=== PATIENT | female | born 1975 | race Caucasian/White ===

== ENCOUNTER 2017-02-11 15:47 | Inpatient (IN) | payer OTHER ==
[~2017-02-11] VITALS: Ht 152.4 cm; Wt 72.6 kg
[2017-02-11 18:34] LABS: ADD UMIC NO; URINE BILIRUBIN (Dip) NEGATIVE (NEGATIVE); URINE BLOOD (Dip) NEGATIVE (NEGATIVE); URINE COLOR LT. YELLOW (YELLOW); URINE GLUCOSE (Dip) NEGATIVE (NEGATIVE); URINE KETONES (Dip) NEGATIVE (NEGATIVE); URINE LEUKOCYTE ESTERASE (Dip) NEGATIVE (NEGATIVE); URINE NITRITE (Dip) NEGATIVE (NEGATIVE); URINE TOTAL PROTEIN (Dip) NEGATIVE (NEGATIVE); URINE UROBILINOGEN (Dip) 0.2 E.U./dL (0.1-1.0)
[2017-02-11 18:38] VITALS: Ht 152.4 cm; Wt 72.6 kg
[2017-02-11 19:14] VITALS: BP 116/67; PULSE 90; RESP 18
[2017-02-11 19:57] VITALS: BP 115/67; RESP 19
--- NOTE | 2017-02-11 19:59 | QN ---
Documentation Comment a/p htn cva hx lupus plan per order LINDSAY WEISS MD Feb 11, 2017 19:59
[2017-02-11] MEDS ORDERED: LACTULOSE 30ML CUP PO PRN (20:00)
[2017-02-11] MEDS ORDERED: MAGNESIUM HYDROXIDE 30ML CUP PO PRN (20:00)
[2017-02-11] MEDS ORDERED: PHENOL 1.4% SOLN 180 ML BTL MT PRN (20:00)
[2017-02-11] MEDS ORDERED: BISACODYL 10 MG SUPP PR PRN (20:00)
[2017-02-11] MEDS ORDERED: DIPHENHYDRAMINE 50 MG INJ IV PRN (20:00)
[2017-02-11] MEDS ORDERED: LORAZEPAM 2 MG INJ IV PRN (20:00)
[2017-02-11] MEDS: HYDROmorphONE 1 MG/ML SYG IV PRN (20:48)
[2017-02-11] MEDS: SENNA TAB PO SCH (21:35)
[2017-02-11] MEDS: ATORVASTATIN 20 MG TAB PO SCH (21:36)
[2017-02-11] MEDS: AMLODIPINE 5 MG TAB PO SCH (21:36)
[2017-02-11] MEDS: DOCUSATE SODIUM 100 MG CAP PO SCH (21:36)
[2017-02-11] MEDS: ENOXAPARIN 80 MG/0.8 ML SYG SC SCH (21:39)
[2017-02-11] MEDS: NACL 0.9% 3 ML SYG IV SCH (22:08)
[2017-02-12] MEDS: NACL 0.9% 3 ML SYG IV SCH ×3 (06:27→22:57)
[2017-02-12] MEDS: PANTOPRAZOLE 40 MG INJ IV SCH (06:28)
[2017-02-12 06:40] LABS: ADD SCAN DIFF NO
[2017-02-12 06:44] LABS: BASOPHILS % 0.3 % (0.0-2.0); EOSINOPHILS # 0.2 10^3/ul (0.0-0.5); EOSINOPHILS % 2.7 % (0.0-7.0); HEMATOCRIT 38.7 % (37.0-47.0); HEMOGLOBIN 12.5 g/dl (12.0-16.0); LYMPHOCYTES # 2.1 10^3/ul (0.8-2.9); MEAN CORPUSCULAR HEMOGLOBIN 27.4 pg (29.0-33.0); MEAN CORPUSCULAR HGB CONC 32.3 g/dl (32.0-37.0); MEAN CORPUSCULAR VOLUME 84.9 fl (82.0-101.0); MEAN PLATELET VOLUME 10.4 fl (7.4-10.4); MONOCYTE # 0.5 10^3/ul (0.3-0.9); MONOCYTES % 6.9 % (0.0-11.0); NEUTROPHIL # 4.6 10^3/ul (1.6-7.5); NEUTROPHILS % 61.8 % (39.0-77.0); PLATELET COUNT 306 10^3/UL (140-415); RED BLOOD COUNT 4.56 10^6/ul (4.20-5.40); RED CELL DISTRIBUTION WIDTH 13.7 % (11.5-14.5); WHITE BLOOD COUNT 7.5 10^3/ul (4.8-10.8)
[2017-02-12 06:57] LABS: ALBUMIN 3.6 g/dl (3.3-4.9)
[2017-02-12 06:58] LABS: POTASSIUM 3.9 mmol/L (3.5-5.1)
[2017-02-12 07:00] LABS: BILIRUBIN,INDIRECT 0.9 mg/dl (0-1.1); BILIRUBIN,TOTAL 0.9 mg/dl (0.2-1.3); CREATININE 0.67 mg/dl (0.44-1.00); TOTAL PROTEIN 7.2 g/dl (6.1-8.1)
[2017-02-12 07:01] LABS: CALCIUM 8.6 mg/dl (8.4-10.2)
[2017-02-12 08:00] VITALS: BP 97/57; RESP 20
[2017-02-12] MEDS: ASPIRIN (EC) 81 MG TAB PO SCH (09:36)
[2017-02-12] MEDS: ENOXAPARIN 80 MG/0.8 ML SYG SC SCH ×2 (09:37→20:53)
[2017-02-12] MEDS: DOCUSATE SODIUM 100 MG CAP PO SCH ×2 (09:38→20:52)
[2017-02-12] MEDS: ACETAMINOPHEN 325 MG TAB PO PRN ×2 (09:50→15:17)
--- NOTE | 2017-02-12 12:31 | HP ---
DATE OF ADMISSION: 02/11/2017 PHYSICAL MEDICINE AND REHABILITATION HISTORY AND PHYSICAL/POST- ADMISSION ASSESSMENT DATE OF VISIT: 02/12/2017 REHABILITATION IMPAIRMENT GROUP: Posterior left frontal lobe cerebrovascular accident. CHIEF COMPLAINT: Impaired mobility, left-sided weakness, difficulty with speech. HISTORY OF PRESENT ILLNESS: This is a 42-year-old right-handed female with past medical history significant for lupus and hypertension, who initially presented to outside hospital on 02/05/2017 with difficulty in speech and left- sided weakness. Workup done in the hospital including MRI brain which showed a large area of acute infarction involving the posterior left frontal lobe extending to the insular cortex. A CT angio showed no hemodynamically significant stenosis or occlusion, no aneurysms. The patient was evaluated by neurology. She was out of the window timeframe to receive TPA. She did have further workup per neurology, unfortunately our records here of her hospital stay there are limited. The patient's functional deficits noted to include significant left-sided weakness, aphasia, dysphagia as well as impairments in mobility and self-care ADLs. She did work with physical, occupational and speech therapy and noted to have significant functional decline from her baseline independent status. She was noted to have mild to moderate oropharyngeal dysphagia and ST recommended pureed diet with thin liquids. With physical therapy, she required minimal assistance for transfers and gait of 10 feet with a walker. She required moderate assistance for most of her ADLs. Due to her overall significant functional decline and ongoing medical comorbidities, she was thought to benefit from acute inpatient rehabilitation. PAST MEDICAL AND PAST SURGICAL HISTORY: As stated in the history of present illness including history of lupus and hypertension. FAMILY HISTORY: Reports noncontributory. SOCIAL HISTORY: Denies all current toxic habits. The patient lives with her in a two-story home with 12 steps to get to the second floor. No steps to enter the home. The patient's reports that she would be able to stay on the bottom floor on discharge if needed. Prior to her stroke, the patient was completely independent for all functional mobility and self-care ADLs and did not use any assistive device. Please see history and physical for current level of function MEDICATIONS ON ADMISSION: Reviewed in the electronic medical records including : 1. Aspirin. 2. Protonix. 3. Norvasc. 4. Lipitor. 5. Lovenox. 6. Colace. 7. Senokot. 8. Benadryl prn. 9. Dilaudid prn. 10. Ativan prn. 11. Phenol prn 12. Tylenol prn. 13. Dulcolax prn. 14. Milk of magnesia prn. 15. Lactulose prn. ALLERGIES: THE PATIENT IS ALLERGIC TO: 1. MORPHINE. 2. PREDNISONE. LABORATORIES/IMAGING: Reviewed in the electronic medical records. WBC 7.5, hemoglobin 12.5, hematocrit 38.7, platelets 306. Sodium 138, potassium 3.9, BUN 11, creatinine 0.67. REVIEW OF SYSTEMS: Limited by patient's aphasia. GENERAL: Denies fevers. No chills. EYES: She does report at times double vision since her stroke, but no new visual changes today. ENT: Significant for dysphagia, currently on modified diet. RESPIRATORY: Denies current shortness of breath. No cough. CARDIOVASCULAR: Denies chest pain. No palpitations. GENITOURINARY: Denies hematuria. No dysuria. GASTROINTESTINAL: No abdominal pain, no nausea, no vomiting. NEUROLOGICAL: Significant for left-sided weakness and left-sided hemisensory loss. MUSCULOSKELETAL: Significant for history of lupus. SKIN: Denies itching. PSYCHIATRIC: Denies history of anxiety or depression. A 10-point review of systems is otherwise negative. PHYSICAL EXAMINATION: VITAL SIGNS: Blood pressure 115/67, heart rate 99, temperature 98.2 Fahrenheit , O2 saturation 98% on room air. GENERAL: The patient is a well-nourished, well-developed, awake, alert, in no acute distress. HEENT: Normocephalic, atraumatic. Mucous membranes moist. Extraocular muscles are intact. NECK: Supple, nontender. RESPIRATORY: Respirations are nonlabored, symmetrical air entry bilaterally. No wheezing. No accessory muscle use. CARDIOVASCULAR: Regular rate and rhythm, audible S1, S2. ABDOMEN: Soft, nontender, bowel sounds present, no masses palpated. EXTREMITIES: Calves nontender. No cyanosis, no distal edema. SKIN: Rash underneath bilateral breasts. Skin is warm and dry. PSYCHIATRIC: Affect is somewhat flat. She is oriented to self, hospital (when given choices), and January 2017. MUSCULOSKELETAL/ NEUROLOGIC: The patient is awake, alert, in no acute distress. The patient is significantly aphasic, more so expressive component, and is communicating through a language board. She is able to follow simple commands and responds to yes/no questions. Extraocular muscles are intact. Reports decreased sensation on the left side of her face. Tongue protrudes midline. Overall on the right side she appears to have good to good plus strength with active range of motion within functional limits. Left upper extremity strength approximately 2 to 2+/5 with some pain reported with movement , possible neuropathic pain component, but reports discomfort from prior peripheral line that was infiltrated at prior hospital. Left hip flexors, knee extensors 2-/5, minimal movement at left ankle. Patient reports decreased sensation overall on the left. Tone testing limited due to patient somewhat guarding. No ankle clonus. IMPRESSION: 1. Acute infarction involving the posterior frontal lobe extending into the insular cortex. 2. Impaired mobility, gait and balance. 3. Impaired self-care activities of daily living. 4. Left nondominant hemiparesis. 5. Left hemisensory loss. 6. Aphasia 7. Oropharyngeal dysphagia. 8. Hypertension. 9. Lupus. PLAN: 1. The patient will be admitted for inpatient comprehensive interdisciplinary rehabilitation to address impairments of medical conditions listed above, while assessing equipment needs and compensatory strategies with coordinated interdisciplinary services that will include physical, occupational and speech therapy and close monitoring and treatment with 24-hour rehabilitation nursing. This interdisciplinary program will be performed under the direction of church secretary. The patient is anticipated to be able to tolerate 3 hours daily of therapies for at least 5/7 days per week. 2. Begin physical therapy for bed mobility, transfers, balance training, gait training, lower extremity strengthening, range of motion, coordination. 3. Begin occupational therapies for activities of daily living, functional transfers, patient education, adaptive equipment evaluation, upper extremity strengthening, range of motion, coordination. 4. Speech therapy for treatment of dysphagia as well as aphasia. 5. Rehabilitation nursing to provide the patient education regarding current medications as they relate to medical illness. Monitor pain, monitor bowel and bladder programs and administer such programs and reinforce those activities with therapies. 6. Dr. Ace is following for management of medical comorbidities. 7. For hypertension, currently blood pressure appears to be controlled on Norvasc. Internal medicine to adjust further as needed. 8. For her history of lupus, we will monitor for flareups and continue medical management per internal medicine. 9. Continue secondary stroke prevention per neurology recommendations. Have asked staff to try to obtain complete medical records from outside hospital. 10. Possible adjustment disorder in the setting of acute CVA. Monitor mood. REHABILITATION GOALS: Decrease overall burden of care on caregiver. Improve bed mobility, transfers, gait and self-care ADLs to standby assistance level with assistive device and adaptive equipment as needed. Improve speech and swallowing and be able to have the patient meet nutritional needs by mouth. ESTIMATED LENGTH OF STAY: Approximately 2-3 weeks. ANTICIPATED DISPOSITION: To home with family support. Her case will be discussed at the weekly interdisciplinary conference. PROGNOSIS: At the current time, this inpatient hospital rehabilitation stay is medically necessary to achieve important health and functional goals. The patient requires frequent physician visits, 24-hour rehabilitation nursing and a coordinated intensive rehabilitation program as described above to address complex medical, nursing and rehabilitation needs. The patient has a good prognosis for benefiting from this program and returning to home and community. REHABILITATION PHYSICIAN POST-ADMISSION ASSESSMENT REVIEW: I have had the opportunity to examine the patient within 24 hours of admission and have reviewed the preadmission assessment and find it consistent with my examination and evaluation of the patient. I confirm that this patient is appropriate for admission and treatment in this inpatient rehabilitation hospital. She needs intensive interdisciplinary rehabilitation care and is expected to achieve meaningful goals within a reasonable period of time that are consistent with the planned discharge disposition as noted above. Dictated By: PRABHA WAGGONER MD, RA/CLARKE Conf#: [id number] DID#: [id number] [id number]
--- NOTE | 2017-02-12 18:12 | CONS ---
Date/Time of Note Date/Time of Note DATE: 02/12/17 TIME: 18:03 Assessment/Plan Assessment/Plan Chief Complaint/Hosp Course 1. S/p stroke 2. expressive aphasia 3. Hypertension stable 4. History of lupus Problems: Additional Assessment/Plan 1. Control hypertension 2. Continue OT Consultation Date/Type/Reason Admit Date/Time Feb 11, 2017 at 17:51 Initial Consult Date 02/11/17 Type of Consultation: nephrology Reason for Consultation Dr Ace 24 HR Interval Summary Subjective hx not possible: pt non-verbal Exam/Review of Systems Vital Signs Vitals Vital Signs Date Time Temp Pulse Resp B/P Pulse Ox O2 Delivery O2 Flow Rate FiO2 02/12/17 08:00 98.1 80 20 97/57 96 02/11/17 19:14 Room Air Intake and Output 02/11/17 02/11/17 02/12/17 15:00 23:00 07:00 Intake Total 500 ml Balance 500 ml Exam Constitutional: alert Psych: no complaints Eyes: nl conjunctiva ENMT: nl external ears & nose Neck: supple Respiratory: clear to auscultation Cardiovascular: regular rate and rhythm Gastrointestinal: soft Results Result Diagram: 02/12/17 0600 02/12/17 0600 Results 24 hrs Laboratory Tests Test 02/11/17 18:21 02/12/17 06:00 Urine Color LT. YELLOW Urine Clarity CLEAR Urine pH 6.5 Urine Specific [place] 1.010 Urine Ketones NEGATIVE Urine Nitrite NEGATIVE Urine Bilirubin NEGATIVE Urine Urobilinogen 0.2 E.U./dL Urine Leukocyte Esterase NEGATIVE Urine Hemoglobin NEGATIVE Urine Glucose NEGATIVE Urine Total Protein NEGATIVE White Blood Count 7.5 Red Blood Count 4.56 Hemoglobin 12.5 Hematocrit 38.7 Mean Corpuscular Volume 84.9 Mean Corpuscular Hemoglobin 27.4 L Mean Corpuscular Hemoglobin Concent 32.3 Red Cell Distribution Width 13.7 Platelet Count 306 Mean Platelet Volume 10.4 Neutrophils % 61.8 Lymphocytes % 28.0 Monocytes % 6.9 Eosinophils % 2.7 Basophils % 0.3 Nucleated Red Blood Cells % 0.0 Neutrophils # 4.6 Lymphocytes # 2.1 Monocytes # 0.5 Eosinophils # 0.2 Basophils # 0.0 Nucleated Red Blood Cells # 0.0 Sodium Level 138 Potassium Level 3.9 Chloride Level 104 Carbon Dioxide Level 28 Anion Gap 10 Blood Urea Nitrogen 11 Creatinine 0.67 Glucose Level 90 Calcium Level 8.6 Total Bilirubin 0.9 Direct Bilirubin 0.00 Indirect Bilirubin 0.9 Aspartate Amino Transf (AST/SGOT) 23 Alanine Aminotransferase (ALT/SGPT) 22 Alkaline Phosphatase 103 Total Protein 7.2 Albumin 3.6 Globulin 3.60 H Albumin/Globulin Ratio 1.00 Medications Medications Current Medications Amlodipine Besylate (Norvasc) 5 mg HS PO Last administered on 02/11/17 21:36; Admin Dose 5 MG; Start 02/11/17 at 21:00 Atorvastatin Calcium (Lipitor) 20 mg DAILY@21 PO Last administered on 21:36; Admin Dose 20 MG; Start 02/11/17 at 21:00 Enoxaparin Sodium (Lovenox) 70 mg Q12 SC Last administered on 02/12/17 09:37; Admin Dose 70 MG; Start 02/11/17 at 21:00 Diphenhydramine HCl (Benadryl) 25 mg Q6H PRN IV ALLERGIC REACTION; Start at 20:00 Hydromorphone HCl (Dilaudid) 0.5 mg Q4H PRN IV PAIN 4-6 (MODERATE) Last administered on 02/11/17 20:48; Admin Dose 0.5 MG; Start 02/11/17 at 20:00 Lorazepam (Ativan) 0.5 mg Q6H PRN IV ANXIETY; Start 02/11/17 at 20:00 Pantoprazole (Protonix Iv) 40 mg DAILY@06 IV Last administered on 02/12/17 06: 28; Admin Dose 40 MG; Start 02/12/17 at 06:00 Phenol (Chloraseptic Throat [place]) 1 spray PRN PRN [place] SORE THROAT; Start at 20:00 IV Flush (NS 3 ml) 3 ml Q8 IV Last administered on 02/12/17 13:52; Admin Dose 3 ML; Start 02/11/17 at 22:00 Docusate Sodium (Colace) 100 mg BID PO Last administered on 02/12/17 09:38; Admin Dose 100 MG; Start 02/11/17 at 21:00 Senna (Senokot) 1 tab HS PO Last administered on 02/11/17 21:35; Admin Dose 1 TAB; Start 02/11/17 at 21:00 Acetaminophen (Tylenol Tab) 650 mg Q4H PRN PO PAIN Last administered on 15:17; Admin Dose 650 MG; Start 02/11/17 at 20:00 Bisacodyl (Dulcolax Supp) 10 mg DAILY PRN [place] CONSTIPATION; Start 02/11/17 at 20 :00 Magnesium Hydroxide (Milk Of Mag) 30 ml BID PRN PO CONSTIPATION; Start at 20:00 Lactulose (Enulose) 20 gm DAILY PRN PO CONSTIPATION; Start 02/11/17 at 20:00 SUSIE GRAVES Feb 12, 2017 18:12
[2017-02-12 20:02] VITALS: BP 116/66; RESP 18
[2017-02-12] MEDS: AMLODIPINE 5 MG TAB PO SCH (20:52)
[2017-02-12] MEDS: SENNA TAB PO SCH (20:52)
[2017-02-12] MEDS: ATORVASTATIN 20 MG TAB PO SCH (20:52)
[2017-02-12] MEDS: HYDROmorphONE 1 MG/ML SYG IV PRN (21:47)
[2017-02-13] MEDS: PANTOPRAZOLE 40 MG INJ IV SCH (06:40)
[2017-02-13] MEDS: NACL 0.9% 3 ML SYG IV SCH ×3 (06:40→22:08)
[2017-02-13 07:37] VITALS: BP 97/53; RESP 18
[2017-02-13] MEDS: ASPIRIN (EC) 81 MG TAB PO SCH (08:28)
[2017-02-13] MEDS: DOCUSATE SODIUM 100 MG CAP PO SCH ×2 (08:29→20:14)
[2017-02-13] MEDS: ENOXAPARIN 80 MG/0.8 ML SYG SC SCH ×2 (08:36→20:16)
[2017-02-13] MEDS: ACETAMINOPHEN 325 MG TAB PO PRN (11:38)
[2017-02-13] MEDS: HYDROmorphONE 1 MG/ML SYG IV PRN (14:04)
[2017-02-13] MEDS ORDERED: HYDROCODONE/APAP (5/325) TAB PO PRN (15:00)
--- NOTE | 2017-02-13 15:29 | PN ---
Date/Time of Note Date/Time of Note DATE: 02/13/17 TIME: 15:26 Assessment/Plan VTE Prophylaxis VTE Prophylaxis Intervention: other Lines/Catheters IV C[facility]ter Type (from [facility] [facility] Urinary Cath still in place: No Assessment/Plan Chief Complaint/Hosp Course HTN HX LUPUS CVA W LEFT SIDE WEAKNESS HX MIGRAINE Problems: Subjective 24 Hr Interval Summary Subjective hx not possible: other (LEFT SIDE WEAKNESS) Eyes: no complaints ENT: no complaints Respiratory: no complaints Cardiovascular: chest pain Gastrointestinal: no complaints Genitourinary: no complaints Musculoskeletal: back pain Skin: no complaints Neurologic: no complaints, other (LEFT SIDE WEAKNESS) Endocrine: no complaints Immunologic: no complaints Exam/Review of Systems Vital Signs Vitals Vital Signs Date Time Temp Pulse Resp B/P Pulse Ox O2 Delivery O2 Flow Rate FiO2 02/13/17 07:37 98.0 74 18 97/53 98 02/11/17 19:14 Room Air Intake and Output 02/12/17 02/12/17 02/13/17 15:00 23:00 07:00 Intake Total 1000 ml 700 ml Balance 1000 ml 700 ml Exam Constitutional: alert, non-verbal, oriented, well developed, No distress Psych: no complaints Head: normocephalic Eyes: nl conjunctiva ENMT: nl external ears & nose Neck: masses, non-tender, supple Respiratory: clear to auscultation, normal air movement Cardiovascular: nl pulses, regular rate and rhythm Gastrointestinal: nl liver, spleen, soft, No distended Musculoskeletal: nl extremities to inspection Extremities: normal pulses Neurological: CHEFS II-XII intact Results Result Diagram: 02/12/17 0600 02/12/17 0600 Medications Medications Current Medications Amlodipine Besylate (Norvasc) 5 mg HS PO Last administered on 02/12/17 20:52; Admin Dose 5 MG; Start 02/11/17 at 21:00 Atorvastatin Calcium (Lipitor) 20 mg DAILY@21 PO Last administered on 20:52; Admin Dose 20 MG; Start 02/11/17 at 21:00 Enoxaparin Sodium (Lovenox) 70 mg Q12 SC Last administered on 02/13/17 08:36; Admin Dose 70 MG; Start 02/11/17 at 21:00 Diphenhydramine HCl (Benadryl) 25 mg Q6H PRN IV ALLERGIC REACTION; Start at 20:00 Hydromorphone HCl (Dilaudid) 0.5 mg Q4H PRN IV PAIN 4-6 (MODERATE) Last administered on 02/13/17 14:04; Admin Dose 0.5 MG; Start 02/11/17 at 20:00 Lorazepam (Ativan) 0.5 mg Q6H PRN IV ANXIETY; Start 02/11/17 at 20:00 Pantoprazole (Protonix Iv) 40 mg DAILY@06 IV Last administered on 02/13/17 06: 40; Admin Dose 40 MG; Start 02/12/17 at 06:00 Phenol (Chloraseptic Throat [place]) 1 spray PRN PRN [place] SORE THROAT; Start at 20:00 IV Flush (NS 3 ml) 3 ml Q8 IV Last administered on 02/13/17 14:07; Admin Dose 3 ML; Start 02/11/17 at 22:00 Docusate Sodium (Colace) 100 mg BID PO Last administered on 02/13/17 08:29; Admin Dose 100 MG; Start 02/11/17 at 21:00 Senna (Senokot) 1 tab HS PO Last administered on 02/12/17 20:52; Admin Dose 1 TAB; Start 02/11/17 at 21:00 Acetaminophen (Tylenol Tab) 650 mg Q4H PRN PO PAIN Last administered on 11:38; Admin Dose 650 MG; Start 02/11/17 at 20:00 Bisacodyl (Dulcolax Supp) 10 mg DAILY PRN [place] CONSTIPATION; Start 02/11/17 at 20 :00 Magnesium Hydroxide (Milk Of Mag) 30 ml BID PRN PO CONSTIPATION; Start at 20:00 Lactulose (Enulose) 20 gm DAILY PRN PO CONSTIPATION; Start 02/11/17 at 20:00 Nystatin (Nystatin Powder) 1 applic BID TOP ; Start 02/13/17 at 21:00 Hydromorphone HCl (Dilaudid) 2 mg Q4H PRN PO PAIN; Start 02/13/17 at 15:00 LINDSAY WEISS MD Feb 13, 2017 15:29
[2017-02-13] MEDS: HYDROmorphONE 2 MG TAB PO PRN ×2 (18:16→22:09)
[2017-02-13] MEDS: SENNA TAB PO SCH (20:14)
[2017-02-13] MEDS: ATORVASTATIN 20 MG TAB PO SCH (20:14)
[2017-02-13] MEDS: NYSTATIN 30 GM POWDER BTL TOP SCH (20:16)
[2017-02-13] MEDS: AMLODIPINE 5 MG TAB PO SCH (20:20)
[2017-02-13 20:42] VITALS: BP 103/55; RESP 18
[2017-02-14] MEDS: PANTOPRAZOLE (EC) 40 MG TAB PO SCH (06:28)
[2017-02-14] MEDS: NACL 0.9% 3 ML SYG IV SCH ×3 (06:28→20:36)
[2017-02-14] MEDS: ASPIRIN (EC) 81 MG TAB PO SCH (08:11)
[2017-02-14] MEDS: HYDROmorphONE 1 MG/ML SYG IV PRN ×4 (08:11→17:46)
[2017-02-14] MEDS: DOCUSATE SODIUM 100 MG CAP PO SCH ×2 (09:00→20:35)
[2017-02-14] MEDS: NYSTATIN 30 GM POWDER BTL TOP SCH ×2 (09:00→20:37)
[2017-02-14] MEDS: ENOXAPARIN 80 MG/0.8 ML SYG SC SCH ×2 (10:08→20:37)
[2017-02-14] MEDS: HYDROmorphONE 2 MG TAB PO PRN ×2 (12:23→21:11)
--- NOTE | 2017-02-14 13:29 | CONS ---
Date/Time of Note Date/Time of Note DATE: 02/14/17 TIME: 13:28 Consult Date/Type/Reason Admit Date/Time Feb 11, 2017 at 17:51 Initial Consult Date Type of Consultation: nephrology Subjective Family conference held today and current medical and functional status reviewed , in addition to dc goals. Objective Vital Signs Date Time Temp Pulse Resp B/P Pulse Ox O2 Delivery O2 Flow Rate FiO2 02/13/17 20:42 98.2 68 18 103/55 98 02/11/17 19:14 Room Air Intake and Output 02/13/17 02/13/17 02/14/17 15:00 23:00 07:00 Intake Total 480 ml 240 ml 780 ml Balance 480 ml 240 ml 780 ml INTERDISCIPLINARY TEAM CONFERENCE BOWEL- Cont BLADDER-Cont SKIN- intact OT- DRESSING-mod/max BATHING-mod/max TOILETING-mod/max PT- BED MOBILITY-max TRANSFERS-max AMBULATION-max 20 feet W.C. MOBILITY-min/mod SPEECH- COGNITION-max DYPHAGIA- just upgraded from puree diet to mech soft A/P- Interdisciplinary team conference held today. Please see interdisciplinary sheet. Working toward d.c. with family with post discharge follow up of physical therapy, occupational therapy. Will pursue insurance authorization for further stay. Results/Medications Result Diagram: 02/12/17 0600 02/12/17 0600 Medications Current Medications Amlodipine Besylate (Norvasc) 5 mg HS PO Last administered on 02/12/17 20:52; Admin Dose 5 MG; Start 02/11/17 at 21:00 Atorvastatin Calcium (Lipitor) 20 mg DAILY@21 PO Last administered on 20:14; Admin Dose 20 MG; Start 02/11/17 at 21:00 Enoxaparin Sodium (Lovenox) 70 mg Q12 SC Last administered on 02/14/17 10:08; Admin Dose 70 MG; Start 02/11/17 at 21:00 Diphenhydramine HCl (Benadryl) 25 mg Q6H PRN IV ALLERGIC REACTION; Start at 20:00 Hydromorphone HCl (Dilaudid) 0.5 mg Q4H PRN IV PAIN 4-6 (MODERATE) Last administered on 02/14/17 10:00; Admin Dose 0.5 MG; Start 02/11/17 at 20:00 Lorazepam (Ativan) 0.5 mg Q6H PRN IV ANXIETY; Start 02/11/17 at 20:00 Phenol (Chloraseptic Throat [place]) 1 spray PRN PRN [place] SORE THROAT; Start at 20:00 IV Flush (NS 3 ml) 3 ml Q8 IV Last administered on 02/14/17 06:28; Admin Dose 3 ML; Start 02/11/17 at 22:00 Docusate Sodium (Colace) 100 mg BID PO Last administered on 02/13/17 20:14; Admin Dose 100 MG; Start 02/11/17 at 21:00 Senna (Senokot) 1 tab HS PO Last administered on 02/13/17 20:14; Admin Dose 1 TAB; Start 02/11/17 at 21:00 Acetaminophen (Tylenol Tab) 650 mg Q4H PRN PO PAIN Last administered on 11:38; Admin Dose 650 MG; Start 02/11/17 at 20:00 Bisacodyl (Dulcolax Supp) 10 mg DAILY PRN [place] CONSTIPATION; Start 02/11/17 at 20 :00 Magnesium Hydroxide (Milk Of Mag) 30 ml BID PRN PO CONSTIPATION; Start at 20:00 Lactulose (Enulose) 20 gm DAILY PRN PO CONSTIPATION; Start 02/11/17 at 20:00 Nystatin (Nystatin Powder) 1 applic BID TOP Last administered on 02/14/17 09: 00; Admin Dose 1 APPLIC; Start 02/13/17 at 21:00 Hydromorphone HCl (Dilaudid) 2 mg Q4H PRN PO PAIN Last administered on 12:23; Admin Dose 2 MG; Start 02/13/17 at 15:00 Pantoprazole (Protonix Tab) 40 mg DAILY@06 PO Last administered on 02/14/17 06 :28; Admin Dose 40 MG; Start 02/14/17 at 06:00 LARISSA WILLS MD Feb 14, 2017 13:29
--- NOTE | 2017-02-14 18:24 | CONS ---
Date/Time of Note Date/Time of Note DATE: 02/14/17 TIME: 18:24 Assessment/Plan Assessment/Plan Chief Complaint/Hosp Course HTN HX LUPUS CVA W LEFT SIDE WEAKNESS HX MIGRAINE better plan pt ot Problems: Consultation Date/Type/Reason Admit Date/Time Feb 11, 2017 at 17:51 Initial Consult Date Type of Consultation: nephrology 24 HR Interval Summary Constitutional: no complaints Exam/Review of Systems Vital Signs Vitals Vital Signs Date Time Temp Pulse Resp B/P Pulse Ox O2 Delivery O2 Flow Rate FiO2 02/13/17 20:42 98.2 68 18 103/55 98 02/11/17 19:14 Room Air Intake and Output 02/13/17 02/13/17 02/14/17 15:00 23:00 07:00 Intake Total 480 ml 240 ml 780 ml Balance 480 ml 240 ml 780 ml Exam Neck: supple Respiratory: clear to auscultation Cardiovascular: regular rate and rhythm Results Result Diagram: 02/12/17 0600 02/12/17 0600 Medications Medications Current Medications Amlodipine Besylate (Norvasc) 5 mg HS PO Last administered on 02/12/17 20:52; Admin Dose 5 MG; Start 02/11/17 at 21:00 Atorvastatin Calcium (Lipitor) 20 mg DAILY@21 PO Last administered on 20:14; Admin Dose 20 MG; Start 02/11/17 at 21:00 Enoxaparin Sodium (Lovenox) 70 mg Q12 SC Last administered on 02/14/17 10:08; Admin Dose 70 MG; Start 02/11/17 at 21:00 Diphenhydramine HCl (Benadryl) 25 mg Q6H PRN IV ALLERGIC REACTION; Start at 20:00 Hydromorphone HCl (Dilaudid) 0.5 mg Q4H PRN IV PAIN 4-6 (MODERATE) Last administered on 02/14/17 17:46; Admin Dose 0.5 MG; Start 02/11/17 at 20:00 Lorazepam (Ativan) 0.5 mg Q6H PRN IV ANXIETY; Start 02/11/17 at 20:00 Phenol (Chloraseptic Throat [place]) 1 spray PRN PRN [place] SORE THROAT; Start at 20:00 IV Flush (NS 3 ml) 3 ml Q8 IV Last administered on 02/14/17 14:33; Admin Dose 3 ML; Start 02/11/17 at 22:00 Docusate Sodium (Colace) 100 mg BID PO Last administered on 02/13/17 20:14; Admin Dose 100 MG; Start 02/11/17 at 21:00 Senna (Senokot) 1 tab HS PO Last administered on 02/13/17 20:14; Admin Dose 1 TAB; Start 02/11/17 at 21:00 Acetaminophen (Tylenol Tab) 650 mg Q4H PRN PO PAIN Last administered on 11:38; Admin Dose 650 MG; Start 02/11/17 at 20:00 Bisacodyl (Dulcolax Supp) 10 mg DAILY PRN [place] CONSTIPATION; Start 02/11/17 at 20 :00 Magnesium Hydroxide (Milk Of Mag) 30 ml BID PRN PO CONSTIPATION; Start at 20:00 Lactulose (Enulose) 20 gm DAILY PRN PO CONSTIPATION; Start 02/11/17 at 20:00 Nystatin (Nystatin Powder) 1 applic BID TOP Last administered on 02/14/17 09: 00; Admin Dose 1 APPLIC; Start 02/13/17 at 21:00 Hydromorphone HCl (Dilaudid) 2 mg Q4H PRN PO PAIN Last administered on 12:23; Admin Dose 2 MG; Start 02/13/17 at 15:00 Pantoprazole (Protonix Tab) 40 mg DAILY@06 PO Last administered on 02/14/17 06 :28; Admin Dose 40 MG; Start 02/14/17 at 06:00 LINDSAY WEISS MD Feb 14, 2017 18:24
[2017-02-14 19:47] VITALS: BP 117/67; RESP 20
[2017-02-14] MEDS: ATORVASTATIN 20 MG TAB PO SCH (20:35)
[2017-02-14] MEDS: SENNA TAB PO SCH (20:35)
[2017-02-14] MEDS: AMLODIPINE 5 MG TAB PO SCH (20:39)
[2017-02-15] MEDS: PANTOPRAZOLE (EC) 40 MG TAB PO SCH (06:46)
[2017-02-15] MEDS: NACL 0.9% 3 ML SYG IV SCH ×3 (06:47→21:15)
[2017-02-15 08:08] VITALS: BP 101/59; RESP 18
[2017-02-15] MEDS: DOCUSATE SODIUM 100 MG CAP PO SCH ×2 (08:27→21:11)
[2017-02-15] MEDS: ASPIRIN (EC) 81 MG TAB PO SCH (08:27)
[2017-02-15] MEDS: ENOXAPARIN 80 MG/0.8 ML SYG SC SCH ×2 (08:31→21:23)
[2017-02-15] MEDS: NYSTATIN 30 GM POWDER BTL TOP SCH ×2 (09:02→21:22)
[2017-02-15] MEDS: HYDROmorphONE 1 MG/ML SYG IV PRN ×4 (09:28→18:32)
[2017-02-15] MEDS: HYDROmorphONE 2 MG TAB PO PRN (10:51)
--- NOTE | 2017-02-15 10:53 | CONS ---
Date/Time of Note Date/Time of Note DATE: 02/15/17 TIME: 10:53 Consult Date/Type/Reason Admit Date/Time Feb 11, 2017 at 17:51 Type of Consultation: nephrology Subjective Patient motivated Objective pulm-cta abd-soft Vital Signs Date Time Temp Pulse Resp B/P Pulse Ox O2 Delivery O2 Flow Rate FiO2 02/15/17 08:08 98.2 62 18 101/59 97 02/11/17 19:14 Room Air Intake and Output 02/14/17 02/14/17 02/15/17 14:59 22:59 06:59 Intake Total 300 ml 520 ml 300 ml Balance 300 ml 520 ml 300 ml Results/Medications Result Diagram: 02/12/17 0600 02/12/17 0600 Medications Current Medications Amlodipine Besylate (Norvasc) 5 mg HS PO Last administered on 02/14/17 20:39; Admin Dose 5 MG; Start 02/11/17 at 21:00 Atorvastatin Calcium (Lipitor) 20 mg DAILY@21 PO Last administered on 20:35; Admin Dose 20 MG; Start 02/11/17 at 21:00 Enoxaparin Sodium (Lovenox) 70 mg Q12 SC Last administered on 02/15/17 08:31; Admin Dose 70 MG; Start 02/11/17 at 21:00 Diphenhydramine HCl (Benadryl) 25 mg Q6H PRN IV ALLERGIC REACTION; Start at 20:00 Hydromorphone HCl (Dilaudid) 0.5 mg Q4H PRN IV PAIN 4-6 (MODERATE) Last administered on 02/15/17 09:28; Admin Dose 0.5 MG; Start 02/11/17 at 20:00 Lorazepam (Ativan) 0.5 mg Q6H PRN IV ANXIETY; Start 02/11/17 at 20:00 Phenol (Chloraseptic Throat [place]) 1 spray PRN PRN [place] SORE THROAT; Start at 20:00 IV Flush (NS 3 ml) 3 ml Q8 IV Last administered on 02/15/17 06:47; Admin Dose 3 ML; Start 02/11/17 at 22:00 Docusate Sodium (Colace) 100 mg BID PO Last administered on 02/15/17 08:27; Admin Dose 100 MG; Start 02/11/17 at 21:00 Senna (Senokot) 1 tab HS PO Last administered on 02/14/17 20:35; Admin Dose 1 TAB; Start 02/11/17 at 21:00 Acetaminophen (Tylenol Tab) 650 mg Q4H PRN PO PAIN Last administered on 11:38; Admin Dose 650 MG; Start 02/11/17 at 20:00 Bisacodyl (Dulcolax Supp) 10 mg DAILY PRN [place] CONSTIPATION; Start 02/11/17 at 20 :00 Magnesium Hydroxide (Milk Of Mag) 30 ml BID PRN PO CONSTIPATION; Start at 20:00 Lactulose (Enulose) 20 gm DAILY PRN PO CONSTIPATION; Start 02/11/17 at 20:00 Nystatin (Nystatin Powder) 1 applic BID TOP Last administered on 02/15/17 09: 02; Admin Dose 1 APPLIC; Start 02/13/17 at 21:00 Hydromorphone HCl (Dilaudid) 2 mg Q4H PRN PO PAIN Last administered on 10:51; Admin Dose 2 MG; Start 02/13/17 at 15:00 Pantoprazole (Protonix Tab) 40 mg DAILY@06 PO Last administered on 02/15/17 06 :46; Admin Dose 40 MG; Start 02/14/17 at 06:00 Assessment/Plan Additional Assessment/Plan Rehab- Posterior L frontal infarct CVA Continue rehab program SLE HTN Dysphagia- improving LARISSA WILLS MD Feb 15, 2017 10:53
[2017-02-15] MEDS ORDERED: traMADol 50 MG TAB PO SCH (12:00)
[2017-02-15 15:20] VITALS: BP 125/65
--- NOTE | 2017-02-15 18:48 | PN ---
Date/Time of Note Date/Time of Note DATE: 02/15/17 TIME: 18:47 Assessment/Plan VTE Prophylaxis VTE Prophylaxis Intervention: other Lines/Catheters IV Catheter Type (from Nrs): Saline Lock Urinary Cath still in place: No Assessment/Plan Chief Complaint/Hosp Course HTN HX LUPUS CVA W LEFT SIDE WEAKNESS HX MIGRAINE better dizziness plan pt ot antivert Problems: Subjective 24 Hr Interval Summary Cardiovascular: no complaints Gastrointestinal: no complaints Genitourinary: no complaints Exam/Review of Systems Vital Signs Vitals Vital Signs Date Time Temp Pulse Resp B/P Pulse Ox O2 Delivery O2 Flow Rate FiO2 02/15/17 15:20 125/65 02/15/17 08:08 98.2 62 18 97 02/11/17 19:14 Room Air Intake and Output 02/14/17 02/14/17 02/15/17 15:00 23:00 07:00 Intake Total 300 ml 520 ml 300 ml Balance 300 ml 520 ml 300 ml Exam Respiratory: clear to auscultation Cardiovascular: regular rate and rhythm Gastrointestinal: soft Musculoskeletal: nl extremities to inspection Extremities: normal pulses Results Result Diagram: 02/12/17 0600 02/12/17 0600 Medications Medications Current Medications Amlodipine Besylate (Norvasc) 5 mg HS PO Last administered on 02/14/17 20:39; Admin Dose 5 MG; Start 02/11/17 at 21:00 Atorvastatin Calcium (Lipitor) 20 mg DAILY@21 PO Last administered on 20:35; Admin Dose 20 MG; Start 02/11/17 at 21:00 Enoxaparin Sodium (Lovenox) 70 mg Q12 SC Last administered on 02/15/17 08:31; Admin Dose 70 MG; Start 02/11/17 at 21:00 Diphenhydramine HCl (Benadryl) 25 mg Q6H PRN IV ALLERGIC REACTION; Start at 20:00 Hydromorphone HCl (Dilaudid) 0.5 mg Q4H PRN IV PAIN 4-6 (MODERATE) Last administered on 02/15/17 18:32; Admin Dose 0.5 MG; Start 02/11/17 at 20:00 Lorazepam (Ativan) 0.5 mg Q6H PRN IV ANXIETY; Start 02/11/17 at 20:00 Phenol (Chloraseptic Throat [place]) 1 spray PRN PRN [place] SORE THROAT; Start at 20:00 IV Flush (NS 3 ml) 3 ml Q8 IV Last administered on 02/15/17 14:00; Admin Dose 3 ML; Start 02/11/17 at 22:00 Docusate Sodium (Colace) 100 mg BID PO Last administered on 02/15/17 08:27; Admin Dose 100 MG; Start 02/11/17 at 21:00 Senna (Senokot) 1 tab HS PO Last administered on 02/14/17 20:35; Admin Dose 1 TAB; Start 02/11/17 at 21:00 Acetaminophen (Tylenol Tab) 650 mg Q4H PRN PO PAIN Last administered on 11:38; Admin Dose 650 MG; Start 02/11/17 at 20:00 Bisacodyl (Dulcolax Supp) 10 mg DAILY PRN [place] CONSTIPATION; Start 02/11/17 at 20 :00 Magnesium Hydroxide (Milk Of Mag) 30 ml BID PRN PO CONSTIPATION; Start at 20:00 Lactulose (Enulose) 20 gm DAILY PRN PO CONSTIPATION; Start 02/11/17 at 20:00 Nystatin (Nystatin Powder) 1 applic BID TOP Last administered on 02/15/17 09: 02; Admin Dose 1 APPLIC; Start 02/13/17 at 21:00 Hydromorphone HCl (Dilaudid) 2 mg Q4H PRN PO PAIN Last administered on 10:51; Admin Dose 2 MG; Start 02/13/17 at 15:00 Pantoprazole (Protonix Tab) 40 mg DAILY@06 PO Last administered on 02/15/17 06 :46; Admin Dose 40 MG; Start 02/14/17 at 06:00 Tramadol HCl (Ultram) 50 mg Q6 PRN PO PAIN LEVEL 1-5; Start 02/15/17 at 14:00 Meclizine HCl (Antivert) 12.5 mg TID PRN PO dizziness; Start 02/15/17 at 19:00 LINDSAY WEISS MD Feb 15, 2017 18:47
[2017-02-15 20:21] VITALS: BP 103/68; RESP 20
[2017-02-15] MEDS: MECLIZINE 12.5 MG TAB PO PRN (20:58)
[2017-02-15 21:00] VITALS: BP 94/56; PULSE 74
[2017-02-15] MEDS: AMLODIPINE 5 MG TAB PO SCH ×2 (21:00→21:13)
[2017-02-15] MEDS: SENNA TAB PO SCH (21:11)
[2017-02-15] MEDS: ATORVASTATIN 20 MG TAB PO SCH (21:11)
[2017-02-16] MEDS: NACL 0.9% 3 ML SYG IV SCH ×3 (06:30→21:49)
[2017-02-16] MEDS: PANTOPRAZOLE (EC) 40 MG TAB PO SCH (06:30)
[2017-02-16] MEDS: DOCUSATE SODIUM 100 MG CAP PO SCH ×2 (08:55→21:48)
[2017-02-16] MEDS: ASPIRIN (EC) 81 MG TAB PO SCH (08:55)
[2017-02-16] MEDS: HYDROmorphONE 2 MG TAB PO PRN ×2 (08:56→19:11)
[2017-02-16] MEDS: ENOXAPARIN 80 MG/0.8 ML SYG SC SCH ×2 (08:57→22:55)
[2017-02-16] MEDS: NYSTATIN 30 GM POWDER BTL TOP SCH ×2 (08:59→21:49)
[2017-02-16 09:55] VITALS: BP 99/55; RESP 18
[2017-02-16] MEDS: ACETAMINOPHEN 325 MG TAB PO PRN ×2 (11:34→21:13)
--- NOTE | 2017-02-16 12:35 | CONS ---
Date/Time of Note Date/Time of Note DATE: 02/16/17 TIME: 12:33 Consult Date/Type/Reason Admit Date/Time Feb 11, 2017 at 17:51 Type of Consultation: nephrology Subjective Improving speech verbal output Objective pulm-cta max transfer and ambulation Vital Signs Date Time Temp Pulse Resp B/P Pulse Ox O2 Delivery O2 Flow Rate FiO2 02/16/17 09:55 98.2 66 18 99/55 98 Intake and Output 02/15/17 02/15/17 02/16/17 15:00 23:00 07:00 Intake Total 480 ml 240 ml 700 ml Balance 480 ml 240 ml 700 ml Results/Medications Result Diagram: 02/12/17 0600 02/12/17 0600 Medications Current Medications Amlodipine Besylate (Norvasc) 5 mg HS PO Last administered on 02/14/17 20:39; Admin Dose 5 MG; Start 02/11/17 at 21:00 Atorvastatin Calcium (Lipitor) 20 mg DAILY@21 PO Last administered on 21:11; Admin Dose 20 MG; Start 02/11/17 at 21:00 Enoxaparin Sodium (Lovenox) 70 mg Q12 SC Last administered on 02/16/17 08:57; Admin Dose 70 MG; Start 02/11/17 at 21:00 Diphenhydramine HCl (Benadryl) 25 mg Q6H PRN IV ALLERGIC REACTION; Start at 20:00 Hydromorphone HCl (Dilaudid) 0.5 mg Q4H PRN IV PAIN 4-6 (MODERATE) Last administered on 02/15/17 18:32; Admin Dose 0.5 MG; Start 02/11/17 at 20:00 Lorazepam (Ativan) 0.5 mg Q6H PRN IV ANXIETY; Start 02/11/17 at 20:00 Phenol (Chloraseptic Throat [place]) 1 spray PRN PRN [place] SORE THROAT; Start at 20:00 IV Flush (NS 3 ml) 3 ml Q8 IV Last administered on 02/16/17 06:30; Admin Dose 3 ML; Start 02/11/17 at 22:00 Docusate Sodium (Colace) 100 mg BID PO Last administered on 02/16/17 08:55; Admin Dose 100 MG; Start 02/11/17 at 21:00 Senna (Senokot) 1 tab HS PO Last administered on 02/15/17 21:11; Admin Dose 1 TAB; Start 02/11/17 at 21:00 Acetaminophen (Tylenol Tab) 650 mg Q4H PRN PO PAIN Last administered on 11:34; Admin Dose 650 MG; Start 02/11/17 at 20:00 Bisacodyl (Dulcolax Supp) 10 mg DAILY PRN [place] CONSTIPATION; Start 02/11/17 at 20 :00 Magnesium Hydroxide (Milk Of Mag) 30 ml BID PRN PO CONSTIPATION; Start at 20:00 Lactulose (Enulose) 20 gm DAILY PRN PO CONSTIPATION; Start 02/11/17 at 20:00 Nystatin (Nystatin Powder) 1 applic BID TOP Last administered on 02/16/17 08: 59; Admin Dose 1 APPLIC; Start 02/13/17 at 21:00 Hydromorphone HCl (Dilaudid) 2 mg Q4H PRN PO PAIN Last administered on 08:56; Admin Dose 2 MG; Start 02/13/17 at 15:00 Pantoprazole (Protonix Tab) 40 mg DAILY@06 PO Last administered on 02/16/17 06 :30; Admin Dose 40 MG; Start 02/14/17 at 06:00 Tramadol HCl (Ultram) 50 mg Q6 PRN PO PAIN LEVEL 1-5; Start 02/15/17 at 14:00 Meclizine HCl (Antivert) 12.5 mg TID PRN PO dizziness Last administered on 02/15 20:58; Admin Dose 12.5 MG; Start 02/15/17 at 19:00 Assessment/Plan Additional Assessment/Plan Rehab- Posterior L frontal infarct CVA Continue rehab program SLE HTN Dysphagia- improving LARISSA WILLS MD Feb 16, 2017 12:35
[2017-02-16] MEDS: HYDROmorphONE 1 MG/ML SYG IV PRN (13:30)
[2017-02-16] MEDS: MECLIZINE 12.5 MG TAB PO PRN (14:38)
--- NOTE | 2017-02-16 19:27 | CONS ---
Date/Time of Note Date/Time of Note DATE: 02/16/17 TIME: 19:27 Assessment/Plan Assessment/Plan Chief Complaint/Hosp Course HTN HX LUPUS CVA W LEFT SIDE WEAKNESS HX MIGRAINE better dizziness plan pt ot antivert Problems: Consultation Date/Type/Reason Admit Date/Time Feb 11, 2017 at 17:51 Type of Consultation: nephrology 24 HR Interval Summary Constitutional: no complaints Exam/Review of Systems Vital Signs Vitals Vital Signs Date Time Temp Pulse Resp B/P Pulse Ox O2 Delivery O2 Flow Rate FiO2 02/16/17 09:55 98.2 66 18 99/55 98 Intake and Output 02/15/17 02/15/17 02/16/17 15:00 23:00 07:00 Intake Total 480 ml 240 ml 700 ml Balance 480 ml 240 ml 700 ml Exam Respiratory: clear to auscultation Cardiovascular: regular rate and rhythm Gastrointestinal: soft Musculoskeletal: nl extremities to inspection Results Result Diagram: 02/12/17 0600 02/12/17 0600 Medications Medications Current Medications Amlodipine Besylate (Norvasc) 5 mg HS PO Last administered on 02/14/17 20:39; Admin Dose 5 MG; Start 02/11/17 at 21:00 Atorvastatin Calcium (Lipitor) 20 mg DAILY@21 PO Last administered on 21:11; Admin Dose 20 MG; Start 02/11/17 at 21:00 Enoxaparin Sodium (Lovenox) 70 mg Q12 SC Last administered on 02/16/17 08:57; Admin Dose 70 MG; Start 02/11/17 at 21:00 Diphenhydramine HCl (Benadryl) 25 mg Q6H PRN IV ALLERGIC REACTION; Start at 20:00 Hydromorphone HCl (Dilaudid) 0.5 mg Q4H PRN IV PAIN 4-6 (MODERATE) Last administered on 02/16/17 13:30; Admin Dose 0.5 MG; Start 02/11/17 at 20:00 Lorazepam (Ativan) 0.5 mg Q6H PRN IV ANXIETY; Start 02/11/17 at 20:00 Phenol (Chloraseptic Throat [place]) 1 spray PRN PRN [place] SORE THROAT; Start at 20:00 IV Flush (NS 3 ml) 3 ml Q8 IV Last administered on 02/16/17 13:30; Admin Dose 3 ML; Start 02/11/17 at 22:00 Docusate Sodium (Colace) 100 mg BID PO Last administered on 02/16/17 08:55; Admin Dose 100 MG; Start 02/11/17 at 21:00 Senna (Senokot) 1 tab HS PO Last administered on 02/15/17 21:11; Admin Dose 1 TAB; Start 02/11/17 at 21:00 Acetaminophen (Tylenol Tab) 650 mg Q4H PRN PO PAIN Last administered on 11:34; Admin Dose 650 MG; Start 02/11/17 at 20:00 Bisacodyl (Dulcolax Supp) 10 mg DAILY PRN [place] CONSTIPATION; Start 02/11/17 at 20 :00 Magnesium Hydroxide (Milk Of Mag) 30 ml BID PRN PO CONSTIPATION; Start at 20:00 Lactulose (Enulose) 20 gm DAILY PRN PO CONSTIPATION; Start 02/11/17 at 20:00 Nystatin (Nystatin Powder) 1 applic BID TOP Last administered on 02/16/17 08: 59; Admin Dose 1 APPLIC; Start 02/13/17 at 21:00 Hydromorphone HCl (Dilaudid) 2 mg Q4H PRN PO PAIN Last administered on 19:11; Admin Dose 2 MG; Start 02/13/17 at 15:00 Pantoprazole (Protonix Tab) 40 mg DAILY@06 PO Last administered on 02/16/17 06 :30; Admin Dose 40 MG; Start 02/14/17 at 06:00 Tramadol HCl (Ultram) 50 mg Q6 PRN PO PAIN LEVEL 1-5; Start 02/15/17 at 14:00 Meclizine HCl (Antivert) 12.5 mg TID PRN PO dizziness Last administered on 02/16 14:38; Admin Dose 12.5 MG; Start 02/15/17 at 19:00 LINDSAY WEISS MD Feb 16, 2017 19:27
[2017-02-16 19:34] VITALS: BP 112/62; RESP 20
[2017-02-16] MEDS: AMLODIPINE 5 MG TAB PO SCH (21:00)
[2017-02-16] MEDS: SENNA TAB PO SCH (21:48)
[2017-02-16] MEDS: ATORVASTATIN 20 MG TAB PO SCH (21:48)
[2017-02-16 21:54] VITALS: BP 80/55; PULSE 67
[2017-02-17 00:10] VITALS: BP 83/53; PULSE 68
[2017-02-17 02:00] VITALS: BP 95/52; PULSE 69
[2017-02-17] MEDS: PANTOPRAZOLE (EC) 40 MG TAB PO SCH (05:35)
[2017-02-17] MEDS: NACL 0.9% 3 ML SYG IV SCH ×3 (05:43→22:05)
[2017-02-17 07:30] VITALS: BP 106/60; RESP 18
[2017-02-17] MEDS: NYSTATIN 30 GM POWDER BTL TOP SCH ×2 (08:44→20:43)
[2017-02-17] MEDS: ASPIRIN (EC) 81 MG TAB PO SCH (08:44)
[2017-02-17] MEDS: ENOXAPARIN 80 MG/0.8 ML SYG SC SCH ×2 (08:45→20:47)
[2017-02-17] MEDS: DOCUSATE SODIUM 100 MG CAP PO SCH ×2 (08:46→20:42)
--- NOTE | 2017-02-17 11:58 | CONS ---
Date/Time of Note Date/Time of Note DATE: 02/17/17 TIME: 11:56 Consult Date/Type/Reason Admit Date/Time Feb 11, 2017 at 17:51 Type of Consultation: nephrology Subjective Patient making excellent progress. Able to say "Good Morning" Objective pulm-cta abd-soft min assist ambulation Vital Signs Date Time Temp Pulse Resp B/P Pulse Ox O2 Delivery O2 Flow Rate FiO2 02/17/17 02:00 69 95/52 02/16/17 19:34 98.8 20 100 Intake and Output 02/16/17 02/16/17 02/17/17 14:59 22:59 06:59 Intake Total 480 ml 1080 ml 300 ml Balance 480 ml 1080 ml 300 ml Results/Medications Medications Current Medications Amlodipine Besylate (Norvasc) 5 mg HS PO Last administered on 02/14/17 20:39; Admin Dose 5 MG; Start 02/11/17 at 21:00 Atorvastatin Calcium (Lipitor) 20 mg DAILY@21 PO Last administered on 21:48; Admin Dose 20 MG; Start 02/11/17 at 21:00 Enoxaparin Sodium (Lovenox) 70 mg Q12 SC Last administered on 02/17/17 08:45; Admin Dose 70 MG; Start 02/11/17 at 21:00 Diphenhydramine HCl (Benadryl) 25 mg Q6H PRN IV ALLERGIC REACTION; Start at 20:00 Hydromorphone HCl (Dilaudid) 0.5 mg Q4H PRN IV PAIN 4-6 (MODERATE) Last administered on 02/16/17 13:30; Admin Dose 0.5 MG; Start 02/11/17 at 20:00 Lorazepam (Ativan) 0.5 mg Q6H PRN IV ANXIETY; Start 02/11/17 at 20:00 Phenol (Chloraseptic Throat [place]) 1 spray PRN PRN [place] SORE THROAT; Start at 20:00 IV Flush (NS 3 ml) 3 ml Q8 IV Last administered on 02/17/17 05:43; Admin Dose 3 ML; Start 02/11/17 at 22:00 Docusate Sodium (Colace) 100 mg BID PO Last administered on 02/17/17 08:46; Admin Dose 100 MG; Start 02/11/17 at 21:00 Senna (Senokot) 1 tab HS PO Last administered on 02/16/17 21:48; Admin Dose 1 TAB; Start 02/11/17 at 21:00 Acetaminophen (Tylenol Tab) 650 mg Q4H PRN PO PAIN Last administered on 21:13; Admin Dose 650 MG; Start 02/11/17 at 20:00 Bisacodyl (Dulcolax Supp) 10 mg DAILY PRN [place] CONSTIPATION; Start 02/11/17 at 20 :00 Magnesium Hydroxide (Milk Of Mag) 30 ml BID PRN PO CONSTIPATION; Start at 20:00 Lactulose (Enulose) 20 gm DAILY PRN PO CONSTIPATION; Start 02/11/17 at 20:00 Nystatin (Nystatin Powder) 1 applic BID TOP Last administered on 02/17/17 08: 44; Admin Dose 1 APPLIC; Start 02/13/17 at 21:00 Hydromorphone HCl (Dilaudid) 2 mg Q4H PRN PO PAIN Last administered on 19:11; Admin Dose 2 MG; Start 02/13/17 at 15:00 Pantoprazole (Protonix Tab) 40 mg DAILY@06 PO Last administered on 02/17/17 05 :35; Admin Dose 40 MG; Start 02/14/17 at 06:00 Tramadol HCl (Ultram) 50 mg Q6 PRN PO PAIN LEVEL 1-5; Start 02/15/17 at 14:00 Meclizine HCl (Antivert) 12.5 mg TID PRN PO dizziness Last administered on 02/16 14:38; Admin Dose 12.5 MG; Start 02/15/17 at 19:00 Assessment/Plan Additional Assessment/Plan Rehab- Posterior L frontal infarct CVA Continue rehab interdisciplinary program. Patient motivated for all activities. SLE HTN Dysphagia- improving LARISSA WILLS MD Feb 17, 2017 11:58
[2017-02-17] MEDS: HYDROmorphONE 2 MG TAB PO PRN ×2 (14:16→20:43)
--- NOTE | 2017-02-17 19:54 | CONS ---
Date/Time of Note Date/Time of Note DATE: 02/17/17 TIME: 19:53 Assessment/Plan Assessment/Plan Chief Complaint/Hosp Course HTN HX LUPUS CVA W LEFT SIDE WEAKNESS HX MIGRAINE better dizziness plan pt ot antivert prn Problems: Consultation Date/Type/Reason Admit Date/Time Feb 11, 2017 at 17:51 Type of Consultation: nephrology 24 HR Interval Summary Constitutional: no complaints Exam/Review of Systems Vital Signs Vitals Vital Signs Date Time Temp Pulse Resp B/P Pulse Ox O2 Delivery O2 Flow Rate FiO2 02/17/17 07:30 98.3 69 18 106/60 98 Intake and Output 02/16/17 02/16/17 02/17/17 15:00 23:00 07:00 Intake Total 480 ml 1080 ml 300 ml Balance 480 ml 1080 ml 300 ml Exam Respiratory: clear to auscultation Cardiovascular: regular rate and rhythm Medications Medications Current Medications Amlodipine Besylate (Norvasc) 5 mg HS PO Last administered on 02/14/17 20:39; Admin Dose 5 MG; Start 02/11/17 at 21:00 Atorvastatin Calcium (Lipitor) 20 mg DAILY@21 PO Last administered on 21:48; Admin Dose 20 MG; Start 02/11/17 at 21:00 Enoxaparin Sodium (Lovenox) 70 mg Q12 SC Last administered on 02/17/17 08:45; Admin Dose 70 MG; Start 02/11/17 at 21:00 Diphenhydramine HCl (Benadryl) 25 mg Q6H PRN IV ALLERGIC REACTION; Start at 20:00 Hydromorphone HCl (Dilaudid) 0.5 mg Q4H PRN IV PAIN 4-6 (MODERATE) Last administered on 02/16/17 13:30; Admin Dose 0.5 MG; Start 02/11/17 at 20:00 Lorazepam (Ativan) 0.5 mg Q6H PRN IV ANXIETY; Start 02/11/17 at 20:00 Phenol (Chloraseptic Throat [place]) 1 spray PRN PRN [place] SORE THROAT; Start at 20:00 IV Flush (NS 3 ml) 3 ml Q8 IV Last administered on 02/17/17 14:17; Admin Dose 3 ML; Start 02/11/17 at 22:00 Docusate Sodium (Colace) 100 mg BID PO Last administered on 02/17/17 08:46; Admin Dose 100 MG; Start 02/11/17 at 21:00 Senna (Senokot) 1 tab HS PO Last administered on 02/16/17 21:48; Admin Dose 1 TAB; Start 02/11/17 at 21:00 Acetaminophen (Tylenol Tab) 650 mg Q4H PRN PO PAIN Last administered on 21:13; Admin Dose 650 MG; Start 02/11/17 at 20:00 Bisacodyl (Dulcolax Supp) 10 mg DAILY PRN [place] CONSTIPATION; Start 02/11/17 at 20 :00 Magnesium Hydroxide (Milk Of Mag) 30 ml BID PRN PO CONSTIPATION; Start at 20:00 Lactulose (Enulose) 20 gm DAILY PRN PO CONSTIPATION; Start 02/11/17 at 20:00 Nystatin (Nystatin Powder) 1 applic BID TOP Last administered on 02/17/17 08: 44; Admin Dose 1 APPLIC; Start 02/13/17 at 21:00 Hydromorphone HCl (Dilaudid) 2 mg Q4H PRN PO PAIN Last administered on 14:16; Admin Dose 2 MG; Start 02/13/17 at 15:00 Pantoprazole (Protonix Tab) 40 mg DAILY@06 PO Last administered on 02/17/17 05 :35; Admin Dose 40 MG; Start 02/14/17 at 06:00 Tramadol HCl (Ultram) 50 mg Q6 PRN PO PAIN LEVEL 1-5; Start 02/15/17 at 14:00 Meclizine HCl (Antivert) 12.5 mg TID PRN PO dizziness Last administered on 02/16 14:38; Admin Dose 12.5 MG; Start 02/15/17 at 19:00 LINDSAY WEISS MD Feb 17, 2017 19:54
[2017-02-17 20:00] VITALS: BP 107/66; PULSE 75; RESP 20
[2017-02-17] MEDS: SENNA TAB PO SCH (20:42)
[2017-02-17] MEDS: ATORVASTATIN 20 MG TAB PO SCH (20:42)
[2017-02-17] MEDS: AMLODIPINE 5 MG TAB PO SCH (20:43)
[2017-02-18] MEDS: PANTOPRAZOLE (EC) 40 MG TAB PO SCH (06:44)
[2017-02-18] MEDS: NACL 0.9% 3 ML SYG IV SCH (06:44)
[2017-02-18 07:30] VITALS: BP 100/62; RESP 18
[2017-02-18] MEDS: DOCUSATE SODIUM 100 MG CAP PO SCH ×2 (08:49→21:46)
[2017-02-18] MEDS: ASPIRIN (EC) 81 MG TAB PO SCH (08:49)
[2017-02-18] MEDS: ENOXAPARIN 80 MG/0.8 ML SYG SC SCH ×2 (08:52→21:49)
[2017-02-18] MEDS: NYSTATIN 30 GM POWDER BTL TOP SCH ×2 (08:52→21:50)
[2017-02-18] MEDS: MECLIZINE 12.5 MG TAB PO PRN (10:05)
[2017-02-18] MEDS: HYDROmorphONE 2 MG TAB PO PRN (10:07)
--- NOTE | 2017-02-18 12:10 | CONS ---
Date/Time of Note Date/Time of Note DATE: 02/18/17 TIME: 12:09 Consult Date/Type/Reason Admit Date/Time Feb 11, 2017 at 17:51 Type of Consultation: nephrology Subjective Remains motivated Objective pulm-cta abd-soft min assist ambulation Vital Signs Date Time Temp Pulse Resp B/P Pulse Ox O2 Delivery O2 Flow Rate FiO2 02/18/17 07:30 98.0 66 18 100/62 96 02/17/17 20:00 Room Air Intake and Output 02/17/17 02/17/17 02/18/17 15:00 23:00 07:00 Intake Total 820 ml 360 ml Output Total 1 ml Balance 819 ml 360 ml Results/Medications Medications Current Medications Amlodipine Besylate (Norvasc) 5 mg HS PO Last administered on 02/17/17 20:43; Admin Dose 5 MG; Start 02/11/17 at 21:00 Atorvastatin Calcium (Lipitor) 20 mg DAILY@21 PO Last administered on 20:42; Admin Dose 20 MG; Start 02/11/17 at 21:00 Enoxaparin Sodium (Lovenox) 70 mg Q12 SC Last administered on 02/18/17 08:52; Admin Dose 70 MG; Start 02/11/17 at 21:00 Diphenhydramine HCl (Benadryl) 25 mg Q6H PRN IV ALLERGIC REACTION Last administered on 02/17/17 23:36; Admin Dose 25 MG; Start 02/11/17 at 20:00 Hydromorphone HCl (Dilaudid) 0.5 mg Q4H PRN IV PAIN 4-6 (MODERATE) Last administered on 02/16/17 13:30; Admin Dose 0.5 MG; Start 02/11/17 at 20:00 Lorazepam (Ativan) 0.5 mg Q6H PRN IV ANXIETY; Start 02/11/17 at 20:00 Phenol (Chloraseptic Throat [place]) 1 spray PRN PRN [place] SORE THROAT; Start at 20:00 IV Flush (NS 3 ml) 3 ml Q8 IV Last administered on 02/18/17 06:44; Admin Dose 3 ML; Start 02/11/17 at 22:00 Docusate Sodium (Colace) 100 mg BID PO Last administered on 02/18/17 08:49; Admin Dose 100 MG; Start 02/11/17 at 21:00 Senna (Senokot) 1 tab HS PO Last administered on 02/17/17 20:42; Admin Dose 1 TAB; Start 02/11/17 at 21:00 Acetaminophen (Tylenol Tab) 650 mg Q4H PRN PO PAIN Last administered on 21:13; Admin Dose 650 MG; Start 02/11/17 at 20:00 Bisacodyl (Dulcolax Supp) 10 mg DAILY PRN [place] CONSTIPATION; Start 02/11/17 at 20 :00 Magnesium Hydroxide (Milk Of Mag) 30 ml BID PRN PO CONSTIPATION; Start at 20:00 Lactulose (Enulose) 20 gm DAILY PRN PO CONSTIPATION; Start 02/11/17 at 20:00 Nystatin (Nystatin Powder) 1 applic BID TOP Last administered on 02/18/17 08: 52; Admin Dose 1 APPLIC; Start 02/13/17 at 21:00 Hydromorphone HCl (Dilaudid) 2 mg Q4H PRN PO PAIN Last administered on 10:07; Admin Dose 2 MG; Start 02/13/17 at 15:00 Pantoprazole (Protonix Tab) 40 mg DAILY@06 PO Last administered on 02/18/17 06 :44; Admin Dose 40 MG; Start 02/14/17 at 06:00 Tramadol HCl (Ultram) 50 mg Q6 PRN PO PAIN LEVEL 1-5; Start 02/15/17 at 14:00 Meclizine HCl (Antivert) 12.5 mg TID PRN PO dizziness Last administered on 02/18 10:05; Admin Dose 12.5 MG; Start 02/15/17 at 19:00 Assessment/Plan Additional Assessment/Plan Rehab- Posterior L frontal infarct CVA Continue rehab treatment plan SLE HTN Dysphagia- improving LARISSA WILLS MD Feb 18, 2017 12:10
--- NOTE | 2017-02-18 17:34 | PN ---
Date/Time of Note Date/Time of Note DATE: 02/18/17 TIME: 17:31 Assessment/Plan VTE Prophylaxis VTE Prophylaxis Intervention: ambulation Lines/Catheters IV [facility]from [facility] Saline Lock Urinary Cath still in place: No Assessment/Plan Chief Complaint/Hosp Course 1. S/p stroke 2. expressive aphasia, better 3. Hypertension stable 4. History of lupus Problems: Assessment/Plan 1.Continue rehabilitation 2. Continue speech and occupational therapy Subjective 24 Hr Interval Summary Subjective hx not possible: other (incoherent, and short words) Exam/Review of Systems Vital Signs Vitals Vital Signs Date Time Temp Pulse Resp B/P Pulse Ox O2 Delivery O2 Flow Rate FiO2 02/18/17 07:30 98.0 66 18 100/62 96 02/17/17 20:00 Room Air Intake and Output 02/17/17 02/17/17 02/18/17 15:00 23:00 07:00 Intake Total 820 ml 360 ml Output Total 1 ml Balance 819 ml 360 ml Exam Constitutional: alert, oriented Psych: no complaints Head: normocephalic Eyes: nl conjunctiva ENMT: nl external ears & nose Neck: supple Respiratory: clear to auscultation Cardiovascular: regular rate and rhythm Gastrointestinal: soft Medications Medications Current Medications Amlodipine Besylate (Norvasc) 5 mg HS PO Last administered on 02/17/17 20:43; Admin Dose 5 MG; Start 02/11/17 at 21:00 Atorvastatin Calcium (Lipitor) 20 mg DAILY@21 PO Last administered on 20:42; Admin Dose 20 MG; Start 02/11/17 at 21:00 Enoxaparin Sodium (Lovenox) 70 mg Q12 SC Last administered on 02/18/17 08:52; Admin Dose 70 MG; Start 02/11/17 at 21:00 Phenol (Chloraseptic Throat [place]) 1 spray PRN PRN [place] SORE THROAT; Start at 20:00 Docusate Sodium (Colace) 100 mg BID PO Last administered on 02/18/17 08:49; Admin Dose 100 MG; Start 02/11/17 at 21:00 Senna (Senokot) 1 tab HS PO Last administered on 02/17/17 20:42; Admin Dose 1 TAB; Start 02/11/17 at 21:00 Acetaminophen (Tylenol Tab) 650 mg Q4H PRN PO PAIN Last administered on 21:13; Admin Dose 650 MG; Start 02/11/17 at 20:00 Bisacodyl (Dulcolax Supp) 10 mg DAILY PRN [place] CONSTIPATION; Start 02/11/17 at 20 :00 Magnesium Hydroxide (Milk Of Mag) 30 ml BID PRN PO CONSTIPATION; Start at 20:00 Lactulose (Enulose) 20 gm DAILY PRN PO CONSTIPATION; Start 02/11/17 at 20:00 Nystatin (Nystatin Powder) 1 applic BID TOP Last administered on 02/18/17 08: 52; Admin Dose 1 APPLIC; Start 02/13/17 at 21:00 Hydromorphone HCl (Dilaudid) 2 mg Q4H PRN PO PAIN Last administered on 10:07; Admin Dose 2 MG; Start 02/13/17 at 15:00 Pantoprazole (Protonix Tab) 40 mg DAILY@06 PO Last administered on 02/18/17 06 :44; Admin Dose 40 MG; Start 02/14/17 at 06:00 Tramadol HCl (Ultram) 50 mg Q6 PRN PO PAIN LEVEL 1-5; Start 02/15/17 at 14:00 Meclizine HCl (Antivert) 12.5 mg TID PRN PO dizziness Last administered on 02/18 10:05; Admin Dose 12.5 MG; Start 02/15/17 at 19:00 Diphenhydramine HCl (Benadryl) 25 mg Q6H PRN PO [place]; Start 02/18/17 at 16: 00 SUSIE GRAVES Feb 18, 2017 17:34
[2017-02-18 20:33] VITALS: BP 110/75; RESP 18
[2017-02-18] MEDS: AMLODIPINE 5 MG TAB PO SCH (21:46)
[2017-02-18] MEDS: ATORVASTATIN 20 MG TAB PO SCH (21:46)
[2017-02-18] MEDS: SENNA TAB PO SCH (21:46)
[2017-02-18] MEDS: ACETAMINOPHEN 325 MG TAB PO PRN (23:17)
[2017-02-19] MEDS: PANTOPRAZOLE (EC) 40 MG TAB PO SCH (06:18)
--- NOTE | 2017-02-19 08:29 | CONS ---
Date/Time of Note Date/Time of Note DATE: 02/19/17 TIME: 08:29 Consult Date/Type/Reason Admit Date/Time Feb 11, 2017 at 17:51 Type of Consultation: nephrology Subjective Motivated, improving verbal output Objective pulm-cta abd-soft min assist Vital Signs Date Time Temp Pulse Resp B/P Pulse Ox O2 Delivery O2 Flow Rate FiO2 02/18/17 20:33 98.0 79 18 110/75 96 02/17/17 20:00 Room Air Intake and Output 02/18/17 02/18/17 02/19/17 15:00 23:00 07:00 Intake Total 420 ml Balance 420 ml Results/Medications Medications Current Medications Amlodipine Besylate (Norvasc) 5 mg HS PO Last administered on 02/18/17 21:46; Admin Dose 5 MG; Start 02/11/17 at 21:00 Atorvastatin Calcium (Lipitor) 20 mg DAILY@21 PO Last administered on 21:46; Admin Dose 20 MG; Start 02/11/17 at 21:00 Enoxaparin Sodium (Lovenox) 70 mg Q12 SC Last administered on 02/18/17 21:49; Admin Dose 70 MG; Start 02/11/17 at 21:00 Phenol (Chloraseptic Throat [place]) 1 spray PRN PRN [place] SORE THROAT; Start at 20:00 Docusate Sodium (Colace) 100 mg BID PO Last administered on 02/18/17 21:46; Admin Dose 100 MG; Start 02/11/17 at 21:00 Senna (Senokot) 1 tab HS PO Last administered on 02/18/17 21:46; Admin Dose 1 TAB; Start 02/11/17 at 21:00 Acetaminophen (Tylenol Tab) 650 mg Q4H PRN PO PAIN Last administered on 23:17; Admin Dose 650 MG; Start 02/11/17 at 20:00 Bisacodyl (Dulcolax Supp) 10 mg DAILY PRN [place] CONSTIPATION; Start 02/11/17 at 20 :00 Magnesium Hydroxide (Milk Of Mag) 30 ml BID PRN [place] CONSTIPATION; Start at 20:00 Lactulose (Enulose) 20 gm DAILY PRN PO CONSTIPATION; Start 02/11/17 at 20:00 Nystatin (Nystatin Powder) 1 applic BID TOP Last administered on 02/18/17 21: 50; Admin Dose 1 APPLIC; Start 02/13/17 at 21:00 Hydromorphone HCl (Dilaudid) 2 mg Q4H PRN PO PAIN Last administered on 10:07; Admin Dose 2 MG; Start 02/13/17 at 15:00 Pantoprazole (Protonix Tab) 40 mg DAILY@06 PO Last administered on 02/19/17 06: 18; Admin Dose 40 MG; Start 02/14/17 at 06:00 Tramadol HCl (Ultram) 50 mg Q6 PRN PO PAIN LEVEL 1-5; Start 02/15/17 at 14:00 Meclizine HCl (Antivert) 12.5 mg TID PRN PO dizziness Last administered on 02/18 10:05; Admin Dose 12.5 MG; Start 02/15/17 at 19:00 Diphenhydramine HCl (Benadryl) 25 mg Q6H PRN PO ITCHING; Start 02/18/17 at 16: 00 Assessment/Plan Additional Assessment/Plan Rehab- Posterior L frontal infardt CVA Excellent progress, continue treatment plan SLE HTn Dysphagia- steady progress LARISSA WILLS MD Feb 19, 2017 08:29
[2017-02-19] MEDS: DOCUSATE SODIUM 100 MG CAP PO SCH ×2 (09:07→21:00)
[2017-02-19] MEDS: ASPIRIN (EC) 81 MG TAB PO SCH (09:07)
[2017-02-19] MEDS: MECLIZINE 12.5 MG TAB PO PRN (09:09)
[2017-02-19] MEDS: ENOXAPARIN 80 MG/0.8 ML SYG SC SCH ×2 (09:11→22:03)
[2017-02-19] MEDS: NYSTATIN 30 GM POWDER BTL TOP SCH ×2 (09:12→21:00)
[2017-02-19 12:18] VITALS: BP 91/59; RESP 14
--- NOTE | 2017-02-19 15:51 | PN ---
Date/Time of Note Date/Time of Note DATE: 02/19/17 TIME: 15:50 Assessment/Plan VTE Prophylaxis VTE Prophylaxis Intervention: ambulation Lines/Catheters IV [facility] Type (from [email or web address] Saline Lock Urinary Cath still in place: No Assessment/Plan Chief Complaint/Hosp Course 1. S/p stroke 2. expressive aphasia, better 3. Hypertension stable 4. History of lupus Problems: Assessment/Plan 1. Continue speech and occupational therapy Subjective 24 Hr Interval Summary Constitutional: improved, other (dysarthria) Gastrointestinal: no complaints Exam/Review of Systems Vital Signs Vitals Vital Signs Date Time Temp Pulse Resp B/P Pulse Ox O2 Delivery O2 Flow Rate FiO2 02/19/17 12:18 98.3 82 14 91/59 98 02/17/17 20:00 Room Air Intake and Output 02/18/17 02/18/17 02/19/17 15:00 23:00 07:00 Intake Total 420 ml Balance 420 ml Exam Constitutional: alert, oriented Eyes: nl conjunctiva Neck: supple Respiratory: clear to auscultation Cardiovascular: regular rate and rhythm Medications Medications Current Medications Amlodipine Besylate (Norvasc) 5 mg HS PO Last administered on 02/18/17 21:46; Admin Dose 5 MG; Start 02/11/17 at 21:00 Atorvastatin Calcium (Lipitor) 20 mg DAILY@21 PO Last administered on 21:46; Admin Dose 20 MG; Start 02/11/17 at 21:00 Enoxaparin Sodium (Lovenox) 70 mg Q12 SC Last administered on 02/19/17 09:11; Admin Dose 70 MG; Start 02/11/17 at 21:00 Phenol (Chloraseptic Throat [place]) 1 spray PRN PRN [place] SORE THROAT; Start at 20:00 Docusate Sodium (Colace) 100 mg BID PO Last administered on 02/19/17 09:07; Admin Dose 100 MG; Start 02/11/17 at 21:00 Senna (Senokot) 1 tab HS PO Last administered on 02/18/17 21:46; Admin Dose 1 TAB; Start 02/11/17 at 21:00 Acetaminophen (Tylenol Tab) 650 mg Q4H PRN PO PAIN Last administered on 23:17; Admin Dose 650 MG; Start 02/11/17 at 20:00 Bisacodyl (Dulcolax Supp) 10 mg DAILY PRN [place] CONSTIPATION; Start 02/11/17 at 20 :00 Magnesium Hydroxide (Milk Of Mag) 30 ml BID PRN PO CONSTIPATION; Start at 20:00 Lactulose (Enulose) 20 gm DAILY PRN PO CONSTIPATION; Start 02/11/17 at 20:00 Nystatin (Nystatin Powder) 1 applic BID TOP Last administered on 02/19/17 09:12 ; Admin Dose 1 APPLIC; Start 02/13/17 at 21:00 Hydromorphone HCl (Dilaudid) 2 mg Q4H PRN PO PAIN Last administered on 10:07; Admin Dose 2 MG; Start 02/13/17 at 15:00 Pantoprazole (Protonix Tab) 40 mg DAILY@06 PO Last administered on 02/19/17 06: 18; Admin Dose 40 MG; Start 02/14/17 at 06:00 Tramadol HCl (Ultram) 50 mg Q6 PRN PO PAIN LEVEL 1-5; Start 02/15/17 at 14:00 Meclizine HCl (Antivert) 12.5 mg TID PRN PO dizziness Last administered on 09:09; Admin Dose 12.5 MG; Start 02/15/17 at 19:00 Diphenhydramine HCl (Benadryl) 25 mg Q6H PRN PO ITCHING; Start 02/18/17 at 16: 00 SUSIE GRAVES Feb 19, 2017 15:51
[2017-02-19 17:28] VITALS: BP 99/55; PULSE 78; RESP 18
[2017-02-19] MEDS: ACETAMINOPHEN 325 MG TAB PO PRN (17:29)
[2017-02-19 20:47] VITALS: BP 105/59; RESP 18
[2017-02-19] MEDS: AMLODIPINE 5 MG TAB PO SCH (21:00)
[2017-02-19] MEDS: SENNA TAB PO SCH (21:00)
[2017-02-19] MEDS: ATORVASTATIN 20 MG TAB PO SCH (21:02)
[2017-02-19] MEDS: HYDROmorphONE 2 MG TAB PO PRN (22:06)
[2017-02-20] MEDS: PANTOPRAZOLE (EC) 40 MG TAB PO SCH (06:46)
[2017-02-20 07:30] VITALS: BP 97/55; RESP 18
[2017-02-20] MEDS: ASPIRIN (EC) 81 MG TAB PO SCH (08:24)
[2017-02-20] MEDS: DOCUSATE SODIUM 100 MG CAP PO SCH ×2 (08:24→20:45)
[2017-02-20] MEDS: ENOXAPARIN 80 MG/0.8 ML SYG SC SCH ×2 (08:27→20:51)
[2017-02-20] MEDS: NYSTATIN 30 GM POWDER BTL TOP SCH ×2 (08:29→20:52)
[2017-02-20] MEDS: MECLIZINE 12.5 MG TAB PO PRN (10:31)
--- NOTE | 2017-02-20 17:24 | CONS ---
Date/Time of Note Date/Time of Note DATE: 02/20/17 TIME: 17:23 Assessment/Plan Assessment/Plan Chief Complaint/Hosp Course HTN HX LUPUS CVA W LEFT SIDE WEAKNESS HX MIGRAINE better dizziness plan pt ot antivert prn Problems: Consultation Date/Type/Reason Admit Date/Time Feb 11, 2017 at 17:51 Type of Consultation: nephrology 24 HR Interval Summary Constitutional: no complaints Exam/Review of Systems Vital Signs Vitals Vital Signs Date Time Temp Pulse Resp B/P Pulse Ox O2 Delivery O2 Flow Rate FiO2 02/20/17 07:30 98.3 74 18 97/55 97 02/19/17 17:28 Room Air Intake and Output 02/19/17 02/19/17 02/20/17 15:00 23:00 07:00 Intake Total 450 ml Balance 450 ml Exam Neck: supple Respiratory: clear to auscultation Cardiovascular: regular rate and rhythm Gastrointestinal: soft Medications Medications Current Medications Amlodipine Besylate (Norvasc) 5 mg HS PO Last administered on 02/18/17 21:46; Admin Dose 5 MG; Start 02/11/17 at 21:00 Atorvastatin Calcium (Lipitor) 20 mg DAILY@21 PO Last administered on 02/19/17 21:02; Admin Dose 20 MG; Start 02/11/17 at 21:00 Enoxaparin Sodium (Lovenox) 70 mg Q12 SC Last administered on 02/20/17 08:27; Admin Dose 70 MG; Start 02/11/17 at 21:00 Phenol (Chloraseptic Throat [place]) 1 spray PRN PRN [place] SORE THROAT; Start at 20:00 Docusate Sodium (Colace) 100 mg BID PO Last administered on 02/20/17 08:24; Admin Dose 100 MG; Start 02/11/17 at 21:00 Senna (Senokot) 1 tab HS PO Last administered on 02/18/17 21:46; Admin Dose 1 TAB; Start 02/11/17 at 21:00 Acetaminophen (Tylenol Tab) 650 mg Q4H PRN PO PAIN Last administered on 17:29; Admin Dose 650 MG; Start 02/11/17 at 20:00 Bisacodyl (Dulcolax Supp) 10 mg DAILY PRN [place] CONSTIPATION; Start 02/11/17 at 20 :00 Magnesium Hydroxide (Milk Of Mag) 30 ml BID PRN PO CONSTIPATION; Start at 20:00 Lactulose (Enulose) 20 gm DAILY PRN PO CONSTIPATION; Start 02/11/17 at 20:00 Nystatin (Nystatin Powder) 1 applic BID TOP Last administered on 02/20/17 08:29 ; Admin Dose 1 APPLIC; Start 02/13/17 at 21:00 Hydromorphone HCl (Dilaudid) 2 mg Q4H PRN PO PAIN Last administered on 22:06; Admin Dose 2 MG; Start 02/13/17 at 15:00 Pantoprazole (Protonix Tab) 40 mg DAILY@06 PO Last administered on 02/20/17 06: 46; Admin Dose 40 MG; Start 02/14/17 at 06:00 Tramadol HCl (Ultram) 50 mg Q6 PRN PO PAIN LEVEL 1-5; Start 02/15/17 at 14:00 Meclizine HCl (Antivert) 12.5 mg TID PRN PO dizziness Last administered on 10:31; Admin Dose 12.5 MG; Start 02/15/17 at 19:00 Diphenhydramine HCl (Benadryl) 25 mg Q6H PRN PO ITCHING; Start 02/18/17 at 16: 00 LINDSAY WEISS MD Feb 20, 2017 17:24
[2017-02-20 20:20] VITALS: BP 103/64; RESP 20
[2017-02-20] MEDS: SENNA TAB PO SCH (20:45)
[2017-02-20] MEDS: ATORVASTATIN 20 MG TAB PO SCH (20:45)
[2017-02-20] MEDS: AMLODIPINE 5 MG TAB PO SCH (20:52)
[2017-02-20] MEDS: HYDROmorphONE 2 MG TAB PO PRN (22:32)
[2017-02-21] MEDS: PANTOPRAZOLE (EC) 40 MG TAB PO SCH (06:23)
[2017-02-21 07:30] VITALS: BP 87/56; RESP 18
[2017-02-21] MEDS: DOCUSATE SODIUM 100 MG CAP PO SCH ×2 (08:19→21:20)
[2017-02-21] MEDS: ASPIRIN (EC) 81 MG TAB PO SCH (08:19)
[2017-02-21] MEDS: MECLIZINE 12.5 MG TAB PO PRN (08:19)
[2017-02-21] MEDS: ENOXAPARIN 80 MG/0.8 ML SYG SC SCH ×2 (08:23→21:23)
[2017-02-21] MEDS: NYSTATIN 30 GM POWDER BTL TOP SCH ×2 (09:00→21:24)
[2017-02-21] MEDS: HYDROmorphONE 2 MG TAB PO PRN ×2 (10:05→21:20)
--- NOTE | 2017-02-21 12:41 | CONS ---
Date/Time of Note Date/Time of Note DATE: 02/21/17 TIME: 12:39 Consult Date/Type/Reason Admit Date/Time Feb 11, 2017 at 17:51 Type of Consultation: nephrology Subjective Family conference held with brother Objective Vital Signs Date Time Temp Pulse Resp B/P Pulse Ox O2 Delivery O2 Flow Rate FiO2 02/21/17 07:30 98.3 74 18 87/56 98 02/19/17 17:28 Room Air Intake and Output 02/20/17 02/20/17 02/21/17 15:00 23:00 07:00 Intake Total 1620 ml 500 ml Balance 1620 ml 500 ml INTERDISCIPLINARY TEAM CONFERENCE BOWEL- Cont BLADDER-Cont SKIN- intact OT- DRESSING-cga/min BATHING-cga/min TOILETING-min PT- BED MOBILITY-cga TRANSFERS-cga AMBULATION-cga 120 feet SPEECH- COGNITION-mod DYPHAGIA-mech soft A/P- Interdisciplinary team conference held today. Please see interdisciplinary sheet. Working toward d.c. on 03/03 with post discharge follow up of physical therapy, occupational therapy. Results/Medications Medications Current Medications Amlodipine Besylate (Norvasc) 5 mg HS PO Last administered on 02/18/17 21:46; Admin Dose 5 MG; Start 02/11/17 at 21:00 Atorvastatin Calcium (Lipitor) 20 mg DAILY@21 PO Last administered on 02/20/17 20:45; Admin Dose 20 MG; Start 02/11/17 at 21:00 Enoxaparin Sodium (Lovenox) 70 mg Q12 SC Last administered on 02/21/17 08:23; Admin Dose 70 MG; Start 02/11/17 at 21:00 Phenol (Chloraseptic Throat [place]) 1 spray PRN PRN [place] SORE THROAT; Start at 20:00 Docusate Sodium (Colace) 100 mg BID PO Last administered on 02/21/17 08:19; Admin Dose 100 MG; Start 02/11/17 at 21:00 Senna (Senokot) 1 tab HS PO Last administered on 02/20/17 20:45; Admin Dose 1 TAB; Start 02/11/17 at 21:00 Acetaminophen (Tylenol Tab) 650 mg Q4H PRN PO PAIN Last administered on 17:29; Admin Dose 650 MG; Start 02/11/17 at 20:00 Bisacodyl (Dulcolax Supp) 10 mg DAILY PRN [place] CONSTIPATION; Start 02/11/17 at 20 :00 Magnesium Hydroxide (Milk Of Mag) 30 ml BID PRN PO CONSTIPATION; Start at 20:00 Lactulose (Enulose) 20 gm DAILY PRN PO CONSTIPATION; Start 02/11/17 at 20:00 Nystatin (Nystatin Powder) 1 applic BID TOP Last administered on 02/20/17 08:29 ; Admin Dose 1 APPLIC; Start 02/13/17 at 21:00 Hydromorphone HCl (Dilaudid) 2 mg Q4H PRN PO PAIN Last administered on 10:05; Admin Dose 2 MG; Start 02/13/17 at 15:00 Pantoprazole (Protonix Tab) 40 mg DAILY@06 PO Last administered on 02/21/17 06: 23; Admin Dose 40 MG; Start 02/14/17 at 06:00 Tramadol HCl (Ultram) 50 mg Q6 PRN PO PAIN LEVEL 1-5; Start 02/15/17 at 14:00 Meclizine HCl (Antivert) 12.5 mg TID PRN PO dizziness Last administered on 08:19; Admin Dose 12.5 MG; Start 02/15/17 at 19:00 Diphenhydramine HCl (Benadryl) 25 mg Q6H PRN PO ITCHING; Start 02/18/17 at 16: 00 Baclofen (Lioresal) 10 mg BID PO ; Start 02/21/17 at 21:00 LARISSA WILLS MD Feb 21, 2017 12:40
--- NOTE | 2017-02-21 19:17 | PN ---
Date/Time of Note Date/Time of Note DATE: 02/21/17 TIME: 19:16 Assessment/Plan VTE Prophylaxis VTE Prophylaxis Intervention: other Lines/Catheters IV [facility] Type (from [facility] Saline Lock Urinary Cath still in place: No Assessment/Plan Chief Complaint/Hosp Course HTN HX LUPUS CVA W LEFT SIDE WEAKNESS HX MIGRAINE better dizziness plan pt ot antivert prn dc bp meds Problems: Subjective 24 Hr Interval Summary Subjective hx not possible: other (walking better) Exam/Review of Systems Vital Signs Vitals Vital Signs Date Time Temp Pulse Resp B/P Pulse Ox O2 Delivery O2 Flow Rate FiO2 02/21/17 07:30 98.3 74 18 87/56 98 02/19/17 17:28 Room Air Intake and Output 02/20/17 02/20/17 02/21/17 15:00 23:00 07:00 Intake Total 1620 ml 500 ml Balance 1620 ml 500 ml Exam Respiratory: clear to auscultation Cardiovascular: regular rate and rhythm Gastrointestinal: soft Musculoskeletal: nl extremities to inspection Extremities: normal pulses Medications Medications Current Medications Amlodipine Besylate (Norvasc) 5 mg HS PO Last administered on 02/18/17 21:46; Admin Dose 5 MG; Start 02/11/17 at 21:00 Atorvastatin Calcium (Lipitor) 20 mg DAILY@21 PO Last administered on 02/20/17 20:45; Admin Dose 20 MG; Start 02/11/17 at 21:00 Enoxaparin Sodium (Lovenox) 70 mg Q12 SC Last administered on 02/21/17 08:23; Admin Dose 70 MG; Start 02/11/17 at 21:00 Phenol (Chloraseptic Throat [place]) 1 spray PRN PRN [place] SORE THROAT; Start at 20:00 Docusate Sodium (Colace) 100 mg BID PO Last administered on 02/21/17 08:19; Admin Dose 100 MG; Start 02/11/17 at 21:00 Senna (Senokot) 1 tab HS PO Last administered on 02/20/17 20:45; Admin Dose 1 TAB; Start 02/11/17 at 21:00 Acetaminophen (Tylenol Tab) 650 mg Q4H PRN PO PAIN Last administered on 17:29; Admin Dose 650 MG; Start 02/11/17 at 20:00 Bisacodyl (Dulcolax Supp) 10 mg DAILY PRN [place] CONSTIPATION; Start 02/11/17 at 20 :00 Magnesium Hydroxide (Milk Of Mag) 30 ml BID PRN PO CONSTIPATION; Start at 20:00 Lactulose (Enulose) 20 gm DAILY PRN PO CONSTIPATION; Start 02/11/17 at 20:00 Nystatin (Nystatin Powder) 1 applic BID TOP Last administered on 02/20/17 08:29 ; Admin Dose 1 APPLIC; Start 02/13/17 at 21:00 Hydromorphone HCl (Dilaudid) 2 mg Q4H PRN PO PAIN Last administered on 10:05; Admin Dose 2 MG; Start 02/13/17 at 15:00 Pantoprazole (Protonix Tab) 40 mg DAILY@06 PO Last administered on 02/21/17 06: 23; Admin Dose 40 MG; Start 02/14/17 at 06:00 Tramadol HCl (Ultram) 50 mg Q6 PRN PO PAIN LEVEL 1-5; Start 02/15/17 at 14:00 Meclizine HCl (Antivert) 12.5 mg TID PRN PO dizziness Last administered on 08:19; Admin Dose 12.5 MG; Start 02/15/17 at 19:00 Diphenhydramine HCl (Benadryl) 25 mg Q6H PRN PO ITCHING; Start 02/18/17 at 16: 00 Baclofen (Lioresal) 10 mg BID PO ; Start 02/21/17 at 21:00 LINDSAY WEISS MD Feb 21, 2017 19:17
[2017-02-21 20:13] VITALS: BP 107/68; RESP 18
[2017-02-21] MEDS ORDERED: BACLOFEN 10 MG TAB PO SCH (21:00)
[2017-02-21] MEDS: ATORVASTATIN 20 MG TAB PO SCH (21:19)
[2017-02-21] MEDS: BACLOFEN 10 MG TAB PO SCH (21:20)
[2017-02-21] MEDS: SENNA TAB PO SCH (21:20)
[2017-02-22] MEDS: PANTOPRAZOLE (EC) 40 MG TAB PO SCH (05:58)
[2017-02-22 08:00] VITALS: BP 106/59; RESP 18
[2017-02-22] MEDS: DOCUSATE SODIUM 100 MG CAP PO SCH ×2 (08:48→21:05)
[2017-02-22] MEDS: ASPIRIN (EC) 81 MG TAB PO SCH (08:48)
[2017-02-22] MEDS: BACLOFEN 10 MG TAB PO SCH ×2 (08:49→21:05)
[2017-02-22] MEDS: NYSTATIN 30 GM POWDER BTL TOP SCH ×2 (08:59→21:07)
[2017-02-22] MEDS: ENOXAPARIN 80 MG/0.8 ML SYG SC SCH ×2 (08:59→21:06)
[2017-02-22 11:49] LABS: ADD UMIC YES; URINE BILIRUBIN (Dip) NEGATIVE (NEGATIVE); URINE BLOOD (Dip) NEGATIVE (NEGATIVE); URINE COLOR LT. YELLOW (YELLOW); URINE GLUCOSE (Dip) NEGATIVE (NEGATIVE); URINE KETONES (Dip) NEGATIVE (NEGATIVE); URINE LEUKOCYTE ESTERASE (Dip) TRACE (NEGATIVE); URINE NITRITE (Dip) NEGATIVE (NEGATIVE); URINE TOTAL PROTEIN (Dip) NEGATIVE (NEGATIVE); URINE UROBILINOGEN (Dip) 0.2 E.U./dL (0.1-1.0)
--- NOTE | 2017-02-22 12:13 | CONS ---
Date/Time of Note Date/Time of Note DATE: 02/22/17 TIME: 12:12 Consult Date/Type/Reason Admit Date/Time Feb 11, 2017 at 17:51 Type of Consultation: nephrology Subjective Improving speech in both [place] and [place] Objective pulm-cta abd-soft,nt min assist ambulation Vital Signs Date Time Temp Pulse Resp B/P Pulse Ox O2 Delivery O2 Flow Rate FiO2 02/22/17 08:00 98.3 70 18 106/59 98 02/19/17 17:28 Room Air Intake and Output 02/21/17 02/21/17 02/22/17 15:00 23:00 07:00 Intake Total 960 ml 1300 ml Balance 960 ml 1300 ml Results/Medications Medications Current Medications Atorvastatin Calcium (Lipitor) 20 mg DAILY@21 PO Last administered on 02/21/17 21:19; Admin Dose 20 MG; Start 02/11/17 at 21:00 Enoxaparin Sodium (Lovenox) 70 mg Q12 SC Last administered on 02/22/17 08:59; Admin Dose 70 MG; Start 02/11/17 at 21:00 Phenol (Chloraseptic Throat [place]) 1 spray PRN PRN [place] SORE THROAT; Start at 20:00 Docusate Sodium (Colace) 100 mg BID PO Last administered on 02/22/17 08:48; Admin Dose 100 MG; Start 02/11/17 at 21:00 Senna (Senokot) 1 tab HS PO Last administered on 02/21/17 21:20; Admin Dose 1 TAB; Start 02/11/17 at 21:00 Acetaminophen (Tylenol Tab) 650 mg Q4H PRN PO PAIN Last administered on 17:29; Admin Dose 650 MG; Start 02/11/17 at 20:00 Bisacodyl (Dulcolax Supp) 10 mg DAILY PRN [place] CONSTIPATION; Start 02/11/17 at 20 :00 Magnesium Hydroxide (Milk Of Mag) 30 ml BID PRN PO CONSTIPATION; Start at 20:00 Lactulose (Enulose) 20 gm DAILY PRN PO CONSTIPATION; Start 02/11/17 at 20:00 Nystatin (Nystatin Powder) 1 applic BID TOP Last administered on 02/22/17 08:59 ; Admin Dose 1 APPLIC; Start 02/13/17 at 21:00 Hydromorphone HCl (Dilaudid) 2 mg Q4H PRN PO PAIN Last administered on 21:20; Admin Dose 2 MG; Start 02/13/17 at 15:00 Pantoprazole (Protonix Tab) 40 mg DAILY@06 PO Last administered on 02/22/17 05: 58; Admin Dose 40 MG; Start 02/14/17 at 06:00 Tramadol HCl (Ultram) 50 mg Q6 PRN PO PAIN LEVEL 1-5; Start 02/15/17 at 14:00 Meclizine HCl (Antivert) 12.5 mg TID PRN PO dizziness Last administered on 08:19; Admin Dose 12.5 MG; Start 02/15/17 at 19:00 Diphenhydramine HCl (Benadryl) 25 mg Q6H PRN PO ITCHING; Start 02/18/17 at 16: 00 Baclofen (Lioresal) 10 mg BID PO Last administered on 02/22/17 08:49; Admin Dose 10 MG; Start 02/21/17 at 21:00 Assessment/Plan Additional Assessment/Plan Rehab- Posterior L frontal infardt CVA continue rehab treatment plan SLE HTn Dysphagia- steady progress LARISSA WILLS MD Feb 22, 2017 12:13
[2017-02-22 12:28] LABS: SQUAMOUS EPITHELIAL CELL,UR FEW; URINE RBCS NONE SEEN /HPF (0)
[2017-02-22] MEDS: MECLIZINE 12.5 MG TAB PO PRN (12:42)
[2017-02-22 20:00] VITALS: BP 106/62; RESP 18
[2017-02-22] MEDS: SENNA TAB PO SCH (21:05)
[2017-02-22] MEDS: ATORVASTATIN 20 MG TAB PO SCH (21:05)
--- NOTE | 2017-02-22 21:29 | PN ---
Date/Time of Note Date/Time of Note DATE: 02/22/17 TIME: 21:28 Assessment/Plan VTE Prophylaxis VTE Prophylaxis Intervention: other Lines/Catheters [facility] Saline Lock Urinary Cath still in place: No Assessment/Plan Chief Complaint/Hosp Course HTN HX LUPUS CVA W LEFT SIDE WEAKNESS HX MIGRAINE better dizziness plan pt ot antivert prn PT/OT Problems: Subjective 24 Hr Interval Summary Gastrointestinal: no complaints Genitourinary: no complaints Exam/Review of Systems Vital Signs Vitals Vital Signs Date Time Temp Pulse Resp B/P Pulse Ox O2 Delivery O2 Flow Rate FiO2 02/22/17 20:00 98.4 85 18 106/62 95 02/19/17 17:28 Room Air Intake and Output 02/21/17 02/21/17 02/22/17 15:00 23:00 07:00 Intake Total 960 ml 1300 ml Balance 960 ml 1300 ml Exam Respiratory: clear to auscultation Cardiovascular: regular rate and rhythm Gastrointestinal: soft Musculoskeletal: nl extremities to inspection Results Results 24 hrs Laboratory Tests Test 02/22/17 10:10 Urine Color LT. YELLOW Urine Clarity CLEAR Urine pH 5.5 Urine Specific [place] <=1.005 L Urine Ketones NEGATIVE Urine Nitrite NEGATIVE Urine Bilirubin NEGATIVE Urine Urobilinogen 0.2 E.U./dL Urine Leukocyte Esterase TRACE H Urine Microscopic RBC NONE SEEN Urine Microscopic WBC 0-2 Urine Squamous Epithelial Cells FEW Urine Hemoglobin NEGATIVE Urine Glucose NEGATIVE Urine Total Protein NEGATIVE Medications Medications Current Medications Atorvastatin Calcium (Lipitor) 20 mg DAILY@21 PO Last administered on 02/22/17 21:05; Admin Dose 20 MG; Start 02/11/17 at 21:00 Enoxaparin Sodium (Lovenox) 70 mg Q12 SC Last administered on 02/22/17 21:06; Admin Dose 70 MG; Start 02/11/17 at 21:00 Phenol (Chloraseptic Throat [place]) 1 spray PRN PRN [place] SORE THROAT; Start at 20:00 Docusate Sodium (Colace) 100 mg BID PO Last administered on 02/22/17 21:05; Admin Dose 100 MG; Start 02/11/17 at 21:00 Senna (Senokot) 1 tab HS PO Last administered on 02/22/17 21:05; Admin Dose 1 TAB; Start 02/11/17 at 21:00 Acetaminophen (Tylenol Tab) 650 mg Q4H PRN PO PAIN Last administered on 17:29; Admin Dose 650 MG; Start 02/11/17 at 20:00 Bisacodyl (Dulcolax Supp) 10 mg DAILY PRN [place] CONSTIPATION; Start 02/11/17 at 20 :00 Magnesium Hydroxide (Milk Of Mag) 30 ml BID PRN PO CONSTIPATION; Start at 20:00 Lactulose (Enulose) 20 gm DAILY PRN PO CONSTIPATION; Start 02/11/17 at 20:00 Nystatin (Nystatin Powder) 1 applic BID TOP Last administered on 02/22/17 21:07 ; Admin Dose 1 APPLIC; Start 02/13/17 at 21:00 Hydromorphone HCl (Dilaudid) 2 mg Q4H PRN PO PAIN Last administered on 21:20; Admin Dose 2 MG; Start 02/13/17 at 15:00 Pantoprazole (Protonix Tab) 40 mg DAILY@06 PO Last administered on 02/22/17 05: 58; Admin Dose 40 MG; Start 02/14/17 at 06:00 Tramadol HCl (Ultram) 50 mg Q6 PRN PO PAIN LEVEL 1-5; Start 02/15/17 at 14:00 Meclizine HCl (Antivert) 12.5 mg TID PRN PO dizziness Last administered on 12:42; Admin Dose 12.5 MG; Start 02/15/17 at 19:00 Diphenhydramine HCl (Benadryl) 25 mg Q6H PRN PO ITCHING; Start 02/18/17 at 16: 00 Baclofen (Lioresal) 10 mg BID PO Last administered on 02/22/17 21:05; Admin Dose 10 MG; Start 02/21/17 at 21:00 LINDSAY WEISS MD Feb 22, 2017 21:28
[2017-02-23] MEDS: ACETAMINOPHEN 325 MG TAB PO PRN ×2 (04:27→10:11)
[2017-02-23] MEDS: PANTOPRAZOLE (EC) 40 MG TAB PO SCH (06:06)
[2017-02-23 07:43] VITALS: BP 108/62; RESP 18
[2017-02-23] MEDS: DOCUSATE SODIUM 100 MG CAP PO SCH ×2 (08:20→20:28)
[2017-02-23] MEDS: ASPIRIN (EC) 81 MG TAB PO SCH (08:20)
[2017-02-23] MEDS: ENOXAPARIN 80 MG/0.8 ML SYG SC SCH ×2 (08:20→20:37)
[2017-02-23] MEDS: MECLIZINE 12.5 MG TAB PO PRN ×2 (08:20→16:13)
[2017-02-23] MEDS: BACLOFEN 10 MG TAB PO SCH ×2 (08:20→20:28)
[2017-02-23] MEDS: NYSTATIN 30 GM POWDER BTL TOP SCH ×2 (08:21→20:38)
--- NOTE | 2017-02-23 11:12 | CONS ---
Date/Time of Note Date/Time of Note DATE: 02/23/17 TIME: 11:09 Consult Date/Type/Reason Admit Date/Time Feb 11, 2017 at 17:51 Type of Consultation: nephrology Subjective Patient reports she had dizziness yesterday, improved today. Objective pulm-cta abd- soft cga ambulation Vital Signs Date Time Temp Pulse Resp B/P Pulse Ox O2 Delivery O2 Flow Rate FiO2 02/23/17 07:43 98.2 72 18 108/62 98 02/19/17 17:28 Room Air Intake and Output 02/22/17 02/22/17 02/23/17 15:00 23:00 07:00 Intake Total 1200 ml 600 ml 940 ml Output Total 350 ml Balance 1200 ml 600 ml 590 ml Results/Medications Medications Current Medications Atorvastatin Calcium (Lipitor) 20 mg DAILY@21 PO Last administered on 02/22/17 21:05; Admin Dose 20 MG; Start 02/11/17 at 21:00 Enoxaparin Sodium (Lovenox) 70 mg Q12 SC Last administered on 02/23/17 08:20; Admin Dose 70 MG; Start 02/11/17 at 21:00 Phenol (Chloraseptic Throat [place]) 1 spray PRN PRN [place] SORE THROAT; Start at 20:00 Docusate Sodium (Colace) 100 mg BID PO Last administered on 02/23/17 08:20; Admin Dose 100 MG; Start 02/11/17 at 21:00 Senna (Senokot) 1 tab HS PO Last administered on 02/22/17 21:05; Admin Dose 1 TAB; Start 02/11/17 at 21:00 Acetaminophen (Tylenol Tab) 650 mg Q4H PRN PO PAIN Last administered on 10:11; Admin Dose 650 MG; Start 02/11/17 at 20:00 Bisacodyl (Dulcolax Supp) 10 mg DAILY PRN [place] CONSTIPATION; Start 02/11/17 at 20 :00 Magnesium Hydroxide (Milk Of Mag) 30 ml BID PRN PO CONSTIPATION; Start at 20:00 Lactulose (Enulose) 20 gm DAILY PRN PO CONSTIPATION; Start 02/11/17 at 20:00 Nystatin (Nystatin Powder) 1 applic BID TOP Last administered on 02/23/17 08:21 ; Admin Dose 1 APPLIC; Start 02/13/17 at 21:00 Hydromorphone HCl (Dilaudid) 2 mg Q4H PRN PO PAIN Last administered on 21:20; Admin Dose 2 MG; Start 02/13/17 at 15:00 Pantoprazole (Protonix Tab) 40 mg DAILY@06 PO Last administered on 02/23/17 06: 06; Admin Dose 40 MG; Start 02/14/17 at 06:00 Tramadol HCl (Ultram) 50 mg Q6 PRN PO PAIN LEVEL 1-5; Start 02/15/17 at 14:00 Meclizine HCl (Antivert) 12.5 mg TID PRN PO dizziness Last administered on 08:20; Admin Dose 12.5 MG; Start 02/15/17 at 19:00 Diphenhydramine HCl (Benadryl) 25 mg Q6H PRN PO ITCHING; Start 02/18/17 at 16: 00 Baclofen (Lioresal) 10 mg BID PO Last administered on 02/23/17 08:20; Admin Dose 10 MG; Start 02/21/17 at 21:00 Assessment/Plan Additional Assessment/Plan Rehab- Posterior L frontal infardt CVA Continue rehabilitation program Dizziness-meclizine SLE HTn Dysphagia- steady progress LARISSA WILLS MD Feb 23, 2017 11:12
[2017-02-23] MEDS: traMADol 50 MG TAB PO PRN (12:19)
--- NOTE | 2017-02-23 18:58 | CONS ---
DATE OF ADMISSION: 02/11/2017 DATE OF CONSULTATION: TYPE OF CONSULTATION: Rheumatology. 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 The patient was seen at [facility] and transferred to [facility]. The patient has aphasia and right- sided weakness and has been gradually improving. At present, she complains of right-sided headache. The history is difficult to obtain from the family members as well as the patient, but apparently about 5 years ago she was diagnosed with lupus. She states she may have had an intermittently positive TANNA. She has had facial and possibly other rashes, but no renal involvement. The patient denies history of DVT or pulmonary emboli, although has had 2 miscarriages. She does have a history of bronchitis and intermittent shortness of breath and she has a history of arthralgias, possible arthritis and has been treated with steroids intermittently as well as Plaquenil, which she stopped possibly on her own. She denies definite other immunosuppressive medication intake, although it is not fully clear at this point. No recent fevers, no recent rash, no Raynaud's phenomenon, no chest pain or shortness of breath. No abdominal pain, nausea or vomiting. The patient does have chronic low back pain and has had degenerative disk disease apparently as well as a history of fibromyalgia with some diffuse achiness and fatigue and has been treated with Gabapentin in the past. PAST MEDICAL HISTORY: Positive for: 1. Lupus as above. 2. History of some palpitations helped with amlodipine unclear if she actually has a history of hypertension. 3. The patient is 5, para 3, SAB 2. MEDICATIONS PRIOR TO ADMISSION: Unclear if any prior to her CVA other than amlodipine. ALLERGIES: QUESTION OF A REACTION TO PREDNISONE WITH PRURITUS, ALTHOUGH AGAIN UNCLEAR, APPARENTLY HISTORY OF REACTION TO MORPHINE, BUT NO KNOWN ALLERGIES TO OTHER MEDICATIONS. SOCIAL HISTORY: The patient is . Does not smoke or drink alcohol. FAMILY HISTORY: Unclear. PHYSICAL EXAMINATION: GENERAL: Well-developed, slightly obese woman in no acute distress at present. Alert, appears to have slow mentation. SKIN: Without acute lesions. HEENT: Without acute oral or ocular lesions. NECK: Without lymphadenopathy. LUNGS: Clear to auscultation. HEART: Regular rate and rhythm. ABDOMEN: Soft without tenderness or masses. EXTREMITIES: Without synovitis. No cyanosis or edema. NEUROLOGIC: Partial aphasia and left-sided weakness. LABORATORY STUDIES: From the [facility] noted, including normal lipid panel, low cholesterol, negative rheumatoid factor, negative test, possible urinary infection of 02/08/2017 with many bacteria, greater than 100 red cells, 5 to 10 white cells with positive urine culture. Chemistry panel basically normal at that time except for potassium of 3.2, creatinine 0.6, normal PTT on February 05 and 320. White count 9.8. No anemia. Platelet count normal. Sedimentation rate 54. CT angio of the head and neck with contrast. There was no hemodynamically significant stenosis or occlusion. No evidence of aneurysms. Ventricles are normal. Thyroid appears normal. No lymphadenopathy noted. Sublingual glands are normal. ASSESSMENT: 1. Status post left frontal hemispheric cerebrovascular accident. Unclear if related to lupus, but no evidence of vasculitis on CT angiogram. It is unclear if the patient possibly has a phospholipid syndrome, although her PT was normal. 2. Systemic lupus erythematosus. Unclear how active at present. There is no evidence of synovitis or acute rash or renal involvement. PLAN: 1. We will obtain new MRI of the brain. 2. Will recheck various laboratory studies. 3. Would suggest a neurology evaluation, as this does not appear to be a purely arteriosclerotic disease. Thank you for having me see the patient rheumatologically. We will follow while in the hospital. Dictated By: PATITO NGUYEN/CLARKE Conf#: [id number] DID#: [id number] SAMANTHA
--- NOTE | 2017-02-23 20:14 | PN ---
Date/Time of Note Date/Time of Note DATE: 02/23/17 TIME: 20:13 Assessment/Plan VTE Prophylaxis VTE Prophylaxis Intervention: other Lines/Catheters IV Catheter Type (from Nrs): Saline Lock Urinary Cath still in place: No Reason Cath still needed: other (indicate) Assessment/Plan Chief Complaint/Hosp Course HTN HX LUPUS CVA W LEFT SIDE WEAKNESS HX MIGRAINE better dizziness plan pt ot antivert prn PT/OT per rheumatology Problems: Subjective 24 Hr Interval Summary Cardiovascular: no complaints Gastrointestinal: no complaints Exam/Review of Systems Vital Signs Vitals Vital Signs Date Time Temp Pulse Resp B/P Pulse Ox O2 Delivery O2 Flow Rate FiO2 02/23/17 07:43 98.2 72 18 108/62 98 02/19/17 17:28 Room Air Intake and Output 02/22/17 02/22/17 02/23/17 15:00 23:00 07:00 Intake Total 1200 ml 600 ml 940 ml Output Total 350 ml Balance 1200 ml 600 ml 590 ml Exam Neck: supple Respiratory: clear to auscultation Cardiovascular: regular rate and rhythm Gastrointestinal: soft Medications Medications Current Medications Atorvastatin Calcium (Lipitor) 20 mg DAILY@21 PO Last administered on 02/22/17 21:05; Admin Dose 20 MG; Start 02/11/17 at 21:00 Enoxaparin Sodium (Lovenox) 70 mg Q12 SC Last administered on 02/23/17 08:20; Admin Dose 70 MG; Start 02/11/17 at 21:00 Phenol (Chloraseptic Throat [place]) 1 spray PRN PRN [place] SORE THROAT; Start at 20:00 Docusate Sodium (Colace) 100 mg BID PO Last administered on 02/23/17 08:20; Admin Dose 100 MG; Start 02/11/17 at 21:00 Senna (Senokot) 1 tab HS PO Last administered on 02/22/17 21:05; Admin Dose 1 TAB; Start 02/11/17 at 21:00 Acetaminophen (Tylenol Tab) 650 mg Q4H PRN PO PAIN Last administered on 10:11; Admin Dose 650 MG; Start 02/11/17 at 20:00 Bisacodyl (Dulcolax Supp) 10 mg DAILY PRN [place] CONSTIPATION; Start 02/11/17 at 20 :00 Magnesium Hydroxide (Milk Of Mag) 30 ml BID PRN PO CONSTIPATION; Start at 20:00 Lactulose (Enulose) 20 gm DAILY PRN PO CONSTIPATION; Start 02/11/17 at 20:00 Nystatin (Nystatin Powder) 1 applic BID TOP Last administered on 02/23/17 08:21 ; Admin Dose 1 APPLIC; Start 02/13/17 at 21:00 Hydromorphone HCl (Dilaudid) 2 mg Q4H PRN PO PAIN Last administered on 21:20; Admin Dose 2 MG; Start 02/13/17 at 15:00 Pantoprazole (Protonix Tab) 40 mg DAILY@06 PO Last administered on 02/23/17 06: 06; Admin Dose 40 MG; Start 02/14/17 at 06:00 Tramadol HCl (Ultram) 50 mg Q6 PRN PO PAIN LEVEL 1-5 Last administered on 12:19; Admin Dose 50 MG; Start 02/15/17 at 14:00 Meclizine HCl (Antivert) 12.5 mg TID PRN PO dizziness Last administered on 16:13; Admin Dose 12.5 MG; Start 02/15/17 at 19:00 Diphenhydramine HCl (Benadryl) 25 mg Q6H PRN PO ITCHING; Start 02/18/17 at 16: 00 Baclofen (Lioresal) 10 mg BID PO Last administered on 02/23/17 08:20; Admin Dose 10 MG; Start 02/21/17 at 21:00 Lorazepam (Ativan) 1 mg ONCE ONCE PO ; Start 02/24/17 at 08:00; Stop 02/24/17 at 08:01 LINDSAY WEISS MD Feb 23, 2017 20:14
[2017-02-23] MEDS: ATORVASTATIN 20 MG TAB PO SCH (20:28)
[2017-02-23] MEDS: SENNA TAB PO SCH (20:28)
[2017-02-23] MEDS: DIPHENHYDRAMINE 25 MG CAP PO PRN (20:38)
[2017-02-24] MEDS: PANTOPRAZOLE (EC) 40 MG TAB PO SCH (06:21)
[2017-02-24 07:30] VITALS: BP 100/62; RESP 18
[2017-02-24] MEDS: LORAZEPAM 1 MG TAB PO ONE ×2 (08:00→10:05)
[2017-02-24] MEDS: HYDROmorphONE 2 MG TAB PO PRN ×2 (08:04→16:13)
[2017-02-24] MEDS: ASPIRIN (EC) 81 MG TAB PO SCH (08:06)
[2017-02-24] MEDS: NYSTATIN 30 GM POWDER BTL TOP SCH ×2 (09:00→21:53)
[2017-02-24] MEDS: BACLOFEN 10 MG TAB PO SCH ×2 (09:09→21:52)
[2017-02-24] MEDS: DOCUSATE SODIUM 100 MG CAP PO SCH ×2 (09:09→21:52)
[2017-02-24] MEDS: ENOXAPARIN 80 MG/0.8 ML SYG SC SCH ×2 (09:12→21:59)
--- NOTE | 2017-02-24 13:21 | CONS ---
Date/Time of Note Date/Time of Note DATE: 02/24/17 TIME: 13:16 Consult Date/Type/Reason Admit Date/Time Feb 11, 2017 at 17:51 Initial Consult Date Type of Consultation: Rheum Subjective No new complaints Objective Vital Signs Date Time Temp Pulse Resp B/P Pulse Ox O2 Delivery O2 Flow Rate FiO2 02/24/17 07:30 98.6 58 18 100/62 93 Intake and Output 02/23/17 02/23/17 02/24/17 15:00 23:00 07:00 Intake Total 1200 ml 800 ml 100 ml Balance 1200 ml 800 ml 100 ml Exam Alert Skin without rash HEENT without acute lesions Neck supple Chest Cleat heart RRR Abd soft. Neurol without change. Results/Medications Results 24 hrs Laboratory Tests Test 02/24/17 06:07 C-Reactive Protein 0.7 Medications Current Medications Atorvastatin Calcium (Lipitor) 20 mg DAILY@21 PO Last administered on 02/23/17 20:28; Admin Dose 20 MG; Start 02/11/17 at 21:00 Enoxaparin Sodium (Lovenox) 70 mg Q12 SC Last administered on 02/24/17 09:12; Admin Dose 70 MG; Start 02/11/17 at 21:00 Phenol (Chloraseptic Throat [place]) 1 spray PRN PRN [place] SORE THROAT; Start at 20:00 Docusate Sodium (Colace) 100 mg BID PO Last administered on 02/24/17 09:09; Admin Dose 100 MG; Start 02/11/17 at 21:00 Senna (Senokot) 1 tab HS PO Last administered on 02/23/17 20:28; Admin Dose 1 TAB; Start 02/11/17 at 21:00 Acetaminophen (Tylenol Tab) 650 mg Q4H PRN PO PAIN Last administered on 10:11; Admin Dose 650 MG; Start 02/11/17 at 20:00 Bisacodyl (Dulcolax Supp) 10 mg DAILY PRN [place] CONSTIPATION; Start 02/11/17 at 20 :00 Magnesium Hydroxide (Milk Of Mag) 30 ml BID PRN PO CONSTIPATION; Start at 20:00 Lactulose (Enulose) 20 gm DAILY PRN PO CONSTIPATION; Start 02/11/17 at 20:00 Nystatin (Nystatin Powder) 1 applic BID TOP Last administered on 02/23/17 20:38 ; Admin Dose 1 APPLIC; Start 02/13/17 at 21:00 Hydromorphone HCl (Dilaudid) 2 mg Q4H PRN PO PAIN Last administered on 08:04; Admin Dose 2 MG; Start 02/13/17 at 15:00 Pantoprazole (Protonix Tab) 40 mg DAILY@06 PO Last administered on 02/24/17 06: 21; Admin Dose 40 MG; Start 02/14/17 at 06:00 Tramadol HCl (Ultram) 50 mg Q6 PRN PO PAIN LEVEL 1-5 Last administered on 12:19; Admin Dose 50 MG; Start 02/15/17 at 14:00 Meclizine HCl (Antivert) 12.5 mg TID PRN PO dizziness Last administered on 16:13; Admin Dose 12.5 MG; Start 02/15/17 at 19:00 Diphenhydramine HCl (Benadryl) 25 mg Q6H PRN PO ITCHING Last administered on 20:38; Admin Dose 25 MG; Start 02/18/17 at 16:00 Baclofen (Lioresal) 10 mg BID PO Last administered on 02/24/17 09:09; Admin Dose 10 MG; Start 02/21/17 at 21:00 Assessment/Plan Chief Complaint/Hosp Course Ass. 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 Doubt vasculitis 2. SLE Unclear if active Plan Labs and MRI of brain pending. Problems: PATITO LO MD Feb 24, 2017 13:20
--- NOTE | 2017-02-24 14:22 | PN ---
Date/Time of Note Date/Time of Note DATE: 02/24/17 TIME: 14:15 Assessment/Plan VTE Prophylaxis VTE Prophylaxis Intervention: LMWH Lines/Catheters IV Catheter Type (from [facility]): Saline Lock Urinary Cath still in place: No Assessment/Plan Assessment/Plan 1. 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 Continue PT/OT/ST. SPV for grooming, CGA for lower body dressing. Secondary stroke prevention per neurology. 2. History of hypertension. Monitor BP, has been on the low side. Internal medicine managing. 3. SLE. Medical management per rheumatology. Subjective 24 Hr Interval Summary Free Text/Dictation Rehab progress note Subjective: Reports dizziness, no new changes. No current headache. No new weakness. ROS: Denies chest pain, no shortness of breath, no abdominal pain, no nausea, no vomiting. Exam/Review of Systems Vital Signs Vitals Vital Signs Date Time Temp Pulse Resp B/P Pulse Ox O2 Delivery O2 Flow Rate FiO2 02/24/17 07:30 98.6 58 18 100/62 93 Intake and Output 02/23/17 02/23/17 02/24/17 14:59 22:59 06:59 Intake Total 1900 ml 800 ml 100 ml Balance 1900 ml 800 ml 100 ml Exam General: Awake, alert, no acute distress CV: Regular rate, s1s2 Lungs: Clear to auscultation, no wheezing Abdomen soft, nontender Extremities without cyanosis, LLE knee brace in place Neuro: Left sided weakness improving. Expressive aphasia improving. Results Results 24 hrs Laboratory Tests Test 02/24/17 06:07 C-Reactive Protein 0.7 Medications Medications Current Medications Atorvastatin Calcium (Lipitor) 20 mg DAILY@21 PO Last administered on 02/23/17 20:28; Admin Dose 20 MG; Start 02/11/17 at 21:00 Enoxaparin Sodium (Lovenox) 70 mg Q12 SC Last administered on 02/24/17 09:12; Admin Dose 70 MG; Start 02/11/17 at 21:00 Phenol (Chloraseptic Throat [place]) 1 spray PRN PRN [place] SORE THROAT; Start at 20:00 Docusate Sodium (Colace) 100 mg BID PO Last administered on 02/24/17 09:09; Admin Dose 100 MG; Start 02/11/17 at 21:00 Senna (Senokot) 1 tab HS PO Last administered on 02/23/17 20:28; Admin Dose 1 TAB; Start 02/11/17 at 21:00 Acetaminophen (Tylenol Tab) 650 mg Q4H PRN PO PAIN Last administered on 10:11; Admin Dose 650 MG; Start 02/11/17 at 20:00 Bisacodyl (Dulcolax Supp) 10 mg DAILY PRN [place] CONSTIPATION; Start 02/11/17 at 20 :00 Magnesium Hydroxide (Milk Of Mag) 30 ml BID PRN PO CONSTIPATION; Start at 20:00 Lactulose (Enulose) 20 gm DAILY PRN PO CONSTIPATION; Start 02/11/17 at 20:00 Nystatin (Nystatin Powder) 1 applic BID TOP Last administered on 02/23/17 20:38 ; Admin Dose 1 APPLIC; Start 02/13/17 at 21:00 Hydromorphone HCl (Dilaudid) 2 mg Q4H PRN PO PAIN Last administered on 08:04; Admin Dose 2 MG; Start 02/13/17 at 15:00 Pantoprazole (Protonix Tab) 40 mg DAILY@06 PO Last administered on 02/24/17 06: 21; Admin Dose 40 MG; Start 02/14/17 at 06:00 Tramadol HCl (Ultram) 50 mg Q6 PRN PO PAIN LEVEL 1-5 Last administered on 12:19; Admin Dose 50 MG; Start 02/15/17 at 14:00 Meclizine HCl (Antivert) 12.5 mg TID PRN PO dizziness Last administered on 16:13; Admin Dose 12.5 MG; Start 02/15/17 at 19:00 Diphenhydramine HCl (Benadryl) 25 mg Q6H PRN PO ITCHING Last administered on 20:38; Admin Dose 25 MG; Start 02/18/17 at 16:00 Baclofen (Lioresal) 10 mg BID PO Last administered on 02/24/17 09:09; Admin Dose 10 MG; Start 02/21/17 at 21:00 PRABHA WAGGONER Feb 24, 2017 14:22
[2017-02-24 20:00] VITALS: BP 100/61; RESP 18
--- NOTE | 2017-02-24 21:05 | PN ---
Date/Time of Note Date/Time of Note DATE: 02/24/17 TIME: 21:04 Assessment/Plan VTE Prophylaxis VTE Prophylaxis Intervention: other Lines/Catheters IV [facility] Saline Lock Urinary Cath still in place: No Assessment/Plan Chief Complaint/Hosp Course HTN HX LUPUS CVA W LEFT SIDE WEAKNESS HX MIGRAINE better dizziness plan pt ot antivert prn PT/OT per rheumatology Problems: Subjective 24 Hr Interval Summary Cardiovascular: no complaints Gastrointestinal: no complaints Genitourinary: no complaints Exam/Review of Systems Vital Signs Vitals Vital Signs Date Time Temp Pulse Resp B/P Pulse Ox O2 Delivery O2 Flow Rate FiO2 02/24/17 07:30 98.6 58 18 100/62 93 Intake and Output 02/23/17 02/23/17 02/24/17 15:00 23:00 07:00 Intake Total 1200 ml 800 ml 100 ml Balance 1200 ml 800 ml 100 ml Exam Respiratory: clear to auscultation Cardiovascular: regular rate and rhythm Gastrointestinal: soft Extremities: No edema Results Results 24 hrs Laboratory Tests Test 02/24/17 06:07 Erythrocyte Sedimentation Rate 19 C-Reactive Protein 0.7 Medications Medications Current Medications Atorvastatin Calcium (Lipitor) 20 mg DAILY@21 PO Last administered on 02/23/17 20:28; Admin Dose 20 MG; Start 02/11/17 at 21:00 Enoxaparin Sodium (Lovenox) 70 mg Q12 SC Last administered on 02/24/17 09:12; Admin Dose 70 MG; Start 02/11/17 at 21:00 Phenol (Chloraseptic Throat [place]) 1 spray PRN PRN [place] SORE THROAT; Start at 20:00 Docusate Sodium (Colace) 100 mg BID PO Last administered on 02/24/17 09:09; Admin Dose 100 MG; Start 02/11/17 at 21:00 Senna (Senokot) 1 tab HS PO Last administered on 02/23/17 20:28; Admin Dose 1 TAB; Start 02/11/17 at 21:00 Acetaminophen (Tylenol Tab) 650 mg Q4H PRN PO PAIN Last administered on 10:11; Admin Dose 650 MG; Start 02/11/17 at 20:00 Bisacodyl (Dulcolax Supp) 10 mg DAILY PRN [place] CONSTIPATION; Start 02/11/17 at 20 :00 Magnesium Hydroxide (Milk Of Mag) 30 ml BID PRN PO CONSTIPATION; Start at 20:00 Lactulose (Enulose) 20 gm DAILY PRN PO CONSTIPATION; Start 02/11/17 at 20:00 Nystatin (Nystatin Powder) 1 applic BID TOP Last administered on 02/23/17 20:38 ; Admin Dose 1 APPLIC; Start 02/13/17 at 21:00 Hydromorphone HCl (Dilaudid) 2 mg Q4H PRN PO PAIN Last administered on 16:13; Admin Dose 2 MG; Start 02/13/17 at 15:00 Pantoprazole (Protonix Tab) 40 mg DAILY@06 PO Last administered on 02/24/17 06: 21; Admin Dose 40 MG; Start 02/14/17 at 06:00 Tramadol HCl (Ultram) 50 mg Q6 PRN PO PAIN LEVEL 1-5 Last administered on 12:19; Admin Dose 50 MG; Start 02/15/17 at 14:00 Meclizine HCl (Antivert) 12.5 mg TID PRN PO dizziness Last administered on 16:13; Admin Dose 12.5 MG; Start 02/15/17 at 19:00 Diphenhydramine HCl (Benadryl) 25 mg Q6H PRN PO ITCHING Last administered on 20:38; Admin Dose 25 MG; Start 02/18/17 at 16:00 Baclofen (Lioresal) 10 mg BID PO Last administered on 02/24/17 09:09; Admin Dose 10 MG; Start 02/21/17 at 21:00 LINDSAY WEISS MD Feb 24, 2017 21:05
[2017-02-24] MEDS: DIPHENHYDRAMINE 25 MG CAP PO PRN (21:52)
[2017-02-24] MEDS: ATORVASTATIN 20 MG TAB PO SCH (21:52)
[2017-02-24] MEDS: SENNA TAB PO SCH (21:52)
[2017-02-25] MEDS: PANTOPRAZOLE (EC) 40 MG TAB PO SCH (06:43)
[2017-02-25 07:11] LABS: ADD SCAN DIFF NO
[2017-02-25 07:19] LABS: BASOPHILS % 0.4 % (0.0-2.0); EOSINOPHILS # 0.1 10^3/ul (0.0-0.5); EOSINOPHILS % 1.5 % (0.0-7.0); HEMATOCRIT 40.8 % (37.0-47.0); HEMOGLOBIN 12.8 g/dl (12.0-16.0); LYMPHOCYTES # 2.8 10^3/ul (0.8-2.9); LYMPHOCYTES % 35.1 % (15.0-51.0); MEAN CORPUSCULAR HEMOGLOBIN 27.2 pg (29.0-33.0); MEAN CORPUSCULAR HGB CONC 31.4 g/dl (32.0-37.0); MEAN CORPUSCULAR VOLUME 86.8 fl (82.0-101.0); MEAN PLATELET VOLUME 10.8 fl (7.4-10.4); MONOCYTE # 0.6 10^3/ul (0.3-0.9); MONOCYTES % 7.3 % (0.0-11.0); NEUTROPHIL # 4.5 10^3/ul (1.6-7.5); NEUTROPHILS % 55.3 % (39.0-77.0); PLATELET COUNT 299 10^3/UL (140-415); RED CELL DISTRIBUTION WIDTH 13.9 % (11.5-14.5); WHITE BLOOD COUNT 8.1 10^3/ul (4.8-10.8)
[2017-02-25 07:40] VITALS: BP 91/55; RESP 18
[2017-02-25 07:47] LABS: ALBUMIN 3.7 g/dl (3.3-4.9); ALBUMIN/GLOBULIN RATIO 1.08; BILIRUBIN,INDIRECT 0.4 mg/dl (0-1.1); BILIRUBIN,TOTAL 0.4 mg/dl (0.2-1.3); CALCIUM 8.6 mg/dl (8.4-10.2); CREATININE 0.77 mg/dl (0.44-1.00); POTASSIUM 4.4 mmol/L (3.5-5.1); TOTAL PROTEIN 7.1 g/dl (6.1-8.1)
--- NOTE | 2017-02-25 08:31 | RADRPT ---
PROCEDURE: MRI Brain without contrast. CLINICAL INDICATION: Stroke, follow-up CVA, weakness, speech issues TECHNIQUE: Multiplanar MRI of the brain without contrast was performed on a 3.0 T scanner with the following sequences obtained: T1-weighted, T2-weighted/FLAIR, diffusion weighted (with ADC map), GR E. COMPARISON: None available FINDINGS: There is an area of signal abnormality in the left frontal lobe posteriorly extending down towards t he operculum with relative mild increased diffusion weighted signal intensity, increased T2-weighted FLAIR signal intensity, and cortical increased T1-weighted signal intensity without associated susc eptibility can probable with laminar necrosis. Findings likely represent a subacute infarct. No in tracranial hemorrhage - blood degradation products are identified. No extra-axial fluid collection is seen. There is no mass effect. No midline shift is identified. The ventricles and sulci are within normal limits for size and configuration. The sella appears part ly empty. Flow voids are identified in the proximal intracranial arteries and dural sinuses suggesting patency . There is near-complete left maxillary sinus opacification, moderate mucous retention cyst and mild m ucosal thickening at the right maxillary sinus, and scattered mild to moderate bilateral ethmoid air cell mucosal thickening. IMPRESSION: 1. Findings likely representing a subacute left frontal infarct. 2. Partly empty sella. RPTAT: VV .Chet Mcdonald MD, Date Time Electronically viewed and signed by .Chet Mcdonald MD, on 02/24/2017 11:35 .O/
[2017-02-25] MEDS: ASPIRIN (EC) 81 MG TAB PO SCH (08:59)
[2017-02-25] MEDS: MECLIZINE 12.5 MG TAB PO PRN (08:59)
[2017-02-25] MEDS: DOCUSATE SODIUM 100 MG CAP PO SCH ×2 (08:59→20:07)
[2017-02-25] MEDS: NYSTATIN 30 GM POWDER BTL TOP SCH ×2 (09:00→20:13)
[2017-02-25] MEDS: HYDROmorphONE 2 MG TAB PO PRN ×3 (09:00→22:47)
[2017-02-25] MEDS: BACLOFEN 10 MG TAB PO SCH ×2 (11:01→20:07)
[2017-02-25] MEDS: ENOXAPARIN 80 MG/0.8 ML SYG SC SCH ×2 (11:09→20:09)
--- NOTE | 2017-02-25 12:28 | PN ---
Date/Time of Note Date/Time of Note DATE: 02/25/17 TIME: 12:14 Assessment/Plan VTE Prophylaxis VTE Prophylaxis Intervention: LMWH Lines/Catheters IV C[facility]ter Type (from [facility]): Saline Lock Urinary Cath still in place: No Assessment/Plan Assessment/Plan 1. Left posterior frontal lobe CVA with left nondominant hemiparesis, impaired mobility/gait/ADLs, dysphagia and aphasia. Continue PT/OT/ST, progressing. Currently SPV for upper body dressing and CGA for bathing. With ongoing headache and dizziness since her stroke, medical management per neurology, has been consulted. 2. History of hypertension. BPs on the low side. Defer management per internal medicine. 3. Lupus. Rheumatology following. Subjective 24 Hr Interval Summary Free Text/Dictation Rehab progress note Subjective: Denies new complaints. Still with intermittent dizziness and headache. ROS: Denies chest pain, no shortness of breath, no abdominal pain, no nausea, no vomiting, no new weakness or paresthesias. Nursing reports moving bowels. Exam/Review of Systems Vital Signs Vitals Vital Signs Date Time Temp Pulse Resp B/P Pulse Ox O2 Delivery O2 Flow Rate FiO2 02/25/17 07:40 98.4 62 18 91/55 97 Intake and Output 02/24/17 02/24/17 02/25/17 14:59 22:59 06:59 Intake Total 460 ml 300 ml Balance 460 ml 300 ml Exam General: Awake, alert, no acute distress CV: Regular rate, s1s2 Lungs: Clear to auscultation, no wheezing Abdomen soft, nontender Extremities without new swelling, no cyanosis Neuro: Left hemiparesis and aphasia, no new focal changes. Results Result Diagram: 02/25/17 0635 02/25/17 0635 Results 24 hrs Laboratory Tests Test 02/25/17 06:35 White Blood Count 8.1 Red Blood Count 4.70 Hemoglobin 12.8 Hematocrit 40.8 Mean Corpuscular Volume 86.8 Mean Corpuscular Hemoglobin 27.2 L Mean Corpuscular Hemoglobin Concent 31.4 L Red Cell Distribution Width 13.9 Platelet Count 299 Mean Platelet Volume 10.8 H Neutrophils % 55.3 Lymphocytes % 35.1 Monocytes % 7.3 Eosinophils % 1.5 Basophils % 0.4 Nucleated Red Blood Cells % 0.0 Neutrophils # 4.5 Lymphocytes # 2.8 Monocytes # 0.6 Eosinophils # 0.1 Basophils # 0.0 Nucleated Red Blood Cells # 0.0 Sodium Level 140 Potassium Level 4.4 Chloride Level 107 Carbon Dioxide Level 27 Anion Gap 10 Blood Urea Nitrogen 8 Creatinine 0.77 Glucose Level 87 Calcium Level 8.6 Total Bilirubin 0.4 Direct Bilirubin 0.00 Indirect Bilirubin 0.4 Aspartate Amino Transf (AST/SGOT) 46 Alanine Aminotransferase (ALT/SGPT) 102 H Alkaline Phosphatase 94 Total Protein 7.1 Albumin 3.7 Globulin 3.40 H Albumin/Globulin Ratio 1.08 Medications Medications Current Medications Atorvastatin Calcium (Lipitor) 20 mg DAILY@21 PO Last administered on 02/24/17 21:52; Admin Dose 20 MG; Start 02/11/17 at 21:00 Enoxaparin Sodium (Lovenox) 70 mg Q12 SC Last administered on 02/25/17 11:09; Admin Dose 70 MG; Start 02/11/17 at 21:00 Phenol (Chloraseptic Throat [place]) 1 spray PRN PRN [place] SORE THROAT; Start at 20:00 Docusate Sodium (Colace) 100 mg BID PO Last administered on 02/25/17 08:59; Admin Dose 100 MG; Start 02/11/17 at 21:00 Senna (Senokot) 1 tab HS PO Last administered on 02/24/17 21:52; Admin Dose 1 TAB; Start 02/11/17 at 21:00 Acetaminophen (Tylenol Tab) 650 mg Q4H PRN PO PAIN Last administered on 10:11; Admin Dose 650 MG; Start 02/11/17 at 20:00 Bisacodyl (Dulcolax Supp) 10 mg DAILY PRN [place] CONSTIPATION; Start 02/11/17 at 20 :00 Magnesium Hydroxide (Milk Of Mag) 30 ml BID PRN PO CONSTIPATION; Start at 20:00 Lactulose (Enulose) 20 gm DAILY PRN PO CONSTIPATION; Start 02/11/17 at 20:00 Nystatin (Nystatin Powder) 1 applic BID TOP Last administered on 02/24/17 21:53 ; Admin Dose 1 APPLIC; Start 02/13/17 at 21:00 Hydromorphone HCl (Dilaudid) 2 mg Q4H PRN PO PAIN Last administered on 09:00; Admin Dose 2 MG; Start 02/13/17 at 15:00 Pantoprazole (Protonix Tab) 40 mg DAILY@06 PO Last administered on 02/25/17 06: 43; Admin Dose 40 MG; Start 02/14/17 at 06:00 Tramadol HCl (Ultram) 50 mg Q6 PRN PO PAIN LEVEL 1-5 Last administered on 12:19; Admin Dose 50 MG; Start 02/15/17 at 14:00 Meclizine HCl (Antivert) 12.5 mg TID PRN PO dizziness Last administered on 08:59; Admin Dose 12.5 MG; Start 02/15/17 at 19:00 Diphenhydramine HCl (Benadryl) 25 mg Q6H PRN PO ITCHING Last administered on 21:52; Admin Dose 25 MG; Start 02/18/17 at 16:00 Baclofen (Lioresal) 10 mg BID PO Last administered on 02/25/17 11:01; Admin Dose 10 MG; Start 02/21/17 at 21:00 Topiramate (Topamax) 25 mg DAILY PO ; Start 02/25/17 at 12:30; Status PRABHA RUSSELL Feb 25, 2017 12:28
--- NOTE | 2017-02-25 12:32 | CONS ---
Date/Time of Note Date/Time of Note DATE: 02/25/17 TIME: 12:08 Assessment/Plan Assessment/Plan Chief Complaint/Hosp Course 42 year old female with history of SLE recent left MCA distribution stroke cryptogenic etiology. Stroke work up should have included an ECHO with a bubble study to rule possibility of PFO, further eval for antiphospholipid syndrome. CTA showed no signs of vasculitis per report. MRI shows no acute infarction. Recommendations: -may initiate low dose Topamax 25 mg qhs for migraine prophylaxis -will send labs for antiphospholipid AB will need outpatient hematology follow up as some labs may need to be repeated in 6 weeks -continue antiplatelet, statin, maintain normotension, maintain euglycemia -dvt ppx continue therapies Problems: Consultation Date/Type/Reason Admit Date/Time Feb 11, 2017 at 17:51 Date of Consultation: Feb 25, 2017 Type of Consultation: Neurology Reason for Consultation SLE chronic headaches Hx of Present Illness 42 year old right handed female with history of lupus and hypertension presented an outside hospital on 02/05 with difficulty speaking and left sided weakness. Her work up done at outside hospital showed an acute infarct posterior left frontal lobe extending into insular cortex, CTA showed no vascular abnormalities. She was out of a window for thrombolytic therapy and initiated on appropriate medications for secondary stroke prevention including antiplatelet, statin, blood pressure medications transferred to [place] at [facility] for further care. She complains of headaches and dizziness since her stroke, reports symptoms occur up to 2 times a week and described typical migrainous features. History is limited as she has moderate expressive aphasia. She denies improvement of headaches with tylenol, willing to take a daily migraine prophylaxis. Constitutional: no complaints Eyes: no complaints ENT: no complaints Respiratory: no complaints Cardiovascular: no complaints Gastrointestinal: no complaints Genitourinary: no complaints Musculoskeletal: back pain Skin: no complaints Neurologic: no complaints, other (LEFT SIDE WEAKNESS) Endocrine: no complaints Psychological: no complaints Immunologic: no complaints Social History Smoking Status: Never smoker Exam/Review of Systems Vital Signs Vitals Vital Signs Date Time Temp Pulse Resp B/P Pulse Ox O2 Delivery O2 Flow Rate FiO2 02/25/17 07:40 98.4 62 18 91/55 97 Intake and Output 02/24/17 02/24/17 02/25/17 15:00 23:00 07:00 Intake Total 460 ml 300 ml Balance 460 ml 300 ml Exam awake and alert NAD in wheelchair mostly expressive aphasia follows commands well CN: AYSE VFF EOMI no nystagmus no significant facial asymmetry tongue midline Motor: left arm pronator drift, slight, left leg in AFO limited movement right leg full strength Coordination no ataxia Results Result Diagram: 02/25/17 0635 02/25/17 0635 Results 24 hrs Laboratory Tests Test 02/25/17 06:35 White Blood Count 8.1 Red Blood Count 4.70 Hemoglobin 12.8 Hematocrit 40.8 Mean Corpuscular Volume 86.8 Mean Corpuscular Hemoglobin 27.2 L Mean Corpuscular Hemoglobin Concent 31.4 L Red Cell Distribution Width 13.9 Platelet Count 299 Mean Platelet Volume 10.8 H Neutrophils % 55.3 Lymphocytes % 35.1 Monocytes % 7.3 Eosinophils % 1.5 Basophils % 0.4 Nucleated Red Blood Cells % 0.0 Neutrophils # 4.5 Lymphocytes # 2.8 Monocytes # 0.6 Eosinophils # 0.1 Basophils # 0.0 Nucleated Red Blood Cells # 0.0 Sodium Level 140 Potassium Level 4.4 Chloride Level 107 Carbon Dioxide Level 27 Anion Gap 10 Blood Urea Nitrogen 8 Creatinine 0.77 Glucose Level 87 Calcium Level 8.6 Total Bilirubin 0.4 Direct Bilirubin 0.00 Indirect Bilirubin 0.4 Aspartate Amino Transf (AST/SGOT) 46 Alanine Aminotransferase (ALT/SGPT) 102 H Alkaline Phosphatase 94 Total Protein 7.1 Albumin 3.7 Globulin 3.40 H Albumin/Globulin Ratio 1.08 Medications Medications Current Medications Atorvastatin Calcium (Lipitor) 20 mg DAILY@21 PO Last administered on 02/24/17 21:52; Admin Dose 20 MG; Start 02/11/17 at 21:00 Enoxaparin Sodium (Lovenox) 70 mg Q12 SC Last administered on 02/25/17 11:09; Admin Dose 70 MG; Start 02/11/17 at 21:00 Phenol (Chloraseptic Throat [place]) 1 spray PRN PRN [place] SORE THROAT; Start at 20:00 Docusate Sodium (Colace) 100 mg BID PO Last administered on 02/25/17 08:59; Admin Dose 100 MG; Start 02/11/17 at 21:00 Senna (Senokot) 1 tab HS PO Last administered on 02/24/17 21:52; Admin Dose 1 TAB; Start 02/11/17 at 21:00 Acetaminophen (Tylenol Tab) 650 mg Q4H PRN PO PAIN Last administered on 10:11; Admin Dose 650 MG; Start 02/11/17 at 20:00 Bisacodyl (Dulcolax Supp) 10 mg DAILY PRN [place] CONSTIPATION; Start 02/11/17 at 20 :00 Magnesium Hydroxide (Milk Of Mag) 30 ml BID PRN [place] CONSTIPATION; Start at 20:00 Lactulose (Enulose) 20 gm DAILY PRN PO CONSTIPATION; Start 02/11/17 at 20:00 Nystatin (Nystatin Powder) 1 applic BID TOP Last administered on 02/24/17 21:53 ; Admin Dose 1 APPLIC; Start 02/13/17 at 21:00 Hydromorphone HCl (Dilaudid) 2 mg Q4H PRN PO PAIN Last administered on 09:00; Admin Dose 2 MG; Start 02/13/17 at 15:00 Pantoprazole (Protonix Tab) 40 mg DAILY@06 PO Last administered on 02/25/17 06: 43; Admin Dose 40 MG; Start 02/14/17 at 06:00 Tramadol HCl (Ultram) 50 mg Q6 PRN PO PAIN LEVEL 1-5 Last administered on 12:19; Admin Dose 50 MG; Start 02/15/17 at 14:00 Meclizine HCl (Antivert) 12.5 mg TID PRN PO dizziness Last administered on 08:59; Admin Dose 12.5 MG; Start 02/15/17 at 19:00 Diphenhydramine HCl (Benadryl) 25 mg Q6H PRN PO ITCHING Last administered on 21:52; Admin Dose 25 MG; Start 02/18/17 at 16:00 Baclofen (Lioresal) 10 mg BID PO Last administered on 02/25/17 11:01; Admin Dose 10 MG; Start 02/21/17 at 21:00 NICOLAS GIMENEZ MD Feb 25, 2017 12:20
[2017-02-25] MEDS: TOPIRAMATE 25 MG TAB PO SCH (14:24)
--- NOTE | 2017-02-25 14:38 | CONS ---
Date/Time of Note Date/Time of Note DATE: 02/25/17 TIME: 14:31 Consult Date/Type/Reason Admit Date/Time Feb 11, 2017 at 17:51 Type of Consultation: Rheum Subjective Some headache but no increased weakness or numbness. No arthralgias. No rash. Objective Vital Signs Date Time Temp Pulse Resp B/P Pulse Ox O2 Delivery O2 Flow Rate FiO2 02/25/17 07:40 98.4 62 18 91/55 97 Intake and Output 02/24/17 02/24/17 02/25/17 15:00 23:00 07:00 Intake Total 460 ml 300 ml Balance 460 ml 300 ml Exam Alert Skin without rash HEENT without acute lesions Neck supple Chest Clear heart RRR Abd soft. Ext. No synovitis Neurol without change. Mentation appears normal although speech a little slow. Results/Medications Result Diagram: 02/25/17 0635 02/25/17 0635 Results 24 hrs Laboratory Tests Test 02/25/17 06:35 White Blood Count 8.1 Red Blood Count 4.70 Hemoglobin 12.8 Hematocrit 40.8 Mean Corpuscular Volume 86.8 Mean Corpuscular Hemoglobin 27.2 L Mean Corpuscular Hemoglobin Concent 31.4 L Red Cell Distribution Width 13.9 Platelet Count 299 Mean Platelet Volume 10.8 H Neutrophils % 55.3 Lymphocytes % 35.1 Monocytes % 7.3 Eosinophils % 1.5 Basophils % 0.4 Nucleated Red Blood Cells % 0.0 Neutrophils # 4.5 Lymphocytes # 2.8 Monocytes # 0.6 Eosinophils # 0.1 Basophils # 0.0 Nucleated Red Blood Cells # 0.0 Sodium Level 140 Potassium Level 4.4 Chloride Level 107 Carbon Dioxide Level 27 Anion Gap 10 Blood Urea Nitrogen 8 Creatinine 0.77 Glucose Level 87 Calcium Level 8.6 Total Bilirubin 0.4 Direct Bilirubin 0.00 Indirect Bilirubin 0.4 Aspartate Amino Transf (AST/SGOT) 46 Alanine Aminotransferase (ALT/SGPT) 102 H Alkaline Phosphatase 94 Total Protein 7.1 Albumin 3.7 Globulin 3.40 H Albumin/Globulin Ratio 1.08 DS DNA negative Others pending Medications Current Medications Atorvastatin Calcium (Lipitor) 20 mg DAILY@21 PO Last administered on 02/24/17t 21:52; Admin Dose 20 MG; Start 02/11/17 at 21:00 Enoxaparin Sodium (Lovenox) 70 mg Q12 SC Last administered on 02/25/17 11:09; Admin Dose 70 MG; Start 02/11/17 at 21:00 Phenol (Chloraseptic Throat [place]) 1 spray PRN PRN [place] SORE THROAT; Start at 20:00 Docusate Sodium (Colace) 100 mg BID PO Last administered on 02/25/17 08:59; Admin Dose 100 MG; Start 02/11/17 at 21:00 Senna (Senokot) 1 tab HS PO Last administered on 02/24/17 21:52; Admin Dose 1 TAB; Start 02/11/17 at 21:00 Acetaminophen (Tylenol Tab) 650 mg Q4H PRN PO PAIN Last administered on 10:11; Admin Dose 650 MG; Start 02/11/17 at 20:00 Bisacodyl (Dulcolax Supp) 10 mg DAILY PRN [place] CONSTIPATION; Start 02/11/17 at 20 :00 Magnesium Hydroxide (Milk Of Mag) 30 ml BID PRN PO CONSTIPATION; Start at 20:00 Lactulose (Enulose) 20 gm DAILY PRN PO CONSTIPATION; Start 02/11/17 at 20:00 Nystatin (Nystatin Powder) 1 applic BID TOP Last administered on 02/24/17 21:53 ; Admin Dose 1 APPLIC; Start 02/13/17 at 21:00 Hydromorphone HCl (Dilaudid) 2 mg Q4H PRN PO PAIN Last administered on 14:26; Admin Dose 2 MG; Start 02/13/17 at 15:00 Pantoprazole (Protonix Tab) 40 mg DAILY@06 PO Last administered on 02/25/17 06: 43; Admin Dose 40 MG; Start 02/14/17 at 06:00 Tramadol HCl (Ultram) 50 mg Q6 PRN PO PAIN LEVEL 1-5 Last administered on 12:19; Admin Dose 50 MG; Start 02/15/17 at 14:00 Meclizine HCl (Antivert) 12.5 mg TID PRN PO dizziness Last administered on 08:59; Admin Dose 12.5 MG; Start 02/15/17 at 19:00 Diphenhydramine HCl (Benadryl) 25 mg Q6H PRN PO ITCHING Last administered on 21:52; Admin Dose 25 MG; Start 02/18/17 at 16:00 Baclofen (Lioresal) 10 mg BID PO Last administered on 02/25/17 11:01; Admin Dose 10 MG; Start 02/21/17 at 21:00 Topiramate (Topamax) 25 mg DAILY PO Last administered on 02/25/17 14:24; Admin Dose 25 MG; Start 02/25/17 at 12:30 Assessment/Plan Chief Complaint/Hosp Course Ass. 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 Doubt vasculitis. MRI results noted. 2. SLE Unclear if active. ESR and C-RP not particularly elevated and no rash or arthritis. Plan Continue present plan. Consider echo as per Neurology to r/o foramen ovale etiology. Problems: PATITO LO MD Feb 25, 2017 14:38
[2017-02-25 20:00] VITALS: BP 107/68; RESP 18
[2017-02-25] MEDS: SENNA TAB PO SCH (20:07)
[2017-02-25] MEDS: traMADol 50 MG TAB PO PRN (20:08)
[2017-02-25] MEDS: ATORVASTATIN 20 MG TAB PO SCH (20:08)
--- NOTE | 2017-02-26 00:25 | CONS ---
Date/Time of Note Date/Time of Note DATE: 02/26/17 TIME: 00:24 Assessment/Plan Assessment/Plan Chief Complaint/Hosp Course HTN HX LUPUS CVA W LEFT SIDE WEAKNESS HX MIGRAINE better dizziness plan pt ot antivert prn PT/OT per rheumatology mri seen neuro consult Problems: Consultation Date/Type/Reason Admit Date/Time Feb 11, 2017 at 17:51 Type of Consultation: enal 24 HR Interval Summary Constitutional: no complaints Exam/Review of Systems Vital Signs Vitals Vital Signs Date Time Temp Pulse Resp B/P Pulse Ox O2 Delivery O2 Flow Rate FiO2 02/25/17 20:00 98.1 76 18 107/68 97 Intake and Output 02/25/17 02/25/17 02/26/17 15:00 23:00 07:00 Intake Total 1200 ml 600 ml Balance 1200 ml 600 ml Exam Neck: supple Respiratory: clear to auscultation Cardiovascular: regular rate and rhythm Results Result Diagram: 02/25/17 0635 02/25/17 0635 Results 24 hrs Laboratory Tests Test 02/25/17 06:35 White Blood Count 8.1 Red Blood Count 4.70 Hemoglobin 12.8 Hematocrit 40.8 Mean Corpuscular Volume 86.8 Mean Corpuscular Hemoglobin 27.2 L Mean Corpuscular Hemoglobin Concent 31.4 L Red Cell Distribution Width 13.9 Platelet Count 299 Mean Platelet Volume 10.8 H Neutrophils % 55.3 Lymphocytes % 35.1 Monocytes % 7.3 Eosinophils % 1.5 Basophils % 0.4 Nucleated Red Blood Cells % 0.0 Neutrophils # 4.5 Lymphocytes # 2.8 Monocytes # 0.6 Eosinophils # 0.1 Basophils # 0.0 Nucleated Red Blood Cells # 0.0 Sodium Level 140 Potassium Level 4.4 Chloride Level 107 Carbon Dioxide Level 27 Anion Gap 10 Blood Urea Nitrogen 8 Creatinine 0.77 Glucose Level 87 Calcium Level 8.6 Total Bilirubin 0.4 Direct Bilirubin 0.00 Indirect Bilirubin 0.4 Aspartate Amino Transf (AST/SGOT) 46 Alanine Aminotransferase (ALT/SGPT) 102 H Alkaline Phosphatase 94 Total Protein 7.1 Albumin 3.7 Globulin 3.40 H Albumin/Globulin Ratio 1.08 Medications Medications Current Medications Atorvastatin Calcium (Lipitor) 20 mg DAILY@21 PO Last administered on 02/25/17t 20:08; Admin Dose 20 MG; Start 02/11/17 at 21:00 Enoxaparin Sodium (Lovenox) 70 mg Q12 SC Last administered on 02/25/17 20:09; Admin Dose 70 MG; Start 02/11/17 at 21:00 Phenol (Chloraseptic Throat [place]) 1 spray PRN PRN [place] SORE THROAT; Start at 20:00 Docusate Sodium (Colace) 100 mg BID PO Last administered on 02/25/17 20:07; Admin Dose 100 MG; Start 02/11/17 at 21:00 Senna (Senokot) 1 tab HS PO Last administered on 02/25/17 20:07; Admin Dose 1 TAB; Start 02/11/17 at 21:00 Acetaminophen (Tylenol Tab) 650 mg Q4H PRN PO PAIN Last administered on 10:11; Admin Dose 650 MG; Start 02/11/17 at 20:00 Bisacodyl (Dulcolax Supp) 10 mg DAILY PRN [place] CONSTIPATION; Start 02/11/17 at 20 :00 Magnesium Hydroxide (Milk Of Mag) 30 ml BID PRN PO CONSTIPATION; Start at 20:00 Lactulose (Enulose) 20 gm DAILY PRN PO CONSTIPATION; Start 02/11/17 at 20:00 Nystatin (Nystatin Powder) 1 applic BID TOP Last administered on 02/25/17 20:13 ; Admin Dose 1 APPLIC; Start 02/13/17 at 21:00 Hydromorphone HCl (Dilaudid) 2 mg Q4H PRN PO PAIN Last administered on 22:47; Admin Dose 2 MG; Start 02/13/17 at 15:00 Pantoprazole (Protonix Tab) 40 mg DAILY@06 PO Last administered on 02/25/17 06: 43; Admin Dose 40 MG; Start 02/14/17 at 06:00 Tramadol HCl (Ultram) 50 mg Q6 PRN PO PAIN LEVEL 1-5 Last administered on 20:08; Admin Dose 50 MG; Start 02/15/17 at 14:00 Meclizine HCl (Antivert) 12.5 mg TID PRN PO dizziness Last administered on 08:59; Admin Dose 12.5 MG; Start 02/15/17 at 19:00 Diphenhydramine HCl (Benadryl) 25 mg Q6H PRN PO ITCHING Last administered on 21:52; Admin Dose 25 MG; Start 02/18/17 at 16:00 Baclofen (Lioresal) 10 mg BID PO Last administered on 02/25/17 20:07; Admin Dose 10 MG; Start 02/21/17 at 21:00 Topiramate (Topamax) 25 mg DAILY PO Last administered on 02/25/17 14:24; Admin Dose 25 MG; Start 02/25/17 at 12:30 LINDSAY WEISS MD Feb 26, 2017 00:25
[2017-02-26] MEDS: PANTOPRAZOLE (EC) 40 MG TAB PO SCH (06:40)
[2017-02-26] MEDS: TOPIRAMATE 25 MG TAB PO SCH (08:36)
[2017-02-26] MEDS: ASPIRIN (EC) 81 MG TAB PO SCH (08:36)
[2017-02-26] MEDS: BACLOFEN 10 MG TAB PO SCH ×2 (08:36→21:44)
[2017-02-26] MEDS: DOCUSATE SODIUM 100 MG CAP PO SCH ×2 (08:36→21:44)
[2017-02-26] MEDS: NYSTATIN 30 GM POWDER BTL TOP SCH ×2 (08:37→21:46)
[2017-02-26] MEDS: ENOXAPARIN 80 MG/0.8 ML SYG SC SCH ×2 (08:38→21:56)
--- NOTE | 2017-02-26 10:43 | PN ---
Date/Time of Note Date/Time of Note DATE: 02/26/17 TIME: 10:40 Assessment/Plan VTE Prophylaxis VTE Prophylaxis Intervention: LMWH Lines/Catheters IV Catheter Type (from Nrs): Saline Lock Urinary Cath still in place: No Assessment/Plan Assessment/Plan 1. 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 Continue PT/OT/ST. CGA for transfers and stairs, negotiating 10 stairs with bilateral rails. With intermittent headaches and dizziness since CVA, Neurology medically managing. 2. History of hypertension. Has been hypotensive. Continue abdominal binder/ TEDs when OOB. Medical management per internal medicine. 3. Lupus. Medical management per rheumatology. 4. Constipation. Bowel regimen adjusted. Nursing to administer PRN medication as well. Monitor. Subjective 24 Hr Interval Summary Free Text/Dictation Rehab progress note Subjective: Reports feeling constipated. Denies abdominal pain, no nausea or vomiting. ROS: Denies dysuria, denies urinary frequency. No chills. No shortness of breath , no chest pain. Exam/Review of Systems Vital Signs Vitals Vital Signs Date Time Temp Pulse Resp B/P Pulse Ox O2 Delivery O2 Flow Rate FiO2 02/25/17 20:00 98.1 76 18 107/68 97 Intake and Output 02/25/17 02/25/17 02/26/17 15:00 23:00 07:00 Intake Total 1200 ml 600 ml Balance 1200 ml 600 ml Exam General: Awake, alert, no acute distress CV: Regular rate, s1s2 Lungs: Respirations are nonlabored, no wheezing Abdomens soft, nontender, bowel sounds present, no rebound or guarding Extremities without cyanosis. LLE brace in place. Neuro: Moves LUE with antigravity strength. Follows simple commands. Results Result Diagram: 02/25/1735 02/25/17634 Medications Medications Current Medications Atorvastatin Calcium (Lipitor) 20 mg DAILY@21 PO Last administered on 02/25/17 20:08; Admin Dose 20 MG; Start 02/11/17 at 21:00 Enoxaparin Sodium (Lovenox) 70 mg Q12 SC Last administered on 02/26/17 08:38; Admin Dose 70 MG; Start 02/11/17 at 21:00 Phenol (Chloraseptic Throat [place]) 1 spray PRN PRN [place] SORE THROAT; Start at 20:00 Docusate Sodium (Colace) 100 mg BID PO Last administered on 02/26/17 08:36; Admin Dose 100 MG; Start 02/11/17 at 21:00 Senna (Senokot) 1 tab HS PO Last administered on 02/25/17 20:07; Admin Dose 1 TAB; Start 02/11/17 at 21:00 Acetaminophen (Tylenol Tab) 650 mg Q4H PRN PO PAIN Last administered on 10:11; Admin Dose 650 MG; Start 02/11/17 at 20:00 Bisacodyl (Dulcolax Supp) 10 mg DAILY PRN [place] CONSTIPATION; Start 02/11/17 at 20 :00 Magnesium Hydroxide (Milk Of Mag) 30 ml BID PRN PO CONSTIPATION; Start at 20:00 Lactulose (Enulose) 20 gm DAILY PRN PO CONSTIPATION; Start 02/11/17 at 20:00 Nystatin (Nystatin Powder) 1 applic BID TOP Last administered on 02/26/17 08:37 ; Admin Dose 1 APPLIC; Start 02/13/17 at 21:00 Hydromorphone HCl (Dilaudid) 2 mg Q4H PRN PO PAIN Last administered on 22:47; Admin Dose 2 MG; Start 02/13/17 at 15:00 Pantoprazole (Protonix Tab) 40 mg DAILY@06 PO Last administered on 02/26/17 06: 40; Admin Dose 40 MG; Start 02/14/17 at 06:00 Tramadol HCl (Ultram) 50 mg Q6 PRN PO PAIN LEVEL 1-5 Last administered on 20:08; Admin Dose 50 MG; Start 02/15/17 at 14:00 Meclizine HCl (Antivert) 12.5 mg TID PRN PO dizziness Last administered on 08:59; Admin Dose 12.5 MG; Start 02/15/17 at 19:00 Diphenhydramine HCl (Benadryl) 25 mg Q6H PRN PO ITCHING Last administered on 21:52; Admin Dose 25 MG; Start 02/18/17 at 16:00 Baclofen (Lioresal) 10 mg BID PO Last administered on 02/26/17 08:36; Admin Dose 10 MG; Start 02/21/17 at 21:00 Topiramate (Topamax) 25 mg DAILY PO Last administered on 02/26/17 08:36; Admin Dose 25 MG; Start 02/25/17 at 12:30 PRABHA WAGGONER Feb 26, 2017 10:43
[2017-02-26] MEDS: HYDROmorphONE 2 MG TAB PO PRN (12:49)
[2017-02-26 19:30] VITALS: BP 90/55; PULSE 42; RESP 14
[2017-02-26] MEDS: SENNA TAB PO SCH (21:44)
[2017-02-26] MEDS: ATORVASTATIN 20 MG TAB PO SCH (21:44)
--- NOTE | 2017-02-26 21:50 | CONS ---
Date/Time of Note Date/Time of Note DATE: 02/26/17 TIME: 21:47 Assessment/Plan Assessment/Plan Chief Complaint/Hosp Course HTN HX LUPUS CVA W LEFT SIDE WEAKNESS HX MIGRAINE better dizziness plan pt ot antivert prn PT/OT per rheumatology mri seen Problems: Consultation Date/Type/Reason Admit Date/Time Feb 11, 2017 at 17:51 Type of Consultation: renal 24 HR Interval Summary Constitutional: improved Exam/Review of Systems Vital Signs Vitals Vital Signs Date Time Temp Pulse Resp B/P Pulse Ox O2 Delivery O2 Flow Rate FiO2 02/25/17 20:00 98.1 76 18 107/68 97 Intake and Output 02/25/17 02/25/17 02/26/17 15:00 23:00 07:00 Intake Total 1200 ml 600 ml Balance 1200 ml 600 ml Exam Neck: supple Respiratory: clear to auscultation Cardiovascular: regular rate and rhythm Gastrointestinal: soft Results Result Diagram: 02/25/17 0635 02/25/17 0635 Medications Medications Current Medications Atorvastatin Calcium (Lipitor) 20 mg DAILY@21 PO Last administered on 02/26/17 21:44; Admin Dose 20 MG; Start 02/11/17 at 21:00 Enoxaparin Sodium (Lovenox) 70 mg Q12 SC Last administered on 02/26/17 08:38; Admin Dose 70 MG; Start 02/11/17 at 21:00 Phenol (Chloraseptic Throat [place]) 1 spray PRN PRN [place] SORE THROAT; Start at 20:00 Docusate Sodium (Colace) 100 mg BID PO Last administered on 02/26/17 21:44; Admin Dose 100 MG; Start 02/11/17 at 21:00 Acetaminophen (Tylenol Tab) 650 mg Q4H PRN PO PAIN Last administered on 10:11; Admin Dose 650 MG; Start 02/11/17 at 20:00 Bisacodyl (Dulcolax Supp) 10 mg DAILY PRN [place] CONSTIPATION; Start 02/11/17 at 20 :00 Magnesium Hydroxide (Milk Of Mag) 30 ml BID PRN PO CONSTIPATION; Start at 20:00 Lactulose (Enulose) 20 gm DAILY PRN PO CONSTIPATION Last administered on 10:49; Admin Dose 20 [place]; Start 02/11/17 at 20:00 Nystatin (Nystatin Powder) 1 applic BID TOP Last administered on 02/26/17 08:37 ; Admin Dose 1 APPLIC; Start 02/13/17 at 21:00 Hydromorphone HCl (Dilaudid) 2 mg Q4H PRN PO PAIN Last administered on 12:49; Admin Dose 2 MG; Start 02/13/17 at 15:00 Pantoprazole (Protonix Tab) 40 mg DAILY@06 PO Last administered on 02/26/17 06: 40; Admin Dose 40 MG; Start 02/14/17 at 06:00 Tramadol HCl (Ultram) 50 mg Q6 PRN PO PAIN LEVEL 1-5 Last administered on 20:08; Admin Dose 50 MG; Start 02/15/17 at 14:00 Meclizine HCl (Antivert) 12.5 mg TID PRN PO dizziness Last administered on 08:59; Admin Dose 12.5 MG; Start 02/15/17 at 19:00 Diphenhydramine HCl (Benadryl) 25 mg Q6H PRN PO ITCHING Last administered on 21:52; Admin Dose 25 MG; Start 02/18/17 at 16:00 Baclofen (Lioresal) 10 mg BID PO Last administered on 02/26/17 21:44; Admin Dose 10 MG; Start 02/21/17 at 21:00 Topiramate (Topamax) 25 mg DAILY PO Last administered on 02/26/17 08:36; Admin Dose 25 MG; Start 02/25/17 at 12:30 Senna (Senokot) 2 tab HS PO Last administered on 02/26/17 21:44; Admin Dose 2 TAB; Start 02/26/17 at 21:00 LINDSAY WEISS MD Feb 26, 2017 21:50
[2017-02-27] MEDS: PANTOPRAZOLE (EC) 40 MG TAB PO SCH (06:39)
[2017-02-27 07:01] VITALS: BP 95/59; PULSE 78; RESP 14
[2017-02-27 07:30] VITALS: BP 95/52; RESP 18
[2017-02-27] MEDS: ASPIRIN (EC) 81 MG TAB PO SCH (09:04)
[2017-02-27] MEDS: BACLOFEN 10 MG TAB PO SCH ×2 (09:04→20:34)
[2017-02-27] MEDS: DOCUSATE SODIUM 100 MG CAP PO SCH ×2 (09:04→20:34)
[2017-02-27] MEDS: NYSTATIN 30 GM POWDER BTL TOP SCH ×2 (09:04→20:44)
[2017-02-27] MEDS: TOPIRAMATE 25 MG TAB PO SCH (09:04)
[2017-02-27] MEDS: ENOXAPARIN 80 MG/0.8 ML SYG SC SCH ×2 (09:06→20:41)
[2017-02-27] MEDS: HYDROmorphONE 2 MG TAB PO PRN (14:27)
[2017-02-27] MEDS: ATORVASTATIN 20 MG TAB PO SCH (20:34)
[2017-02-27] MEDS: SENNA TAB PO SCH (20:34)
[2017-02-27 20:59] VITALS: BP 111/66; RESP 16
--- NOTE | 2017-02-27 22:22 | PN ---
Date/Time of Note Date/Time of Note DATE: 02/27/17 TIME: 22:21 Assessment/Plan VTE Prophylaxis VTE Prophylaxis Intervention: other Lines/Catheters IV Catheter Type (from Nrs): Saline Lock Urinary Cath still in place: No Assessment/Plan Chief Complaint/Hosp Course HTN HX LUPUS CVA W LEFT SIDE WEAKNESS HX MIGRAINE better dizziness plan pt ot antivert prn PT/OT per rheumatology mri seen Problems: Subjective 24 Hr Interval Summary Constitutional: no complaints Exam/Review of Systems Vital Signs Vitals Vital Signs Date Time Temp Pulse Resp B/P Pulse Ox O2 Delivery O2 Flow Rate FiO2 02/27/17 20:59 98.0 70 16 111/66 99 02/27/17 07:01 Room Air Exam Neck: supple Respiratory: clear to auscultation Cardiovascular: regular rate and rhythm Results Result Diagram: 02/25/17 0635 02/25/17 0635 Results 24 hrs Laboratory Tests Test 02/27/17 09:13 Lab Scanned Report REFERENCE LAB Medications Medications Current Medications Atorvastatin Calcium (Lipitor) 20 mg DAILY@21 PO Last administered on 02/27/17 20:34; Admin Dose 20 MG; Start 02/11/17 at 21:00 Enoxaparin Sodium (Lovenox) 70 mg Q12 SC Last administered on 02/27/17 20:41; Admin Dose 70 MG; Start 02/11/17 at 21:00 Phenol (Chloraseptic Throat [place]) 1 spray PRN PRN [place] SORE THROAT; Start at 20:00 Docusate Sodium (Colace) 100 mg BID PO Last administered on 02/27/17 20:34; Admin Dose 100 MG; Start 02/11/17 at 21:00 Acetaminophen (Tylenol Tab) 650 mg Q4H PRN PO PAIN Last administered on 10:11; Admin Dose 650 MG; Start 02/11/17 at 20:00 Bisacodyl (Dulcolax Supp) 10 mg DAILY PRN [place] CONSTIPATION; Start 02/11/17 at 20 :00 Magnesium Hydroxide (Milk Of Mag) 30 ml BID PRN PO CONSTIPATION; Start at 20:00 Lactulose (Enulose) 20 gm DAILY PRN PO CONSTIPATION Last administered on 10:49; Admin Dose 20 [place]; Start 02/11/17 at 20:00 Nystatin (Nystatin Powder) 1 applic BID TOP Last administered on 02/27/17 09:04 ; Admin Dose 1 APPLIC; Start 02/13/17 at 21:00 Hydromorphone HCl (Dilaudid) 2 mg Q4H PRN PO PAIN Last administered on 14:27; Admin Dose 2 MG; Start 02/13/17 at 15:00 Pantoprazole (Protonix Tab) 40 mg DAILY@06 PO Last administered on 02/27/17 06: 39; Admin Dose 40 MG; Start 02/14/17 at 06:00 Tramadol HCl (Ultram) 50 mg Q6 PRN PO PAIN LEVEL 1-5 Last administered on 20:08; Admin Dose 50 MG; Start 02/15/17 at 14:00 Meclizine HCl (Antivert) 12.5 mg TID PRN PO dizziness Last administered on 08:59; Admin Dose 12.5 MG; Start 02/15/17 at 19:00 Diphenhydramine HCl (Benadryl) 25 mg Q6H PRN PO ITCHING Last administered on 21:52; Admin Dose 25 MG; Start 02/18/17 at 16:00 Baclofen (Lioresal) 10 mg BID PO Last administered on 02/27/17 20:34; Admin Dose 10 MG; Start 02/21/17 at 21:00 Topiramate (Topamax) 25 mg DAILY PO Last administered on 02/27/17 09:04; Admin Dose 25 MG; Start 02/25/17 at 12:30 Senna (Senokot) 2 tab HS PO Last administered on 02/27/17 20:34; Admin Dose 2 TAB; Start 02/26/17 at 21:00 LINDSAY WEISS MD Feb 27, 2017 22:22
[2017-02-28] MEDS: PANTOPRAZOLE (EC) 40 MG TAB PO SCH (06:21)
[2017-02-28 07:30] VITALS: BP 100/55; RESP 18
[2017-02-28] MEDS: ASPIRIN (EC) 81 MG TAB PO SCH (08:30)
[2017-02-28] MEDS: BACLOFEN 10 MG TAB PO SCH ×2 (08:30→20:23)
[2017-02-28] MEDS: DOCUSATE SODIUM 100 MG CAP PO SCH ×2 (08:30→20:23)
[2017-02-28] MEDS: TOPIRAMATE 25 MG TAB PO SCH (08:30)
[2017-02-28] MEDS: NYSTATIN 30 GM POWDER BTL TOP SCH ×2 (08:31→20:30)
[2017-02-28] MEDS: HYDROmorphONE 2 MG TAB PO PRN ×2 (08:45→17:10)
[2017-02-28] MEDS: ENOXAPARIN 80 MG/0.8 ML SYG SC SCH ×2 (10:07→20:30)
[2017-02-28 10:30] VITALS: BP 108/68; PULSE 68; RESP 18
--- NOTE | 2017-02-28 12:00 | CONS ---
Date/Time of Note Date/Time of Note DATE: 02/28/17 TIME: 11:59 Consult Date/Type/Reason Admit Date/Time Feb 11, 2017 at 17:51 Type of Consultation: renal Objective Vital Signs Date Time Temp Pulse Resp B/P Pulse Ox O2 Delivery O2 Flow Rate FiO2 02/28/17 07:30 98.1 68 18 100/55 98 02/27/17 07:01 Room Air Intake and Output 02/27/17 02/27/17 02/28/17 15:00 23:00 07:00 Intake Total 400 ml 820 ml 1020 ml Output Total 1200 ml Balance -800 ml 820 ml 1020 ml INTERDISCIPLINARY TEAM CONFERENCE BOWEL- Cont BLADDER-Cont SKIN- intact OT- DRESSING-sba/min BATHING-sba/min TOILETING-min PT- BED MOBILITY-sba TRANSFERS-cga AMBULATION-cga 130 SPEECH- COGNITION-mod DYPHAGIA-tolerating regular diet A/P- Interdisciplinary team conference held today. Please see interdisciplinary sheet. Working toward d.c. on 03/03 with post discharge follow up of physical therapy, occupational therapy. Results/Medications Result Diagram: 02/25/17 0635 02/25/17 0635 Medications Current Medications Atorvastatin Calcium (Lipitor) 20 mg DAILY@21 PO Last administered on 02/27/17 20:34; Admin Dose 20 MG; Start 02/11/17 at 21:00 Enoxaparin Sodium (Lovenox) 70 mg Q12 SC Last administered on 02/28/17 10:07; Admin Dose 70 MG; Start 02/11/17 at 21:00 Phenol (Chloraseptic Throat [place]) 1 spray PRN PRN [place] SORE THROAT; Start at 20:00 Docusate Sodium (Colace) 100 mg BID PO Last administered on 02/28/17 08:30; Admin Dose 100 MG; Start 02/11/17 at 21:00 Acetaminophen (Tylenol Tab) 650 mg Q4H PRN PO PAIN Last administered on 10:11; Admin Dose 650 MG; Start 02/11/17 at 20:00 Bisacodyl (Dulcolax Supp) 10 mg DAILY PRN [place] CONSTIPATION; Start 02/11/17 at 20 :00 Magnesium Hydroxide (Milk Of Mag) 30 ml BID PRN PO CONSTIPATION; Start at 20:00 Lactulose (Enulose) 20 gm DAILY PRN PO CONSTIPATION Last administered on 10:49; Admin Dose 20 GM; Start 02/11/17 at 20:00 Nystatin (Nystatin Powder) 1 applic BID TOP Last administered on 02/28/17 08: 31; Admin Dose 1 APPLIC; Start 02/13/17 at 21:00 Hydromorphone HCl (Dilaudid) 2 mg Q4H PRN PO PAIN Last administered on 08:45; Admin Dose 2 MG; Start 02/13/17 at 15:00 Pantoprazole (Protonix Tab) 40 mg DAILY@06 PO Last administered on 02/28/17 06 :21; Admin Dose 40 MG; Start 02/14/17 at 06:00 Tramadol HCl (Ultram) 50 mg Q6 PRN PO PAIN LEVEL 1-5 Last administered on 20:08; Admin Dose 50 MG; Start 02/15/17 at 14:00 Meclizine HCl (Antivert) 12.5 mg TID PRN PO dizziness Last administered on 08:59; Admin Dose 12.5 MG; Start 02/15/17 at 19:00 Diphenhydramine HCl (Benadryl) 25 mg Q6H PRN PO ITCHING Last administered on 21:52; Admin Dose 25 MG; Start 02/18/17 at 16:00 Baclofen (Lioresal) 10 mg BID PO Last administered on 02/28/17 08:30; Admin Dose 10 MG; Start 02/21/17 at 21:00 Topiramate (Topamax) 25 mg DAILY PO Last administered on 02/28/17 08:30; Admin Dose 25 MG; Start 02/25/17 at 12:30 Senna (Senokot) 2 tab HS PO Last administered on 02/27/17 20:34; Admin Dose 2 TAB; Start 02/26/17 at 21:00 LARISSA WILLS MD Feb 28, 2017 12:00
[2017-02-28] MEDS: MECLIZINE 12.5 MG TAB PO PRN (13:00)
--- NOTE | 2017-02-28 13:23 | CONS ---
Date/Time of Note Date/Time of Note DATE: 02/28/17 TIME: 13:16 Consult Date/Type/Reason Admit Date/Time Feb 11, 2017 at 17:51 Type of Consultation: Rheum Subjective Feels a little better. No new complaints. Aches at elbows, not at hands. No joint swelling. Objective Vital Signs Date Time Temp Pulse Resp B/P Pulse Ox O2 Delivery O2 Flow Rate FiO2 02/28/17 07:30 98.1 68 18 100/55 98 02/27/17 07:01 Room Air Intake and Output 02/27/17 02/27/17 02/28/17 15:00 23:00 07:00 Intake Total 400 ml 820 ml 1020 ml Output Total 1200 ml Balance -800 ml 820 ml 1020 ml Exam Alert Skin without rash. HEENT without acute lesions Neck supple Chest Clear heart RRR Abd soft. Ext. No synovitis Neurol without change. Mentation appears normal although speech a little slow. MRI results noted. Results/Medications Result Diagram: 02/25/17 0635 02/25/17 0635 Medications Current Medications Atorvastatin Calcium (Lipitor) 20 mg DAILY@21 PO Last administered on 02/27/17 20:34; Admin Dose 20 MG; Start 02/11/17 at 21:00 Enoxaparin Sodium (Lovenox) 70 mg Q12 SC Last administered on 02/28/17 10:07; Admin Dose 70 MG; Start 02/11/17 at 21:00 Phenol (Chloraseptic Throat [place]) 1 spray PRN PRN [place] SORE THROAT; Start at 20:00 Docusate Sodium (Colace) 100 mg BID PO Last administered on 02/28/17 08:30; Admin Dose 100 MG; Start 02/11/17 at 21:00 Acetaminophen (Tylenol Tab) 650 mg Q4H PRN PO PAIN Last administered on 10:11; Admin Dose 650 MG; Start 02/11/17 at 20:00 Bisacodyl (Dulcolax Supp) 10 mg DAILY PRN [place] CONSTIPATION; Start 02/11/17 at 20 :00 Magnesium Hydroxide (Milk Of Mag) 30 ml BID PRN PO CONSTIPATION; Start at 20:00 Lactulose (Enulose) 20 gm DAILY PRN PO CONSTIPATION Last administered on 10:49; Admin Dose 20 GM; Start 02/11/17 at 20:00 Nystatin (Nystatin Powder) 1 applic BID TOP Last administered on 02/28/17 08: 31; Admin Dose 1 APPLIC; Start 02/13/17 at 21:00 Hydromorphone HCl (Dilaudid) 2 mg Q4H PRN PO PAIN Last administered on 08:45; Admin Dose 2 MG; Start 02/13/17 at 15:00 Pantoprazole (Protonix Tab) 40 mg DAILY@06 PO Last administered on 02/28/17 06 :21; Admin Dose 40 MG; Start 02/14/17 at 06:00 Tramadol HCl (Ultram) 50 mg Q6 PRN PO PAIN LEVEL 1-5 Last administered on 20:08; Admin Dose 50 MG; Start 02/15/17 at 14:00 Meclizine HCl (Antivert) 12.5 mg TID PRN PO dizziness Last administered on 02/28 13:00; Admin Dose 12.5 MG; Start 02/15/17 at 19:00 Diphenhydramine HCl (Benadryl) 25 mg Q6H PRN PO ITCHING Last administered on 21:52; Admin Dose 25 MG; Start 02/18/17 at 16:00 Baclofen (Lioresal) 10 mg BID PO Last administered on 02/28/17 08:30; Admin Dose 10 MG; Start 02/21/17 at 21:00 Topiramate (Topamax) 25 mg DAILY PO Last administered on 02/28/17 08:30; Admin Dose 25 MG; Start 02/25/17 at 12:30 Senna (Senokot) 2 tab HS PO Last administered on 02/27/17 20:34; Admin Dose 2 TAB; Start 02/26/17 at 21:00 Assessment/Plan Chief Complaint/Hosp Course Ass. 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 Doubt vasculitis. 2. SLE Unclear if active. ESR and C-RP not particularly elevated and no rash or arthritis. Plan Continue present plan. Consider echo as per Neurology to r/o foramen ovale etiology. Problems: PATITO LO MD Feb 28, 2017 13:23
[2017-02-28] MEDS: ATORVASTATIN 20 MG TAB PO SCH (20:22)
[2017-02-28] MEDS: SENNA TAB PO SCH (20:23)
[2017-02-28 20:26] VITALS: BP 91/57; RESP 18
[2017-02-28] MEDS: DIPHENHYDRAMINE 25 MG CAP PO PRN (22:47)
--- NOTE | 2017-02-28 22:56 | CONS ---
Date/Time of Note Date/Time of Note DATE: 02/28/17 TIME: 22:55 Assessment/Plan Assessment/Plan Chief Complaint/Hosp Course HTN HX LUPUS CVA W LEFT SIDE WEAKNESS HX MIGRAINE better dizziness plan pt ot antivert prn PT/OT per rheumatology mri seen ptot Problems: Consultation Date/Type/Reason Admit Date/Time Feb 11, 2017 at 17:51 Type of Consultation: renal 24 HR Interval Summary Constitutional: no complaints Exam/Review of Systems Vital Signs Vitals Vital Signs Date Time Temp Pulse Resp B/P Pulse Ox O2 Delivery O2 Flow Rate FiO2 02/28/17 20:26 98.4 70 18 91/57 98 02/27/17 07:01 Room Air Intake and Output 02/27/17 02/27/17 02/28/17 15:00 23:00 07:00 Intake Total 400 ml 820 ml 1020 ml Output Total 1200 ml Balance -800 ml 820 ml 1020 ml Exam Neck: supple Respiratory: clear to auscultation Cardiovascular: regular rate and rhythm Extremities: No edema Neurological: other Results Result Diagram: 02/25/17 0635 02/25/17 0635 Medications Medications Current Medications Atorvastatin Calcium (Lipitor) 20 mg DAILY@21 PO Last administered on 20:22; Admin Dose 20 MG; Start 02/11/17 at 21:00 Enoxaparin Sodium (Lovenox) 70 mg Q12 SC Last administered on 02/28/17 20:30; Admin Dose 70 MG; Start 02/11/17 at 21:00 Phenol (Chloraseptic Throat [place]) 1 spray PRN PRN [place] SORE THROAT; Start at 20:00 Docusate Sodium (Colace) 100 mg BID PO Last administered on 02/28/17 20:23; Admin Dose 100 MG; Start 02/11/17 at 21:00 Acetaminophen (Tylenol Tab) 650 mg Q4H PRN PO PAIN Last administered on 10:11; Admin Dose 650 MG; Start 02/11/17 at 20:00 Bisacodyl (Dulcolax Supp) 10 mg DAILY PRN [place] CONSTIPATION; Start 02/11/17 at 20 :00 Magnesium Hydroxide (Milk Of Mag) 30 ml BID PRN PO CONSTIPATION; Start at 20:00 Lactulose (Enulose) 20 gm DAILY PRN PO CONSTIPATION Last administered on 10:49; Admin Dose 20 GM; Start 02/11/17 at 20:00 Nystatin (Nystatin Powder) 1 applic BID TOP Last administered on 02/28/17 20: 30; Admin Dose 1 APPLIC; Start 02/13/17 at 21:00 Hydromorphone HCl (Dilaudid) 2 mg Q4H PRN PO PAIN Last administered on 17:10; Admin Dose 2 MG; Start 02/13/17 at 15:00 Pantoprazole (Protonix Tab) 40 mg DAILY@06 PO Last administered on 02/28/17 06 :21; Admin Dose 40 MG; Start 02/14/17 at 06:00 Tramadol HCl (Ultram) 50 mg Q6 PRN PO PAIN LEVEL 1-5 Last administered on 20:08; Admin Dose 50 MG; Start 02/15/17 at 14:00 Meclizine HCl (Antivert) 12.5 mg TID PRN PO dizziness Last administered on 02/28 13:00; Admin Dose 12.5 MG; Start 02/15/17 at 19:00 Diphenhydramine HCl (Benadryl) 25 mg Q6H PRN PO ITCHING Last administered on 22:47; Admin Dose 25 MG; Start 02/18/17 at 16:00 Baclofen (Lioresal) 10 mg BID PO Last administered on 02/28/17 20:23; Admin Dose 10 MG; Start 02/21/17 at 21:00 Topiramate (Topamax) 25 mg DAILY PO Last administered on 02/28/17 08:30; Admin Dose 25 MG; Start 02/25/17 at 12:30 Senna (Senokot) 2 tab HS PO Last administered on 02/28/17 20:23; Admin Dose 2 TAB; Start 02/26/17 at 21:00 LINDSAY WEISS MD Feb 28, 2017 22:56
[2017-03-01] MEDS: PANTOPRAZOLE (EC) 40 MG TAB PO SCH (06:29)
[2017-03-01 07:35] VITALS: BP 96/62; RESP 18
[2017-03-01] MEDS: ASPIRIN (EC) 81 MG TAB PO SCH (08:36)
[2017-03-01] MEDS: DOCUSATE SODIUM 100 MG CAP PO SCH ×2 (08:36→20:05)
[2017-03-01] MEDS: TOPIRAMATE 25 MG TAB PO SCH (08:37)
[2017-03-01] MEDS: BACLOFEN 10 MG TAB PO SCH ×2 (08:37→20:05)
[2017-03-01] MEDS: ENOXAPARIN 80 MG/0.8 ML SYG SC SCH ×2 (08:37→20:48)
[2017-03-01] MEDS: NYSTATIN 30 GM POWDER BTL TOP SCH ×2 (08:38→20:49)
[2017-03-01] MEDS: MECLIZINE 12.5 MG TAB PO PRN (11:27)
--- NOTE | 2017-03-01 12:46 | CONS ---
Date/Time of Note Date/Time of Note DATE: 03/01/17 TIME: 12:46 Consult Date/Type/Reason Admit Date/Time Feb 11, 2017 at 17:51 Type of Consultation: renal Subjective Dizziness intermittently Objective pulm-cta abd-soft Vital Signs Date Time Temp Pulse Resp B/P Pulse Ox O2 Delivery O2 Flow Rate FiO2 03/01/17 07:35 98.4 76 18 96/62 98 02/27/17 07:01 Room Air Intake and Output 02/28/17 02/28/17 03/01/17 14:59 22:59 06:59 Intake Total 840 ml 950 ml Balance 840 ml 950 ml Results/Medications Result Diagram: 02/25/1735 02/25/17 0635 Medications Current Medications Atorvastatin Calcium (Lipitor) 20 mg DAILY@21 PO Last administered on 20:22; Admin Dose 20 MG; Start 02/11/17 at 21:00 Enoxaparin Sodium (Lovenox) 70 mg Q12 SC Last administered on 03/01/17 08:37; Admin Dose 70 MG; Start 02/11/17 at 21:00 Phenol (Chloraseptic Throat [place]) 1 spray PRN PRN [place] SORE THROAT; Start at 20:00 Docusate Sodium (Colace) 100 mg BID PO Last administered on 03/01/17 08:36; Admin Dose 100 MG; Start 02/11/17 at 21:00 Acetaminophen (Tylenol Tab) 650 mg Q4H PRN PO PAIN Last administered on 10:11; Admin Dose 650 MG; Start 02/11/17 at 20:00 Bisacodyl (Dulcolax Supp) 10 mg DAILY PRN [place] CONSTIPATION; Start 02/11/17 at 20 :00 Magnesium Hydroxide (Milk Of Mag) 30 ml BID PRN PO CONSTIPATION; Start at 20:00 Lactulose (Enulose) 20 gm DAILY PRN PO CONSTIPATION Last administered on 10:49; Admin Dose 20 GM; Start 02/11/17 at 20:00 Nystatin (Nystatin Powder) 1 applic BID TOP Last administered on 03/01/17 08: 38; Admin Dose 1 APPLIC; Start 02/13/17 at 21:00 Hydromorphone HCl (Dilaudid) 2 mg Q4H PRN PO PAIN Last administered on 17:10; Admin Dose 2 MG; Start 02/13/17 at 15:00 Pantoprazole (Protonix Tab) 40 mg DAILY@06 PO Last administered on 03/01/17 06 :29; Admin Dose 40 MG; Start 02/14/17 at 06:00 Tramadol HCl (Ultram) 50 mg Q6 PRN PO PAIN LEVEL 1-5 Last administered on 20:08; Admin Dose 50 MG; Start 02/15/17 at 14:00 Meclizine HCl (Antivert) 12.5 mg TID PRN PO dizziness Last administered on 03/01 11:27; Admin Dose 12.5 MG; Start 02/15/17 at 19:00 Diphenhydramine HCl (Benadryl) 25 mg Q6H PRN PO ITCHING Last administered on 22:47; Admin Dose 25 MG; Start 02/18/17 at 16:00 Baclofen (Lioresal) 10 mg BID PO Last administered on 03/01/17 08:37; Admin Dose 10 MG; Start 02/21/17 at 21:00 Topiramate (Topamax) 25 mg DAILY PO Last administered on 03/01/17 08:37; Admin Dose 25 MG; Start 02/25/17 at 12:30 Senna (Senokot) 2 tab HS PO Last administered on 02/28/17 20:23; Admin Dose 2 TAB; Start 02/26/17 at 21:00 Assessment/Plan Additional Assessment/Plan Rehab- L frontal infarct CVA; SLE [facility] HTN dysphagia-improving LARISSA WILLS MD Mar 01, 2017 12:46
--- NOTE | 2017-03-01 18:01 | PN ---
Date/Time of Note Date/Time of Note DATE: 03/01/17 TIME: 18:01 Assessment/Plan VTE Prophylaxis VTE Prophylaxis Intervention: other Lines/Catheters IV Catheter Type (from Nrs): [place] Urinary Cath still in place: No Assessment/Plan Chief Complaint/Hosp Course HTN HX LUPUS CVA W LEFT SIDE WEAKNESS HX MIGRAINE better dizziness plan pt ot antivert prn PT/OT per rheumatology mri seen ptot Problems: Subjective 24 Hr Interval Summary Gastrointestinal: no complaints Genitourinary: no complaints Exam/Review of Systems Vital Signs Vitals Vital Signs Date Time Temp Pulse Resp B/P Pulse Ox O2 Delivery O2 Flow Rate FiO2 03/01/17 07:35 98.4 76 18 96/62 98 02/27/17 07:01 Room Air Intake and Output 02/28/17 02/28/17 03/01/17 15:00 23:00 07:00 Intake Total 840 ml 950 ml Balance 840 ml 950 ml Exam Cardiovascular: regular rate and rhythm Gastrointestinal: soft Musculoskeletal: nl extremities to inspection Results Result Diagram: 02/25/17 0635 02/25/17 0635 Medications Medications Current Medications Atorvastatin Calcium (Lipitor) 20 mg DAILY@21 PO Last administered on 20:22; Admin Dose 20 MG; Start 02/11/17 at 21:00 Enoxaparin Sodium (Lovenox) 70 mg Q12 SC Last administered on 03/01/17 08:37; Admin Dose 70 MG; Start 02/11/17 at 21:00 Phenol (Chloraseptic Throat [place]) 1 spray PRN PRN [place] SORE THROAT; Start at 20:00 Docusate Sodium (Colace) 100 mg BID PO Last administered on 03/01/17 08:36; Admin Dose 100 MG; Start 02/11/17 at 21:00 Acetaminophen (Tylenol Tab) 650 mg Q4H PRN PO PAIN Last administered on 10:11; Admin Dose 650 MG; Start 02/11/17 at 20:00 Bisacodyl (Dulcolax Supp) 10 mg DAILY PRN [place] CONSTIPATION; Start 02/11/17 at 20 :00 Magnesium Hydroxide (Milk Of Mag) 30 ml BID PRN PO CONSTIPATION; Start at 20:00 Lactulose (Enulose) 20 gm DAILY PRN PO CONSTIPATION Last administered on 10:49; Admin Dose 20 GM; Start 02/11/17 at 20:00 Nystatin (Nystatin Powder) 1 applic BID TOP Last administered on 03/01/17 08: 38; Admin Dose 1 APPLIC; Start 02/13/17 at 21:00 Hydromorphone HCl (Dilaudid) 2 mg Q4H PRN PO PAIN Last administered on 17:10; Admin Dose 2 MG; Start 02/13/17 at 15:00 Pantoprazole (Protonix Tab) 40 mg DAILY@06 PO Last administered on 03/01/17 06 :29; Admin Dose 40 MG; Start 02/14/17 at 06:00 Tramadol HCl (Ultram) 50 mg Q6 PRN PO PAIN LEVEL 1-5 Last administered on 20:08; Admin Dose 50 MG; Start 02/15/17 at 14:00 Meclizine HCl (Antivert) 12.5 mg TID PRN PO dizziness Last administered on 03/01 11:27; Admin Dose 12.5 MG; Start 02/15/17 at 19:00 Diphenhydramine HCl (Benadryl) 25 mg Q6H PRN PO ITCHING Last administered on 22:47; Admin Dose 25 MG; Start 02/18/17 at 16:00 Baclofen (Lioresal) 10 mg BID PO Last administered on 03/01/17 08:37; Admin Dose 10 MG; Start 02/21/17 at 21:00 Topiramate (Topamax) 25 mg DAILY PO Last administered on 03/01/17 08:37; Admin Dose 25 MG; Start 02/25/17 at 12:30 Senna (Senokot) 2 tab HS PO Last administered on 02/28/17 20:23; Admin Dose 2 TAB; Start 02/26/17 at 21:00 LINDSAY WEISS MD Mar 01, 2017 18:01
[2017-03-01] MEDS: SENNA TAB PO SCH (20:05)
[2017-03-01] MEDS: ACETAMINOPHEN 325 MG TAB PO PRN (20:05)
[2017-03-01] MEDS: ATORVASTATIN 20 MG TAB PO SCH (20:05)
[2017-03-01 20:30] VITALS: BP 95/60; RESP 18
[2017-03-02] MEDS: PANTOPRAZOLE (EC) 40 MG TAB PO SCH (06:53)
[2017-03-02 08:00] VITALS: BP 98/60; RESP 18
[2017-03-02] MEDS: MECLIZINE 12.5 MG TAB PO PRN ×2 (08:26→16:27)
[2017-03-02] MEDS: NYSTATIN 30 GM POWDER BTL TOP SCH ×2 (08:26→21:43)
[2017-03-02] MEDS: TOPIRAMATE 25 MG TAB PO SCH (08:26)
[2017-03-02] MEDS: BACLOFEN 10 MG TAB PO SCH ×2 (08:27→21:22)
[2017-03-02] MEDS: ENOXAPARIN 80 MG/0.8 ML SYG SC SCH ×2 (08:27→21:47)
[2017-03-02] MEDS: ASPIRIN (EC) 81 MG TAB PO SCH (08:27)
[2017-03-02] MEDS: DOCUSATE SODIUM 100 MG CAP PO SCH ×2 (08:27→21:25)
--- NOTE | 2017-03-02 11:55 | CONS ---
Date/Time of Note Date/Time of Note DATE: 03/02/17 TIME: 11:55 Consult Date/Type/Reason Admit Date/Time Feb 11, 2017 at 17:51 Type of Consultation: renal Subjective Called by therapist who reported patient with dizziness when up for OOB activities. Noted to have hypotension Objective pulm-cta abd-soft Vital Signs Date Time Temp Pulse Resp B/P Pulse Ox O2 Delivery O2 Flow Rate FiO2 03/02/17 08:00 98.4 77 18 98/60 97 02/27/17 07:01 Room Air Intake and Output 03/01/17 03/01/17 03/02/17 14:59 22:59 06:59 Intake Total 1200 ml 600 ml 700 ml Balance 1200 ml 600 ml 700 ml Results/Medications Results 24 hrs Laboratory Tests Test 03/02/17 09:13 Lab Scanned Report REFERENCE LAB Medications Current Medications Atorvastatin Calcium (Lipitor) 20 mg DAILY@21 PO Last administered on 20:05; Admin Dose 20 MG; Start 02/11/17 at 21:00 Enoxaparin Sodium (Lovenox) 70 mg Q12 SC Last administered on 03/02/17 08:27; Admin Dose 70 MG; Start 02/11/17 at 21:00 Phenol (Chloraseptic Throat [place]) 1 spray PRN PRN [place] SORE THROAT; Start at 20:00 Docusate Sodium (Colace) 100 mg BID PO Last administered on 03/02/17 08:27; Admin Dose 100 MG; Start 02/11/17 at 21:00 Acetaminophen (Tylenol Tab) 650 mg Q4H PRN PO PAIN Last administered on 20:05; Admin Dose 650 MG; Start 02/11/17 at 20:00 Bisacodyl (Dulcolax Supp) 10 mg DAILY PRN [place] CONSTIPATION; Start 02/11/17 at 20 :00 Magnesium Hydroxide (Milk Of Mag) 30 ml BID PRN PO CONSTIPATION; Start at 20:00 Lactulose (Enulose) 20 gm DAILY PRN PO CONSTIPATION Last administered on 10:49; Admin Dose 20 GM; Start 02/11/17 at 20:00 Nystatin (Nystatin Powder) 1 applic BID TOP Last administered on 03/02/17 08: 26; Admin Dose 1 APPLIC; Start 02/13/17 at 21:00 Hydromorphone HCl (Dilaudid) 2 mg Q4H PRN PO PAIN Last administered on 17:10; Admin Dose 2 MG; Start 02/13/17 at 15:00 Pantoprazole (Protonix Tab) 40 mg DAILY@06 PO Last administered on 03/02/17 06 :53; Admin Dose 40 MG; Start 02/14/17 at 06:00 Tramadol HCl (Ultram) 50 mg Q6 PRN PO PAIN LEVEL 1-5 Last administered on 20:08; Admin Dose 50 MG; Start 02/15/17 at 14:00 Meclizine HCl (Antivert) 12.5 mg TID PRN PO dizziness Last administered on 03/02 08:26; Admin Dose 12.5 MG; Start 02/15/17 at 19:00 Diphenhydramine HCl (Benadryl) 25 mg Q6H PRN PO ITCHING Last administered on 22:47; Admin Dose 25 MG; Start 02/18/17 at 16:00 Baclofen (Lioresal) 10 mg BID PO Last administered on 03/02/17 08:27; Admin Dose 10 MG; Start 02/21/17 at 21:00 Topiramate (Topamax) 25 mg DAILY PO Last administered on 03/02/17 08:26; Admin Dose 25 MG; Start 02/25/17 at 12:30 Senna 2 tab 2 tab HS PO Last administered on 03/01/17 20:05; Admin Dose 2 TAB ; Start 02/26/17 at 21:00 Sodium Chloride (NS) 500 ml @ 500 mls/hr Q1H ONCE IV ; Start 03/02/17 at 12:00 ; Stop 03/02/17 at 12:59 Assessment/Plan Additional Assessment/Plan Rehab- L frontal infarct CVA; SLE Activites as tolerated Orthostatic Hypotension- IVF, abd binder and anabel cortese for OOB HTN dysphagia-improving LARISSA WILLS MD Mar 02, 2017 11:55
[2017-03-02] MEDS ORDERED: SOD CHLORIDE 0.9% 500 ML IV ONE (12:00)
[2017-03-02 12:43] LABS: ADD SCAN DIFF NO
[2017-03-02 13:16] LABS: CALCIUM 8.1 mg/dl (8.4-10.2); CREATININE 0.7 mg/dl (0.44-1.00); POTASSIUM 3.5 mmol/L (3.5-5.1)
--- NOTE | 2017-03-02 13:33 | CONS ---
Date/Time of Note Date/Time of Note DATE: 03/02/17 TIME: 13:24 Consult Date/Type/Reason Admit Date/Time Feb 11, 2017 at 17:51 Type of Consultation: Rheum Subjective No new complaints. Light headed at times. Objective Vital Signs Date Time Temp Pulse Resp B/P Pulse Ox O2 Delivery O2 Flow Rate FiO2 03/02/17 08:00 98.4 77 18 98/60 97 02/27/17 07:01 Room Air Intake and Output 03/01/17 03/01/17 03/02/17 15:00 23:00 07:00 Intake Total 1200 ml 600 ml 700 ml Balance 1200 ml 600 ml 700 ml Exam Alert Skin without rash. HEENT without acute lesions Neck supple Chest Clear heart RRR Abd soft. Ext. No synovitis Neurol without change. Mentation appears normal although speech a little slow. Results/Medications Result Diagram: 03/02/17 1232 Results 24 hrs Laboratory Tests Test 03/02/17 09:13 03/02/17 12:32 Lab Scanned Report REFERENCE LAB Sodium Level 137 Potassium Level 3.5 Chloride Level 107 Carbon Dioxide Level 21 Anion Gap 13 Blood Urea Nitrogen 10 Creatinine 0.70 Glucose Level 95 Calcium Level 8.1 L Medications Current Medications Atorvastatin Calcium (Lipitor) 20 mg DAILY@21 PO Last administered on 20:05; Admin Dose 20 MG; Start 02/11/17 at 21:00 Enoxaparin Sodium (Lovenox) 70 mg Q12 SC Last administered on 03/02/17 08:27; Admin Dose 70 MG; Start 02/11/17 at 21:00 Phenol (Chloraseptic Throat [place]) 1 spray PRN PRN [place] SORE THROAT; Start at 20:00 Docusate Sodium (Colace) 100 mg BID PO Last administered on 03/02/17 08:27; Admin Dose 100 MG; Start 02/11/17 at 21:00 Acetaminophen (Tylenol Tab) 650 mg Q4H PRN PO PAIN Last administered on 20:05; Admin Dose 650 MG; Start 02/11/17 at 20:00 Bisacodyl (Dulcolax Supp) 10 mg DAILY PRN [place] CONSTIPATION; Start 02/11/17 at 20 :00 Magnesium Hydroxide (Milk Of Mag) 30 ml BID PRN PO CONSTIPATION; Start at 20:00 Lactulose (Enulose) 20 gm DAILY PRN PO CONSTIPATION Last administered on 10:49; Admin Dose 20 GM; Start 02/11/17 at 20:00 Nystatin (Nystatin Powder) 1 applic BID TOP Last administered on 03/02/17 08: 26; Admin Dose 1 APPLIC; Start 02/13/17 at 21:00 Hydromorphone HCl (Dilaudid) 2 mg Q4H PRN PO PAIN Last administered on 17:10; Admin Dose 2 MG; Start 02/13/17 at 15:00 Pantoprazole (Protonix Tab) 40 mg DAILY@06 PO Last administered on 03/02/17 06 :53; Admin Dose 40 MG; Start 02/14/17 at 06:00 Tramadol HCl (Ultram) 50 mg Q6 PRN PO PAIN LEVEL 1-5 Last administered on 20:08; Admin Dose 50 MG; Start 02/15/17 at 14:00 Meclizine HCl (Antivert) 12.5 mg TID PRN PO dizziness Last administered on 03/02 08:26; Admin Dose 12.5 MG; Start 02/15/17 at 19:00 Diphenhydramine HCl (Benadryl) 25 mg Q6H PRN PO ITCHING Last administered on 22:47; Admin Dose 25 MG; Start 02/18/17 at 16:00 Baclofen (Lioresal) 10 mg BID PO Last administered on 03/02/17 08:27; Admin Dose 10 MG; Start 02/21/17 at 21:00 Topiramate (Topamax) 25 mg DAILY PO Last administered on 03/02/17 08:26; Admin Dose 25 MG; Start 02/25/17 at 12:30 Senna (Senokot) 2 tab HS PO Last administered on 03/01/17 20:05; Admin Dose 2 TAB; Start 02/26/17 at 21:00 Assessment/Plan Chief Complaint/Hosp Course Ass. 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 Doubt vasculitis. 2. SLE Unclear if active. ESR and C-RP not particularly elevated and no rash or arthritis. Plan Continue present plan. Consider echo as per Neurology to r/o foramen ovale etiology. Will resume Hydroxychloroquine Problems: PATITO LO MD Mar 02, 2017 13:33
[2017-03-02 14:06] LABS: BASOPHILS % 0.3 % (0.0-2.0); EOSINOPHILS # 0.1 10^3/ul (0.0-0.5); HEMATOCRIT 38.5 % (37.0-47.0); HEMOGLOBIN 12.5 g/dl (12.0-16.0); LYMPHOCYTES # 2.5 10^3/ul (0.8-2.9); MEAN CORPUSCULAR HEMOGLOBIN 28.2 pg (29.0-33.0); MEAN CORPUSCULAR HGB CONC 32.5 g/dl (32.0-37.0); MEAN CORPUSCULAR VOLUME 86.9 fl (82.0-101.0); MEAN PLATELET VOLUME 11.1 fl (7.4-10.4); MONOCYTE # 0.8 10^3/ul (0.3-0.9); MONOCYTES % 8.7 % (0.0-11.0); NEUTROPHIL # 5.2 10^3/ul (1.6-7.5); NEUTROPHILS % 60.8 % (39.0-77.0); PLATELET COUNT 337 10^3/UL (140-415); RED BLOOD COUNT 4.43 10^6/ul (4.20-5.40); WHITE BLOOD COUNT 8.6 10^3/ul (4.8-10.8)
[2017-03-02] MEDS: HYDROmorphONE 2 MG TAB PO PRN (16:27)
--- NOTE | 2017-03-02 20:05 | CONS ---
Date/Time of Note Date/Time of Note DATE: 03/02/17 TIME: 20:05 Assessment/Plan Assessment/Plan Chief Complaint/Hosp Course HTN HX LUPUS CVA W LEFT SIDE WEAKNESS HX MIGRAINE better dizziness plan pt ot antivert prn PT/OT per rheumatology ptot Problems: Consultation Date/Type/Reason Admit Date/Time Feb 11, 2017 at 17:51 Type of Consultation: renal 24 HR Interval Summary Constitutional: no complaints Exam/Review of Systems Vital Signs Vitals Vital Signs Date Time Temp Pulse Resp B/P Pulse Ox O2 Delivery O2 Flow Rate FiO2 03/02/17 08:00 98.4 77 18 98/60 97 02/27/17 07:01 Room Air Intake and Output 03/01/17 03/01/17 03/02/17 15:00 23:00 07:00 Intake Total 1200 ml 600 ml 700 ml Balance 1200 ml 600 ml 700 ml Exam Respiratory: clear to auscultation Cardiovascular: regular rate and rhythm Gastrointestinal: soft Musculoskeletal: nl extremities to inspection Results Result Diagram: 03/02/17 1232 03/02/17 1232 Results 24 hrs Laboratory Tests Test 03/02/17 09:13 03/02/17 12:32 Lab Scanned Report REFERENCE LAB White Blood Count 8.6 Red Blood Count 4.43 Hemoglobin 12.5 Hematocrit 38.5 Mean Corpuscular Volume 86.9 Mean Corpuscular Hemoglobin 28.2 L Mean Corpuscular Hemoglobin Concent 32.5 Red Cell Distribution Width 14.0 Platelet Count 337 Mean Platelet Volume 11.1 H Neutrophils % 60.8 Lymphocytes % 29.0 Monocytes % 8.7 Eosinophils % 1.0 Basophils % 0.3 Nucleated Red Blood Cells % 0.0 Neutrophils # 5.2 Lymphocytes # 2.5 Monocytes # 0.8 Eosinophils # 0.1 Basophils # 0.0 Nucleated Red Blood Cells # 0.0 Sodium Level 137 Potassium Level 3.5 Chloride Level 107 Carbon Dioxide Level 21 Anion Gap 13 Blood Urea Nitrogen 10 Creatinine 0.70 Glucose Level 95 Calcium Level 8.1 L Medications Medications Current Medications Atorvastatin Calcium (Lipitor) 20 mg DAILY@21 PO Last administered on 20:05; Admin Dose 20 MG; Start 02/11/17 at 21:00 Enoxaparin Sodium (Lovenox) 70 mg Q12 SC Last administered on 03/02/17 08:27; Admin Dose 70 MG; Start 02/11/17 at 21:00 Phenol (Chloraseptic Throat [place]) 1 spray PRN PRN [place] SORE THROAT; Start at 20:00 Docusate Sodium (Colace) 100 mg BID PO Last administered on 03/02/17 08:27; Admin Dose 100 MG; Start 02/11/17 at 21:00 Acetaminophen (Tylenol Tab) 650 mg Q4H PRN PO PAIN Last administered on 20:05; Admin Dose 650 MG; Start 02/11/17 at 20:00 Bisacodyl (Dulcolax Supp) 10 mg DAILY PRN [place] CONSTIPATION; Start 02/11/17 at 20 :00 Magnesium Hydroxide (Milk Of Mag) 30 ml BID PRN PO CONSTIPATION; Start at 20:00 Lactulose (Enulose) 20 gm DAILY PRN PO CONSTIPATION Last administered on 10:49; Admin Dose 20 GM; Start 02/11/17 at 20:00 Nystatin (Nystatin Powder) 1 applic BID TOP Last administered on 03/02/17 08: 26; Admin Dose 1 APPLIC; Start 02/13/17 at 21:00 Hydromorphone HCl (Dilaudid) 2 mg Q4H PRN PO PAIN Last administered on 16:27; Admin Dose 2 MG; Start 02/13/17 at 15:00 Pantoprazole (Protonix Tab) 40 mg DAILY@06 PO Last administered on 03/02/17 06 :53; Admin Dose 40 MG; Start 02/14/17 at 06:00 Tramadol HCl (Ultram) 50 mg Q6 PRN PO PAIN LEVEL 1-5 Last administered on 20:08; Admin Dose 50 MG; Start 02/15/17 at 14:00 Meclizine HCl (Antivert) 12.5 mg TID PRN PO dizziness Last administered on 03/02 16:27; Admin Dose 12.5 MG; Start 02/15/17 at 19:00 Diphenhydramine HCl (Benadryl) 25 mg Q6H PRN PO ITCHING Last administered on 22:47; Admin Dose 25 MG; Start 02/18/17 at 16:00 Baclofen (Lioresal) 10 mg BID PO Last administered on 03/02/17 08:27; Admin Dose 10 MG; Start 02/21/17 at 21:00 Topiramate (Topamax) 25 mg DAILY PO Last administered on 03/02/17 08:26; Admin Dose 25 MG; Start 02/25/17 at 12:30 Senna (Senokot) 2 tab HS PO Last administered on 03/01/17 20:05; Admin Dose 2 TAB; Start 02/26/17 at 21:00 Hydroxychloroquine Sulfate (Plaquenil) 200 mg BID PO ; Start 03/02/17 at 21:00 LINDSAY WEISS MD Mar 02, 2017 20:05
[2017-03-02] MEDS: SENNA TAB PO SCH (21:24)
[2017-03-02] MEDS: ATORVASTATIN 20 MG TAB PO SCH (21:25)
[2017-03-02] MEDS: HYDROXYCHLOROQUINE 200 MG TAB PO SCH (21:26)
[2017-03-03] MEDS: DIPHENHYDRAMINE 25 MG CAP PO PRN (00:55)
[2017-03-03] MEDS: PANTOPRAZOLE (EC) 40 MG TAB PO SCH (06:36)
[2017-03-03 07:30] VITALS: BP 98/57; RESP 18
[2017-03-03] MEDS: DOCUSATE SODIUM 100 MG CAP PO SCH (08:39)
[2017-03-03] MEDS: TOPIRAMATE 25 MG TAB PO SCH (08:39)
[2017-03-03] MEDS: BACLOFEN 10 MG TAB PO SCH (08:39)
[2017-03-03] MEDS: HYDROmorphONE 2 MG TAB PO PRN (08:40)
[2017-03-03] MEDS: ASPIRIN (EC) 81 MG TAB PO SCH (08:45)
[2017-03-03] MEDS: ENOXAPARIN 80 MG/0.8 ML SYG SC SCH (08:50)
[2017-03-03] MEDS: NYSTATIN 30 GM POWDER BTL TOP SCH (08:50)
[2017-03-03] MEDS: MECLIZINE 12.5 MG TAB PO PRN (10:33)
[2017-03-03] MEDS: HYDROXYCHLOROQUINE 200 MG TAB PO SCH (10:33)
[2017-03-03 12:00] VITALS: BP 120/56; PULSE 70
--- NOTE | 2017-03-03 13:02 | CONS ---
Date/Time of Note Date/Time of Note DATE: 03/03/17 TIME: 12:55 Consult Date/Type/Reason Admit Date/Time Feb 11, 2017 at 17:51 Type of Consultation: Rheum Subjective Much improved overall. Talking more fluently. Alert and oriented. No new complaints. Echo done today. Results pending Objective Vital Signs Date Time Temp Pulse Resp B/P Pulse Ox O2 Delivery O2 Flow Rate FiO2 03/03/17 07:30 99.1 71 18 98/57 97 02/27/17 07:01 Room Air Intake and Output 03/02/17 03/02/17 03/03/17 15:00 23:00 07:00 Intake Total 1750 ml 400 ml 600 ml Balance 1750 ml 400 ml 600 ml Results/Medications Result Diagram: 03/02/17 1232 03/02/17 1232 Medications Current Medications Atorvastatin Calcium (Lipitor) 20 mg DAILY@21 PO Last administered on 21:25; Admin Dose 20 MG; Start 02/11/17 at 21:00 Enoxaparin Sodium (Lovenox) 70 mg Q12 SC Last administered on 03/03/17 08:50; Admin Dose 70 MG; Start 02/11/17 at 21:00 Phenol (Chloraseptic Throat [place]) 1 spray PRN PRN MT SORE THROAT; Start at 20:00 Docusate Sodium (Colace) 100 mg BID PO Last administered on 03/03/17 08:39; Admin Dose 100 MG; Start 02/11/17 at 21:00 Acetaminophen (Tylenol Tab) 650 mg Q4H PRN PO PAIN Last administered on 20:05; Admin Dose 650 MG; Start 02/11/17 at 20:00 Bisacodyl (Dulcolax Supp) 10 mg DAILY PRN [place] CONSTIPATION; Start 02/11/17 at 20 :00 Magnesium Hydroxide (Milk Of Mag) 30 ml BID PRN PO CONSTIPATION; Start at 20:00 Lactulose (Enulose) 20 gm DAILY PRN PO CONSTIPATION Last administered on 10:49; Admin Dose 20 GM; Start 02/11/17 at 20:00 Nystatin (Nystatin Powder) 1 applic BID TOP Last administered on 03/02/17 21: 43; Admin Dose 1 APPLIC; Start 02/13/17 at 21:00 Hydromorphone HCl (Dilaudid) 2 mg Q4H PRN PO PAIN Last administered on 08:40; Admin Dose 2 MG; Start 02/13/17 at 15:00 Pantoprazole (Protonix Tab) 40 mg DAILY@06 PO Last administered on 03/03/17 06 :36; Admin Dose 40 MG; Start 02/14/17 at 06:00 Tramadol HCl (Ultram) 50 mg Q6 PRN PO PAIN LEVEL 1-5 Last administered on 20:08; Admin Dose 50 MG; Start 02/15/17 at 14:00 Meclizine HCl (Antivert) 12.5 mg TID PRN PO dizziness Last administered on 03/03 10:33; Admin Dose 12.5 MG; Start 02/15/17 at 19:00 Diphenhydramine HCl (Benadryl) 25 mg Q6H PRN PO ITCHING Last administered on 00:55; Admin Dose 25 MG; Start 02/18/17 at 16:00 Baclofen (Lioresal) 10 mg BID PO Last administered on 03/03/17 08:39; Admin Dose 10 MG; Start 02/21/17 at 21:00 Topiramate (Topamax) 25 mg DAILY PO Last administered on 03/03/17 08:39; Admin Dose 25 MG; Start 02/25/17 at 12:30 Senna (Senokot) 2 tab HS PO Last administered on 03/02/17 21:24; Admin Dose 2 TAB; Start 02/26/17 at 21:00 Hydroxychloroquine Sulfate (Plaquenil) 200 mg BID PO Last administered on 10:33; Admin Dose 200 MG; Start 03/02/17 at 21:00 Assessment/Plan Chief Complaint/Hosp Course Ass. 1 s/p CVA Doubt vasculitis. Phospholipid panel all negative. 2. SLE Unclear if active. ESR and C-RP not particularly elevated and no rash or arthritis. Plan Continue present plan. Continue Hydroxychloroquine 200mg bid Problems: PATITO LO MD Mar 03, 2017 13:02
--- NOTE | 2017-03-03 19:26 | RADRPT ---
Echocardiogram Report Patient Name: MARLON GARVEY Gender: Female Date: 1975 Study Date: 03-Mar-2017 [place] [employer] Group Leader: Yayo Terry [facility] Location: [facility] Ref. Physician: LINDSAY WEISS Quality: Adequate Procedures: Transthoracic echocardiogram with complete 2D, M-Mode, and doppler examination. Indications: Cerebrovascular Accident. 2D/M Mode Doppler Measurement Value Normal Ranges Measurement Value Normal Ranges LVIDd 2D 3.9 3.5 - 5.6 cm AV Peak Mark 1.3 m/sec LVIDs 2D 2.5 2.1 - 4.1 cm AV Peak PG 7.0 mmHg FS 2D 37.8 % LVOT Peak Mark 1.1 m/sec LVPWd 2D 0.8 0.6 - 1.1 cm LVOT Peak PG 5.0 mmHg IVSd 2D 0.8 0.6 - 1.1 cm MV E Peak Mark 0.7 m/sec IVS/LVPW 2D 1.0 MV A Peak Mark 0.8 m/sec AoR Diam 2D 2.8 2.0 - 3.7 cm MV E/A 0.9 LA/Ao 2D 1 0 - 1 MV Decel Time 225 msec EDV 2D 61.2 cm3 MV E/A 0.9 ESV 2D 14.7 cm3 TR Peak Mark 2.3 m/sec LA Dimen 2D 3.0 2.3 - 4.0 cm TR Peak PG 22.0 mmHg RVSP 25.0 mmHg Findings Left Ventricle: Normal left ventricular systolic function. Normal left ventricular cavity size. Normal left ventricular wall thickness. Ejection fraction is visually estimated at 55 %. Right Ventricle: Normal right ventricular size. Normal right ventricular systolic function. Left Atrium: The left atrium is normal in size. Right Atrium: The right atrium is normal in size. Atrial Septum: Bubble study was performed with and with out valsalva indicating evidence of intra atrial shunt. Mitral Valve: Normal appearance and function of the mitral valve with trace physiologic regurgitation. Aortic Valve: Normal appearance of the aortic valve. No significant aortic stenosis or insufficiency. Tricuspid Valve: Normal appearance of the tricuspid valve. Estimated peak PA systolic pressure 25 mmHg. There is mild tricuspid regurgitation. Pulmonic Valve: Normal pulmonic valve appearance. Pericardium: Normal pericardium with no significant pericardial effusion. Aorta: Normal aortic root. IVC: Normal size and normal respiratory collapse consistent with normal right atrial pressure. Conclusions Normal left ventricular systolic function. Normal left ventricular cavity size. Normal left ventricular wall thickness. Ejection fraction is visually estimated at 55 %. Bubble study was performed with and with out valsalva indicating evidence of probable intra atrial shunt such as PFO/ASD. Normal appearance and function of the mitral valve with trace physiologic regurgitation. Normal appearance of the tricuspid valve. Estimated peak PA systolic pressure 25 mmHg. There is mild tricuspid regurgitation. Electronically Signed By: Anton Sharma 03-Mar-2017 19:25:43 -0700 Patient Name: MARLON GARVEY Study Date: 03-Mar-2017 [id number]
== END 2017-03-03 13:30 | disposition home health service (06) | DRG 57 ==
LOC: EDBD 17:51 → VRC 17:51
PROVIDERS: ADMIT Physical Medicine & Rehabilitation; ATTEND Internal Medicine Nephrology
DX: I69.954 Hemiplegia and hemiparesis following unspecified cerebrovascular disease affecting left non-dominant side (principal); M32.9 Systemic lupus erythematosus, unspecified; I10 Essential (primary) hypertension; I69.920 Aphasia following unspecified cerebrovascular disease; I69.991 Dysphagia following unspecified cerebrovascular disease; R13.12 Dysphagia, oropharyngeal phase
CPT/HCPCS: 70551; 80048; 80053; 81001; 81003; 85025; 85651; 86140; 86226; 86235; 87081; 87086; 92507; 92523; 92526; 92610; 93306; 97110; 97112; 97116; 97150; 97163; 97167; 97530; 97535; 97542; C9113; J1170; J1200; J7040; L1820